=== PATIENT | female | born 1960 | race Caucasian/White ===

== ENCOUNTER 2023-06-21 01:13 | Inpatient (IN) | payer OTHER, SELFPAY ==
[2023-06-20 19:02] VITALS: BP 126/95
--- NOTE | 2023-06-20 19:36 | ED.GENMED ---
History of Present Illness
<MEHDI Fernandez - Last Filed: 06/22/23 23:26>
General
Chief Complaint: Swelling
Source: patient
Exam Limitations: none
Time Seen by Provider: 06/20/23 19:21
Nursing documentation reviewed up to this point in time: agreed with
Travel History
Have you had any contact with someone who has COVID-19?: No
Do you have any symptoms of coronavirus? Fever > 100 degrees, chills, cough, shortness of breath, sore throat, loss of taste or smell, muscle aches, or headache?: No
History of Present Illness
History of Present Illness:
63-year-old female currently being treated for multiple myeloma presents to the ER for evaluation of left lower leg swelling. She has noticed her left lower leg to be swollen for the past 3 days. She also reports she has been mildly short winded.
She denies any recent fevers. She does report she recently was treated for sinus infection at her primary care office and is on antibiotics. She was seen by , her grapple yarder operator today for asthma who did recommend she get a Doppler of left
lower extremity.
She is treated at [facility] by DR Rasheed.
Past History
<MEHDI Fernandez - Last Filed: 06/22/23 23:26>
Past History
ED Past Medical History: Cancer, GERD and HTN
ED Past Surgical History: Appendectomy
Social History
Tobacco: Non-smoker
Alcohol: None
Drug: None
Personal:
Living: with family
Review of Systems
<MEHDI Fernandez - Last Filed: 06/22/23 23:26>
Review of Systems
Allergies reviewed?: Yes
All Other Systems: ROS reviewed and negative except as documented in HPI and ROS
Constitutional: Reports no symptoms; Denies fever, fatigue or chills
EENT: Reports no symptoms
Respiratory: Reports trouble breathing
Cardiac: Reports no symptoms
ABD/GI: Reports no symptoms
Musculoskeletal: Reports other (lle swelling /discomfort )
Skin: Reports no symptoms
Neurological: Reports no symptoms
Psychiatric: Reports no symptoms
Phy Exam
<MEHDI Fernandez - Last Filed: 06/22/23 23:26>
General Physical Exam
General Presentation: no apparent distress
General age: appears stated age
General Skin: warm and dry
Musculoskeletal Exam
Musculoskeletal Exam: other (Left lower extremity strong pulses patient has obvious swelling to left lower leg, ankle mildly tender to palpation of posterior lower calf full ROM no erythema )
Skin Exam
Skin Exam: normal color and warm/dry
Psychiatric Exam
Psychiatric Exam: normal mood/affect
Scores
<MEHDI Fernandez - Last Filed: 06/22/23 23:26>
Heart Failure Risk
Heart Failure Risk Score: Not Applicable
Course
<MEHDI Fernandez - Last Filed: 06/22/23 23:26>
Orders/Labs/Results
Orders:
Orders
06/20/23 08:30
NT-proBNP Urgent
PTT Urgent
Comment: Obtain baseline before beginning heparin infusion if not already collected
Troponin I Urgent
06/20/23 19:33
IV Insert/Care/Rem.- Treatment PRN
06/20/23 19:49
Venous Doppler Lwr Ext Bilat [US Periph Venous LOWER Ext Nolan] Urgent
Comment:
Reason For Exam: left leg swelling/sob hx of multiple myeloma
06/20/23 19:53
Complete Blood Count/With Diff Urgent
Comprehensive Metabolic Panel Urgent
Direct Bilirubin Urgent
06/20/23 21:18
0.9% Sodium Chloride 500 ml [Nss] 500 ml IV BOLUS
06/20/23 21:50
CT Chest Pe Study Urgent
Comment:
Reason For Exam: sob
06/20/23 23:40
Heparin 6,000 units IV NOW STA
06/20/23 23:41
EKG- Treatment ONCE
Nursing to Place Non Medication Order As Directed
Physician Order: PTT 6 hours after initial start of Heparin infusion
Above order entered?: Yes
06/20/23 23:45
Heparin 02847 Units/250 ml 25,000 units in 250 ml IV PER PROTOCOL
Weight to be used for heparin protocol in kilograms (kg):: 74.389
Protocol:: DVT/PE
PTT Goal Range to be used:: PTT 73 to 111 seconds
Order type:: Initial
INITIAL Infusion Dose (UNITS/KG/hr) & then follow protocol:: 18 units/kg/hr
Infusion Dose in UNITS/hr & then follow protocol (UNITS/hr):: 1,300
INFUSION RATE in mL/hr & then follow protocol (mL/hr):: 13
For DVT/PE algorithm, re-bolus for low PTT?: Yes
PTT less than or equal to 64 seconds:: Re-bolus 80 units/kg (max 10,000units). Increase by 300 units/hr
(+ 3mL/hr)
PTT 64.1 to 72.9 seconds:: Re-bolus 40 units/kg (max 5,000 units). Increase by 200 units/hr
(+ 2mL/hr)
PTT 73 to 111 seconds:: Target Range. No change in rate.
PTT 111.1 to 130.9 seconds:: Decrease rate by 200 units/hr (- 2 mL/hr)
PTT 131 to 199.9 seconds:: HOLD for 1 hr. Then decrease by 200 units/hr (- 2mL/hr)
PTT greater than or equal to 200 seconds:: HOLD for 2 hrs & Notify Provider. Then decrease by 300 units/hr
(- 3mL/hr)
Lab follow-up:: Each change, PTT q6h until 2 consecutive are therapeutic. Then
PTT daily.
06/20/23 23:48
Heparin 6,000 units IV PRN PRN
06/20/23 23:49
Heparin 3,000 units IV PRN PRN
06/20/23 23:50
Add On- LAB Routine
Tests Added?: direct bilirubin
06/21/23 00:13
Amoxicillin 875 mg/Clav 125 mg [Augmentin 875 mg/125 mg] 1 tablet PO NOW STA
Montelukast Sodium [Singulair] 10 mg PO NOW STA
Pantoprazole [Protonix] 40 mg PO NOW STA
06/21/23 00:15
Admit/Transfer Patient As Directed
Co-Sign Provider:
Level of Care: Inpatient admission
Assign to:: IMU- Intermediate Care
Physician / Group: Karoline Bermudez
Diagnosis: saddle PE and RV strain
Reason for Hospitalization: saddle PE and RV strain
Expected length of stay greater than two midnights?: Yes
ELOS- Estimated Length of Stay in days: 3
I certify the patient meets the requirements for IP care: Yes
06/21/23 00:18
Code Status As Directed
Resuscitation Status: Full Code
06/21/23 00:20
0.9% Sodium Chloride 500 ml [Nss] 500 ml IV BOLUS
06/21/23 00:30
acyclovir 400 mg PO BID
06/21/23 02:10
Acetaminophen [Tylenol] 1,000 mg PO Q6HPRN PRN
Lactated Ringers [Lr] 1,000 ml IV 100 mls/hr
Oxycodone/Acetaminophen [Percocet 5/325] 1 tablet PO Q4HPRN PRN
06/21/23 02:10
Consult Notification Routine
Specialty to Notify: Hematology
Date consulting provider notified: 06/21/23
Time consulting provider notified: 07:07
Notified:: Provider
Consult Pulmonary [PULMONARY CONSULT] Routine
Consulting Provider: Zeus Grande
Was physician already notified: Yes
HEMATOLOGY CONSULT Routine
Consulting Provider: Erica Bobo
Was physician already notified: No
Reason for consult: hx multiple myeloma now with PE/DVT; due for radiation tomorrow L-spine
Heparin Protocol- PTT Orders As Directed
PTT per Heparin protocol: -Obtain CBC and baseline PTT - if not already collected.
-Obtain PTT 6 hours from start of infusion. Then, every 6 hours until 2 consecutive
PTT's are therapeutic. Then, PTT Daily.
-With each rate change, obtain PTT every 6 hours until 2 consecutive PTT's are
therapeutic. Then, PTT Daily.
Activity As Directed
Activity Level: Bedrest
Notify MD As Directed
Notify physician if: PTT is greater than or equal to 200.
Precautions As Directed
Type of Precautions: Neutropenic
Vital Signs As Directed
Frequency: Per unit guidelines
06/21/23 06:00
Echo 2D MMode Color/Doppler IN AM
Reason for Study: PE with RV strain
NPO
Allow oral meds: Yes
Allow clear liquids: No
06/21/23 06:13
Basic Metabolic Panel IN AM
Magnesium IN AM
06/21/23 08:00
Loratadine [Claritin] 10 mg PO DAILY
Pantoprazole [Protonix] 40 mg PO BID
06/21/23 09:00
Amoxicillin 875 mg/Clav 125 mg [Augmentin 875 mg/125 mg] 1 tablet PO Q12
Famotidine [Pepcid] 40 mg PO DAILY
06/21/23 22:00
Montelukast Sodium [Singulair] 10 mg PO HS
06/23/23 06:00
Complete Blood Count/No Diff DAILY
Comment: notify provider: Platelet count < 130,000 or decrease by 50% from baseline
06/24/23 06:00
Complete Blood Count/No Diff DAILY
Comment: notify provider: Platelet count < 130,000 or decrease by 50% from baseline
06/25/23 06:00
Complete Blood Count/No Diff DAILY
Comment: notify provider: Platelet count < 130,000 or decrease by 50% from baseline
06/26/23 06:00
Complete Blood Count/No Diff DAILY
Comment: notify provider: Platelet count < 130,000 or decrease by 50% from baseline
06/27/23 06:00
Complete Blood Count/No Diff DAILY
Comment: notify provider: Platelet count < 130,000 or decrease by 50% from baseline
06/28/23 06:00
Complete Blood Count/No Diff DAILY
Comment: notify provider: Platelet count < 130,000 or decrease by 50% from baseline
06/29/23 06:00
Complete Blood Count/No Diff DAILY
Comment: notify provider: Platelet count < 130,000 or decrease by 50% from baseline
06/30/23 06:00
Complete Blood Count/No Diff DAILY
Comment: notify provider: Platelet count < 130,000 or decrease by 50% from baseline
Abnormal Lab Results
06/20/23
19:53
WBC 1.4 L* 10^3/uL
(4.8-10.8)
RBC 3.69 L 10^6/uL
(4.20-5.40)
Hgb 11.1 L g/dL
(12.0-16.0)
Hct 32.3 L %
(37.0-47.0)
Absolute Neuts (auto) 0.3 L* 10^3/uL
(1.4-6.5)
Absolute Lymphs (auto) 0.6 L 10^3/uL
(1.2-3.4)
Immature Gran % 1.5 H %
(0-0.5)
Neutrophils % 19.9 L %
(42.2-75.2)
Monocytes % 32.6 H %
(1.7-9.3)
Sodium 132 L mmol/L
(135-145)
Glucose 105 H mg/dl
(70-99)
Total Bilirubin 1.6 H mg/dl
(0.2-1.3)
ALT 53 H U/L
(0-35)
Total Protein 6.2 L g/dl
(6.3-8.2)
06/20/23 19:53
06/20/23 19:53
Vital Signs
Initial and Last Documented VS:
Initial Vital Signs
Temp Pulse Resp BP Pulse Ox
98.4 F 92 18 126/95 98
06/20/23 19:02 06/20/23 19:02 06/20/23 19:02 06/20/23 19:02 06/20/23 19:02
Last Documented Vital Signs
Temp Pulse Resp BP Pulse Ox
98.2 F 93 26 113/76 98
06/22/23 19:35 06/22/23 21:00 06/22/23 21:00 06/22/23 21:00 06/22/23 21:00
Controls Engineer consulted with Physician
Controls Engineer consulted with physician?: Yes
Name of Physician Consulted: richard
<Chin Stone MD - Last Filed: 06/21/23 01:10>
Orders/Labs/Results
Orders:
Orders
06/20/23 08:30
NT-proBNP Urgent
PTT Urgent
Comment: Obtain baseline before beginning heparin infusion if not already collected
Troponin I Urgent
06/20/23 19:33
IV Insert/Care/Rem.- Treatment PRN
06/20/23 19:49
Venous Doppler Lwr Ext Bilat [US Periph Venous LOWER Ext Nolan] Urgent
Comment:
Reason For Exam: left leg swelling/sob hx of multiple myeloma
06/20/23 19:53
Complete Blood Count/With Diff Urgent
Comprehensive Metabolic Panel Urgent
Direct Bilirubin Urgent
06/20/23 21:18
0.9% Sodium Chloride 500 ml [Nss] 500 ml IV BOLUS
06/20/23 21:50
CT Chest Pe Study Urgent
Comment:
Reason For Exam: sob
06/20/23 23:40
Heparin 6,000 units IV NOW STA
06/20/23 23:41
EKG- Treatment ONCE
Nursing to Place Non Medication Order As Directed
Physician Order: PTT 6 hours after initial start of Heparin infusion
Above order entered?: Yes
06/20/23 23:45
Heparin 74556 Units/250 ml 25,000 units in 250 ml IV PER PROTOCOL
Weight to be used for heparin protocol in kilograms (kg):: 74.389
Protocol:: DVT/PE
PTT Goal Range to be used:: PTT 73 to 111 seconds
Order type:: Initial
INITIAL Infusion Dose (UNITS/KG/hr) & then follow protocol:: 18 units/kg/hr
Infusion Dose in UNITS/hr & then follow protocol (UNITS/hr):: 1,300
INFUSION RATE in mL/hr & then follow protocol (mL/hr):: 13
For DVT/PE algorithm, re-bolus for low PTT?: Yes
PTT less than or equal to 64 seconds:: Re-bolus 80 units/kg (max 10,000units). Increase by 300 units/hr
(+ 3mL/hr)
PTT 64.1 to 72.9 seconds:: Re-bolus 40 units/kg (max 5,000 units). Increase by 200 units/hr
(+ 2mL/hr)
PTT 73 to 111 seconds:: Target Range. No change in rate.
PTT 111.1 to 130.9 seconds:: Decrease rate by 200 units/hr (- 2 mL/hr)
PTT 131 to 199.9 seconds:: HOLD for 1 hr. Then decrease by 200 units/hr (- 2mL/hr)
PTT greater than or equal to 200 seconds:: HOLD for 2 hrs & Notify Provider. Then decrease by 300 units/hr
(- 3mL/hr)
Lab follow-up:: Each change, PTT q6h until 2 consecutive are therapeutic. Then
PTT daily.
06/20/23 23:48
Heparin 6,000 units IV PRN PRN
06/20/23 23:49
Heparin 3,000 units IV PRN PRN
06/20/23 23:50
Add On- LAB Routine
Tests Added?: direct bilirubin
06/21/23 00:13
Amoxicillin 875 mg/Clav 125 mg [Augmentin 875 mg/125 mg] 1 tablet PO NOW STA
Montelukast Sodium [Singulair] 10 mg PO NOW STA
Pantoprazole [Protonix] 40 mg PO NOW STA
06/21/23 00:15
Admit/Transfer Patient As Directed
Co-Sign Provider:
Level of Care: Inpatient admission
Assign to:: IMU- Intermediate Care
Physician / Group: Karoline Bermudez
Diagnosis: saddle PE and RV strain
Reason for Hospitalization: saddle PE and RV strain
Expected length of stay greater than two midnights?: Yes
ELOS- Estimated Length of Stay in days: 3
I certify the patient meets the requirements for IP care: Yes
06/21/23 00:18
Code Status As Directed
Resuscitation Status: Full Code
06/21/23 00:20
0.9% Sodium Chloride 500 ml [Nss] 500 ml IV BOLUS
06/21/23 00:30
acyclovir 400 mg PO BID
06/21/23 02:10
Acetaminophen [Tylenol] 1,000 mg PO Q6HPRN PRN
Lactated Ringers [Lr] 1,000 ml IV 100 mls/hr
Oxycodone/Acetaminophen [Percocet 5/325] 1 tablet PO Q4HPRN PRN
06/21/23 02:10
Consult Notification Routine
Specialty to Notify: Hematology
Date consulting provider notified: 06/21/23
Time consulting provider notified: 07:07
Notified:: Provider
Consult Pulmonary [PULMONARY CONSULT] Routine
Consulting Provider: Zeus Grande
Was physician already notified: Yes
HEMATOLOGY CONSULT Routine
Consulting Provider: Erica Bobo
Was physician already notified: No
Reason for consult: hx multiple myeloma now with PE/DVT; due for radiation tomorrow L-spine
Heparin Protocol- PTT Orders As Directed
PTT per Heparin protocol: -Obtain CBC and baseline PTT - if not already collected.
-Obtain PTT 6 hours from start of infusion. Then, every 6 hours until 2 consecutive
PTT's are therapeutic. Then, PTT Daily.
-With each rate change, obtain PTT every 6 hours until 2 consecutive PTT's are
therapeutic. Then, PTT Daily.
Activity As Directed
Activity Level: Bedrest
Notify MD As Directed
Notify physician if: PTT is greater than or equal to 200.
Precautions As Directed
Type of Precautions: Neutropenic
Vital Signs As Directed
Frequency: Per unit guidelines
06/21/23 06:00
Echo 2D MMode Color/Doppler IN AM
Reason for Study: PE with RV strain
NPO
Allow oral meds: Yes
Allow clear liquids: No
06/21/23 06:13
Basic Metabolic Panel IN AM
Magnesium IN AM
06/21/23 08:00
Loratadine [Claritin] 10 mg PO DAILY
Pantoprazole [Protonix] 40 mg PO BID
06/21/23 09:00
Amoxicillin 875 mg/Clav 125 mg [Augmentin 875 mg/125 mg] 1 tablet PO Q12
Famotidine [Pepcid] 40 mg PO DAILY
06/21/23 22:00
Montelukast Sodium [Singulair] 10 mg PO HS
06/23/23 06:00
Complete Blood Count/No Diff DAILY
Comment: notify provider: Platelet count < 130,000 or decrease by 50% from baseline
06/24/23 06:00
Complete Blood Count/No Diff DAILY
Comment: notify provider: Platelet count < 130,000 or decrease by 50% from baseline
06/25/23 06:00
Complete Blood Count/No Diff DAILY
Comment: notify provider: Platelet count < 130,000 or decrease by 50% from baseline
06/26/23 06:00
Complete Blood Count/No Diff DAILY
Comment: notify provider: Platelet count < 130,000 or decrease by 50% from baseline
06/27/23 06:00
Complete Blood Count/No Diff DAILY
Comment: notify provider: Platelet count < 130,000 or decrease by 50% from baseline
06/28/23 06:00
Complete Blood Count/No Diff DAILY
Comment: notify provider: Platelet count < 130,000 or decrease by 50% from baseline
06/29/23 06:00
Complete Blood Count/No Diff DAILY
Comment: notify provider: Platelet count < 130,000 or decrease by 50% from baseline
06/30/23 06:00
Complete Blood Count/No Diff DAILY
Comment: notify provider: Platelet count < 130,000 or decrease by 50% from baseline
Abnormal Lab Results
06/20/23
19:53
WBC 1.4 L* 10^3/uL
(4.8-10.8)
RBC 3.69 L 10^6/uL
(4.20-5.40)
Hgb 11.1 L g/dL
(12.0-16.0)
Hct 32.3 L %
(37.0-47.0)
Absolute Neuts (auto) 0.3 L* 10^3/uL
(1.4-6.5)
Absolute Lymphs (auto) 0.6 L 10^3/uL
(1.2-3.4)
Immature Gran % 1.5 H %
(0-0.5)
Neutrophils % 19.9 L %
(42.2-75.2)
Monocytes % 32.6 H %
(1.7-9.3)
Sodium 132 L mmol/L
(135-145)
Glucose 105 H mg/dl
(70-99)
Total Bilirubin 1.6 H mg/dl
(0.2-1.3)
ALT 53 H U/L
(0-35)
Total Protein 6.2 L g/dl
(6.3-8.2)
06/20/23 19:53
06/20/23 19:53
Vital Signs
Initial and Last Documented VS:
Initial Vital Signs
Temp Pulse Resp BP Pulse Ox
98.4 F 92 18 126/95 98
06/20/23 19:02 06/20/23 19:02 06/20/23 19:02 06/20/23 19:02 06/20/23 19:02
Last Documented Vital Signs
Temp Pulse Resp BP Pulse Ox
98.2 F 93 26 113/76 98
06/22/23 19:35 06/22/23 21:00 06/22/23 21:00 06/22/23 21:00 06/22/23 21:00
<MEHDI Fernandez - Last Filed: 06/22/23 23:26>
MDM/Problems Addressed
Differential Diagnosis Includes:
not limited to: DVT, PE
MDM/Problems Addressed:
Patient is a 63-year-old female with multiple myeloma who presents with left lower extremity swelling. Patient has had swelling for the past several days. She also admits to feeling short winded which is also new over the past several days. She
arrives awake alert. She is nontachycardic nontachypneic nonhypoxic. On exam she does have obvious swelling to left lower extremity. Due to high risk of multiple myeloma being treated with chemo bilateral ultrasounds were performed. Radiology
verbally called stating that patient does have extensive DVT in her left popliteal and calf veins. Patient's renal function is normal with a BUN of 13 and a creatinine of 0.8. She does however have a low white count of 1.4 with absolute
neutrophils of 0.3. With concerns of patient being short of breath with known DVT and high risk cancer patient PE is of concern. Patient voiced concerns about receiving IV contrast and reports she was told not to receive contrast due to her cancer.
Case d/c w/ Dr Stone who spoke with patient's hematology oncologist . Patient is safe for IV contrast, she has normal kidney function. Plan is for patient to have CT PE. care of pt transferred to Dr Stone.
<MEHDI Fernandez - Last Filed: 06/22/23 23:26>
*Radiology
Radiology exam reviewed: radiology read reviewed
*Pulse Oximetry
Patient hypoxic: no
<Chin Stone MD - Last Filed: 06/21/23 01:10>
*Pulse Oximetry
Patient hypoxic: no
*EKG
Interpreted by ED Provider?: Yes
Interpretation: normal
Comparison EKG: no changes
Heart Rate: 77
Rate: normal
Rhythm: sinus
[place]: normal axis
Interval: normal interval
QRS Pattern: normal QRS
Ischemia: no ischemia
*Caponizer Interpretation
Rate: normal
Interpretation: normal
Heart Rate: 80
Rhythm: sinus
*Critical Care Note
Total Time (30-74mins, 75-104mins- exclusive of procedures): 35
ED Attending Note
<MEHDI Fernandez - Last Filed: 06/22/23 23:26>
-
Portions of this chart may have been created with voice recognition software.� Occasional wrong word or��sound alike� substitutions may have occurred due to the inherent limitations of voice recognition software.
<Chin Stone MD - Last Filed: 06/21/23 01:10>
ED Attending Note
I performed the substantive portion of visit, reviewed & personally made and approve the management plan that is documented in note by myself or NIMO.: Yes
I performed a history and physical exam of patient and discussed management with resident, I reviewed resident's note and agree with documented findings and plan of care.: Yes
ED Attending Note:
Currently being treated for multiple myeloma. Complaining of left leg swelling. Also notes some slight increase shortness of breath last 2 to 3 days. This is minimal in nature. No fever no cough no other complaints. On exam patient is nontoxic
in no distress. Portable chest wall. Lungs clear and equal. Heart regular rate and rhythm. Perfusing well. Good pulse ox. Mild swelling in the left lower leg with minimal increased warmth. Good distal pulses and color.
Extensive DVT left popliteal and calf. Evaluation for pulmonary emboli after discussion with both patient's oncologist and reviewed with our nephrology I will feel CT with IV contrast is fine. Some fluids prior to the study.
Thanks CT scan shows saddle emboli with RV strain. However patient is clinically very stable. Will start IV heparin. PERT alert called after discussing with hospitalist in case there are deterioration in symptoms or issues
Discharge Plan
Departure
Patient Disposition: Admit
Date of Disposition: 06/20/23
Time of Disposition: 23:56
Presentation/result/management discussed w/ accepting MD/DO: Interventional radiology/
Discharge Problem:
Pulmonary emboli/saddle, DVT left leg, Multiple myeloma, Neutropenia
Interventions
Interventions:
*Risk Screen - Suicide Last Done: 06/21/23 02:22
*General Assessment Last Done: 06/20/23 19:02
*Neglect/Abuse Screening Last Done: 06/20/23 19:02
ED- Fall Risk Assessment Last Done: 06/20/23 21:39
*ED COVID-19 Vaccine History Last Done: 06/21/23 02:22
*Nursing Disposition Last Done: 06/21/23 02:23
ED- Cardiac Assessment Last Done: 06/20/23 21:15
ED- Pulmonary Assessment Last Done: 06/20/23 21:15
ED-Skin Assessment Last Done: 06/20/23 21:15
Discharge Date and Time
Discharge Date/Time: 06/21/23 02:23
[2023-06-20 19:54] VITALS: BP 122/77
[2023-06-20 20:07] LABS: % Basophils 1.5 % (0-2); % Immature Granulocytes 1.5 % (0-0.5); % Lymphocytes 41.5 % (20.5-51.1); % Monocytes 32.6 % (1.7-9.3); % Neutrophils 19.9 % (42.2-75.2); Absolute Lymphocytes 0.6 10^3/uL (1.2-3.4); Absolute Monocytes 0.4 10^3/uL (0.1-0.6); Hematocrit 32.3 % (37.0-47.0); Hemoglobin 11.1 g/dL (12.0-16.0); Mean Corp Hgb Conc. 34.4 g/dL (33.0-37.0); Mean Corpuscular Hgb 30.1 pg (27.0-31.0); Mean Corpuscular Volume 87.5 fL (81.0-99.0); Mean Platelet Volume 9.2 fL (7.4-10.4); Nucleated Red Blood Cells % 0 %; Platelet Count 157 10^3/uL (130-400); Red Blood Cell Count 3.69 10^6/uL (4.20-5.40); Red Cell Dist. Width 14.4 % (11.5-14.5)
[2023-06-20 20:21] LABS: ALT (SGPT) 53 U/L (0-35); AST (SGOT) 20 U/L (14-36); Albumin 3.6 g/dl (3.5-5.0); Alkaline Phosphatase 117 U/L (38-126); Blood Urea Nitrogen 13 mg/dl (7-17); Calcium 8.7 mg/dl (8.4-10.2); Carbon Dioxide 27 mmol/L (22-30); Chloride 101 mmol/L (98-107); Glucose 105 mg/dl (70-99); Potassium 3.9 mmol/L (3.5-5.1); Sodium 132 mmol/L (135-145); Total Bilirubin 1.6 mg/dl (0.2-1.3); Total Protein 6.2 g/dl (6.3-8.2); eGFR > 60.00
[2023-06-20 20:37] LABS: Absolute Neutrophils 0.3 10^3/uL (1.4-6.5)
[2023-06-20 20:38] LABS: White Blood Cell Count 1.4 10^3/uL (4.8-10.8)
[2023-06-20 21:12] VITALS: BP 132/82
[2023-06-20] MEDS: NSS 500 IV (21:42)
[2023-06-20 22:00] VITALS: BP 119/69
[2023-06-20 23:00] VITALS: BP 106/68
--- NOTE | 2023-06-20 23:47 | HPS.HSE ---
Addendum entered and electronically signed by Karoline Bermudez MD 06/21/23 00:45:
Pancytopenia
Neutropenia
-afebrile
-2/2 chemo; MM
-neutropenic precautions
Addendum entered and electronically signed by Karoline Bermudez MD 06/21/23 00:34:
patient was on aspirin for prophylaxis - will stop when starting heparin
Original Note:
Family Physician
-
Family Physician: Raymond Peng
Chief Complaint
-
left leg swelling
History of Present Illness
Ms. Tena Mar is a 63 yo woman with hx multiple myeloma (treated at [facility] by Dr. Rasheed), asthma who presents to the ER with LLE swelling and shortness of breath.
She states swelling left leg started a few days ago, initially thought it was tendonitis then spread to calf. + increasingly warm and tender. She feels winded with exertion, more so than normal. At rest denies shortness of breath.
No fevers/chills. No chest pain. No nausea/vomiting/diarrhea. No abdominal pain.
She follows at [facility] for treatment of myeloma. She just completed 21 days of Pomalidomide and is now on her off week. She was due for her weekly Daratumumab tomorrow.
Medical History
Past Medical History
Past Medical History: Reports Other (multiple myeloma, asthma)
Past Surgical History: Reports Appendectomy
Social History
Tobacco: Non-smoker
Alcohol: None
Family History
Family History: Not pertinent
Allergies / Home Medications
Allergies reflects when Allergies were last updated in [employer].
Home Medications with original date entered in [employer]
Allergy/Medication List:
Allergies
Allergy/AdvReac Type Severity Reaction Status Date / Time
No Known Allergies Allergy Verified 05/24/23 10:50
Home Medications
aspirin 81 mg tablet,delayed release 81 mg PO DAILY 05/09/17
fluticasone propionate 50 mcg/actuation nasal spray,suspension 1 spray intranasal DAILY ##1 05/11/17
daratumumab 20 mg/mL intravenous solution (Darzalex) 0 mg IV FR 05/24/23
dexamethasone 4 mg tablet 4 mg PO . DIRECTED 05/24/23
famotidine 40 mg tablet 40 mg PO DAILY 05/24/23
losartan 100 mg tablet 100 mg PO HS 05/24/23
montelukast 10 mg tablet 10 mg PO HS 05/24/23
pantoprazole 40 mg tablet,delayed release 40 mg PO BID 05/24/23
acetaminophen 500 mg tablet 1,000 mg PO FR 06/20/23
acetaminophen 500 mg tablet 1,000 mg PO Q6H PRN mild pain/fever 06/20/23
acyclovir 400 mg tablet 400 mg PO BID 06/20/23
diphenhydramine HCl 50 mg capsule 50 mg PO FR 06/20/23
ibuprofen 200 mg tablet 400 mg PO Q6H PRN mild pain 06/20/23
loratadine 10 mg tablet (Claritin) 10 mg PO DAILY 06/20/23
oxycodone-acetaminophen 5 mg-325 mg tablet 1 tab PO Q4H PRN moderate pain 06/20/23
phenylephrine HCl 0.5 % nasal spray 1 spray intranasal HS 06/20/23
pomalidomide 4 mg capsule (Pomalyst) 4 mg PO . DIRECTED 06/20/23
Review of Systems
-
History Source: Patient
A 12 point ROS was completed and negative except as noted: Yes
Physical Exam
Vital Signs
Vital Signs
Temp Pulse Resp BP Pulse Ox
98.4 F 71 17 119/69 100
06/20/23 19:02 06/20/23 22:00 06/20/23 22:00 06/20/23 22:00 06/20/23 22:00
Physical Exam
General: No Apparent Distress
HEENT: PERRLA
Respiratory: Clear; No Wheezes
Cardiac: S1/S2 and Regular Rhythm
GI: Soft and Non Tender
Musculoskeletal: Other (LLE with warmth and swelling)
Skin: Warm and Dry; No Rash
Neuro: AO x 3
Psych: Calm
Laboratory Results
-
06/20/23 19:53
06/20/23 19:53
Laboratory Results
Total Bilirubin 1.6 mg/dl (0.2-1.3) H 06/20/23 19:53
AST 20 U/L (14-36) 06/20/23 19:53
ALT 53 U/L (0-35) H 06/20/23 19:53
Alkaline Phosphatase 117 U/L (38-126) 06/20/23 19:53
Data Reviewed
-
Diagnostic Radiology: Report Reviewed by me
Lab Data: Labs Reviewed by me
Impression/Plan
-
Ms. Tena Mar is a 63 yo woman with hx multiple myeloma (treated at [facility] by Dr. Rasheed), asthma who presents to the ER with LLE swelling and shortness of breath.
Triage VS: T 98.4, P 92, RR 18, BP 126/95, SpO2 98%
LABS: WBC 1.4, Hg 11.1, PLT 157; ANC 300, Na 132, K+ 3.9, BUN 13, Cr 0.8, glucose 105, T. Bili 1.6, AST 20, ALT 53
LLE US
IMPRESSION:� No evidence of deep venous thrombosis of the right lower extremity.
Extensive deep venous thrombosis of the left popliteal and calf veins, as detailed above.
CTA CHEST - saddle PE with increased RV to LV ratio with right heart strain
MAR: IV heparin gtt
Saddle Pulmonary Embolism with Right Heart Strain
LLE DVT
-admit to IMU
-patient is hemodynamically stable and without need for oxygen; breathing comfortably
-heparin gtt starting now
-PERT alert called; formal consult tomorrow AM
-TTE
-keep NPO until pulm eval in case catheter directed thrombolysis recommended
Hx Multiple Myeloma
-follows at [facility] Dr. Rasheed - updated by Dr. Stone on PE
-on Daratumumab (next dose would be due tomorrow)
-hold Pomadlidomide given PE (can increase risk) - patient will follow up with Dr. Rasheed at discharge
-she is due for radiation tomorrow on spine; sees Dr. Del Rio here; will place formal consult
Asthma
-[employer] montelukast
Essential Hypertension
-hold [employer] losartan for now
Sinus infection
-patient with sinus pain/drainage x 3 weeks; PCP prescribed Augmentin earlier today, patient has not yet picked it up
-will start Augmentin here
GERD
-[employer] pepcid, protonix
DVT PPx heparin gtt
FULL CODE
[2023-06-21] VITALS (22 sets, daily range): BP systolic 73–137; BP diastolic 56–91
[2023-06-21 00:21] LABS: APTT 27.4 Sec (23.4-35.0)
[2023-06-21 00:23] LABS: Direct Bilirubin 0.4 mg/dl (0.0-0.4)
[2023-06-21] MEDS: HEPARIN 6000 UNITS IV (00:27)
[2023-06-21] MEDS: HEPARIN 25000 UNITS/250 ML IV (00:28)
[2023-06-21] MEDS: AUGMENTIN 875 MG/125 MG 1 TABLET PO ×3 (00:37→20:50)
[2023-06-21] MEDS: PROTONIX 40 MG PO ×2 (00:38→18:31)
[2023-06-21] MEDS: SINGULAIR 10 MG PO ×2 (00:38→21:59)
[2023-06-21 00:39] LABS: NT-proBNP 69.3 pg/ml; Troponin I < 0.012 ng/ml
[2023-06-21] MEDS: LR 1000 IV ×3 (02:57→20:51)
--- NOTE | 2023-06-21 03:31 | PTCARENOTE ---
Rec'd pt from ED RN with heparin gtt intact through L AC IV @ 13ml/hr. Pt AAOx3, stand/pivot from stretcher to bed. Pt very pleasant, calm, but curious about care. NSR, VSS, assessment as documented. Pt discussed ca hx with this RN, black markings
are visible on pt abdomen which she states are to bayron her radiation sites. When asked if there is anything the pt would like included in care, pt states 'I just hope they can contact my doctors at [facility] and let them know what is going on.' Education
and support provided. Pt educated to remain bedrest until further notice to reduce risk. Call preciado placed within reach.
[2023-06-21 06:41] LABS: APTT 192.7 Sec (23.4-35.0)
[2023-06-21 07:36] LABS: Blood Urea Nitrogen 11 mg/dl (7-17); Calcium 8.7 mg/dl (8.4-10.2); Carbon Dioxide 23 mmol/L (22-30); Chloride 107 mmol/L (98-107); Glucose 96 mg/dl (70-99); Magnesium 2.2 mg/dl (1.6-2.3); Potassium 3.8 mmol/L (3.5-5.1); Sodium 135 mmol/L (135-145); eGFR > 60.00
--- NOTE | 2023-06-21 08:16 | CON.ONC ---
Addendum entered and electronically signed by Raine Morelos MD 06/21/23 16:04:
Attempted to see patient, but she'd just left for IR thrombectomy.
History and chart reviewed, noted for multiple myeloma, recently (05/22/23) initiated treatment with darzalex, pomalyst and ASA 81mg, under the care of Dr. Del Rio.
She noted calf swelling 4-5 days ago, with progression of dyspnea. Sought ER evaluation and was found to have DVT and PE.
She has a h/o UE clot in the past, treated with Eliquis.
Suspect VTE provoked by pomalyst, despite ASA ppx.
Await thrombectomy per IR. I suspect she'll be on heparin drip following the procedure
Eventual transition to DOAC, to be continued indefinitely, or as long as she remains on pomalyst
Discussed plan with
Will follow along
Original Note:
Impression
Impression
IgG Kaplan multiple Myeloma (dx 2014) (currently on Pomalidomide, Daratumumab)
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
Diffuse lytic bone lesions
Hypogammaglobulinemia
Pancytopenia
Neutropenia
Shortness of breath
Acute PE w/ right heart strain
LLE DVT
Obesity
Plan
Plan
06/21 WBC 1.4, ANC 300
Neutropenic precautions
Monitor for fevers
CBC w/ diff daily
Currently off week of Pomalidomide
Outpatient schedule: Pomalidomide 4mg daily x21 days, 7 days off, repeat
Continue prophylactic Acyclovir
Continue heparin gtt
Baseline d-dimer
06/12/23 IgG 1520
Patient receives IVIG as needed for IgG level <600
Recommend transition to Eliquis upon discharge: 10mg BID x7 days followed by 5mg BID
Darzalex has been rescheduled to coincide with patient's office follow up.
This is scheduled with Dr. Del Rio on 06/28 @ 0915 in [place].
Patient History
History of Present Illness
Tena Mar is a 63 year old female who presented to the ER last evening, 06/20, for evaluation of LLE swelling and shortness of breath x3 days. US revealed extensive deep venous thrombosis of LLE. CT showing PE extending into each pulmonary trunk with
evidence of mild right heart strain. She reports history of LUE DVT in which she took Eliquis in the past. She has been admitted to IMU for further treatment. She denies acute chest pain. She denies recent travel or sick contacts.
She has history of multiple myeloma treated by Dr. Rasheed at [facility] and Dr. Del Rio at [facility]. She just completed 21 day cycle of Pomalidomide yesterday and is currently on her off week. She is due for weekly Daratumumab, today, 06/21, at
[facility]. She was last evaluated in the office 06/09/23. She was scheduled to begin radiation 06/12-06/25 for sacral plasmacytoma. She resumed Darzalex 05/22/23. She had noted fatigue, mild constipation, and back pain relieved by Advil. She has required
intermittent IVIG for recurrent upper respiratory infections. Last received IVIG 03/22/23. Last IgG level on 06/12/23 was 1520. She had been managed on daily Aspirin.
Past-Medical/Surgical History
IgG Kaplan multiple Myeloma (2014)
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
Diffuse lytic bone lesions
Hypogammaglobulinemia
Recurrent URIs/sinusitis/bronchitis
Asthma
GERD
Hypertension
Appendectomy
Degenerative arthritis
Constipation
Hypercholesterolemia
ETOH 2-3 drinks/week
Possible Gilbert's syndrome
Thyroid cyst
Neuropathic pain
Patient Medication
Medication Instructions Recorded Confirmed Last Taken Type
aspirin 81 mg tablet,delayed 81 mg PO DAILY 05/09/17 06/20/23 06/20/23 History
release
fluticasone propionate 50 1 spray intranasal DAILY ##1 05/11/17 06/20/23 06/20/23 Rx
mcg/actuation nasal
spray,suspension
daratumumab 20 mg/mL intravenous 0 mg IV FR 05/24/23 06/20/23 06/14/23 History
solution (Darzalex)
dexamethasone 4 mg tablet 4 mg PO . DIRECTED 05/24/23 06/20/23 06/16/23 History
famotidine 40 mg tablet 40 mg PO DAILY 05/24/23 06/20/23 06/20/23 History
losartan 100 mg tablet 100 mg PO HS 05/24/23 06/20/23 06/19/23 History
montelukast 10 mg tablet 10 mg PO HS 05/24/23 06/20/23 06/19/23 History
pantoprazole 40 mg tablet,delayed 40 mg PO BID 05/24/23 06/20/23 06/20/23 History
release
acetaminophen 500 mg tablet 1,000 mg PO FR 06/20/23 06/20/23 06/14/23 History
acetaminophen 500 mg tablet 1,000 mg PO Q6H PRN mild pain/fever 06/20/23 06/20/23 Unknown History
acyclovir 400 mg tablet 400 mg PO BID 06/20/23 06/20/23 06/20/23 History
diphenhydramine HCl 50 mg capsule 50 mg PO FR 06/20/23 06/20/23 06/14/23 History
ibuprofen 200 mg tablet 400 mg PO Q6H PRN mild pain 06/20/23 06/20/23 06/20/23 09:00 History
loratadine 10 mg tablet (Claritin) 10 mg PO DAILY 06/20/23 06/20/23 06/20/23 History
oxycodone-acetaminophen 5 mg-325 1 tab PO Q4H PRN moderate pain 06/20/23 06/20/23 06/19/23 History
mg tablet
phenylephrine HCl 0.5 % nasal spray 1 spray intranasal HS 06/20/23 06/20/23 06/19/23 History
pomalidomide 4 mg capsule 4 mg PO . DIRECTED 06/20/23 06/20/23 06/20/23 History
(Pomalyst)
Active Medications
Generic Name Dose Route Start Last Admin
Trade Name Freq PRN Reason Stop Dose Admin
Acetaminophen 1,000 mg 06/21/23 02:10
Acetaminophen 500 Mg Tablet PO 07/19/23 02:09
Q6HPRN PRN
mild pain/fever
Amoxicillin/Clavulanate Potassium 1 tablet 06/21/23 08:00
Amoxicillin (875 Mg)/Clavulanate (125 Mg) Tablet PO
Q12 DMITRI
Famotidine 40 mg 06/21/23 08:00
Famotidine 40 Mg Tablet PO 07/19/23 07:59
DAILY DMITRI
Heparin Sodium 6,000 units 06/20/23 23:48
Heparin 80 Units/Kg Iv Rebolus IV 07/18/23 23:47
PRN PRN
PTT < OR = 64 seconds
Heparin Sodium 3,000 units 06/20/23 23:49
Heparin 40 Units/Kg Iv Rebolus IV 07/18/23 23:48
PRN PRN
PTT = 64.1 to 72.9 seconds
Heparin Sodium 25,000 units in 250 mls @ 0 mls/hr 06/20/23 23:45 06/21/23 00:28
Heparin 87778 Units/250 Ml IV 250 mls
PER PROTOCOL DMITRI Administration
Protocol
Per Protocol
Lactated Ringer's 1,000 mls @ 100 mls/hr 06/21/23 02:10 06/21/23 02:57
Lr IV 1,000 mls
.Q10H DMITRI Administration
Loratadine 10 mg 02/16/24 08:00
Loratadine 10 Mg Tablet PO 07/19/23 07:59
DAILY DMITRI
Montelukast Sodium 10 mg 06/21/23 22:00
Montelukast Sodium 10 Mg Tablet PO 07/19/23 21:59
HS DMITRI
Non-Formulary Medication 400 mg 06/21/23 00:30 06/21/23 02:57
Acyclovir PO 07/19/23 00:29 Not Given
BID DMITRI
Oxycodone/Acetaminophen 1 tablet 06/21/23 02:10
Oxycodone 5 Mg/Apap 325 Mg (Percocet) PO 07/05/23 02:09
Q4HPRN PRN
moderate pain
Pantoprazole Sodium 40 mg 06/21/23 08:00
Pantoprazole 40 Mg Delayed Release Tablet PO 07/19/23 07:59
BID DMITRI
Review of Systems
-
History Source: Patient, Coordinated Provider and Records
Constitutional: Reports Fatigue
EENT: Reports No Symptoms
Respiratory: Reports No Symptoms
Cardiac: Reports No Symptoms
GI: Reports No Symptoms
Breast: Reports N/A
: Reports No Symptoms
Musculoskeletal: Reports Edema
Skin: Reports No Symptoms
Neuro: Reports No Symptoms
Endocrine: Reports No Symptoms
Hematologic/Lymphatic: Reports No Symptoms
Allergy / Immunology: Reports No Symptoms
Psych: Reports No Symptoms
Physical Exam
-
Patient is resting in bed. IV team at bedside accessing port. Patient states LLE pain has improved since initiation of heparin gtt.
General: Well Developed, Well Nourished, Comfortable and Conversant; Negative Pain, Fever or Chills
HEENT: Negative Jaundice
Cardiology: S1 and S2
Pulmonary: Clear and Other (room air)
GI: Soft and Normal Bowel Sounds
Musculoskeletal: Edema, Right Lower Extrem (+1), Edema, Left Lower Extrem (+2, pitting) and No Atrophy
Extremities: Pulses Present
Neurology: Non Focal
Skin: Warm, Dry and Other (mild pallor)
Psych: Calm
Labs
Lab Results
WBC 1.4 10^3/uL (4.8-10.8) L* 06/20/23:53
RBC 3.69 10^6/uL (4.20-5.40) L 06/20/23:53
Hgb 11.1 g/dL (12.0-16.0) L 06/20/23:53
Hct 32.3 % (37.0-47.0) L 06/20/23:
MCV 87.5 fL (81.0-99.0) 06/20/23:53
MCH 30.1 pg (27.0-31.0) 06/20/23:
MCHC 34.4 g/dL (33.0-37.0) 06/20/23:53
RDW 14.4 % (11.5-14.5) 06/20/23:53
Plt Count 157 10^3/uL (130-400) 06/20/23:53
MPV 9.2 fL (7.4-10.4) 06/20/23:53
Abs Immat Gran (auto) 0.0 10^3/uL (0-0.05) 06/20/23:
Absolute Neuts (auto) 0.3 10^3/uL (1.4-6.5) L* 06/20/23:53
Absolute Lymphs (auto) 0.6 10^3/uL (1.2-3.4) L 06/20/23:53
Absolute Monos (auto) 0.4 10^3/uL (0.1-0.6) 06/20/23:53
Absolute Eos (auto) 0.0 10^3/uL (0-0.7) 06/20/23:53
Absolute Basos (auto) 0.0 10^3/uL (0-0.2) 06/20/23 19:53
Immature Gran % 1.5 % (0-0.5) H 06/20/23 19:53
Neutrophils % 19.9 % (42.2-75.2) L 06/20/23 19:53
Lymphocytes % 41.5 % (20.5-51.1) 06/20/23 19:53
Monocytes % 32.6 % (1.7-9.3) H 06/20/23 19:53
Eosinophils % 3.0 % (0-6) 06/20/23 19:53
Basophils % 1.5 % (0-2) 06/20/23 19:53
Creatinine 0.8 mg/dL (0.6-1.0) 06/21/23 06:13
06/11/23 Skeletal survey: Redemonstrated multiple lytic lesions throughout spine without definite new lesions. Redemonstrated mass centered in the right sacral mojgan better demonstrated on MRI spine.
06/20/23 PV US: Right lower extremity: There is no evidence of deep venous thrombosis. Normal flow is demonstrated in the posterior tibial, popliteal, superficial femoral and common femoral veins. These vessels are normally compressible and
demonstrate normal flow augmentation with compression.
Left lower extremity: There is no thrombus seen in the left common femoral or femoral veins. Occlusive thrombus is seen in the left popliteal vein, left peroneal vein trunk and left posterior tibial vein.
06/20/23: Chest CT:1. Positive for pulmonary embolism. Subtle embolus extends into each main pulmonary trunk, and the segmental pulmonary arteries as detailed above.Right ventricle to left ventricle ratio measures 1.3, suggestive of mild right heart
strain. Moderate hiatal hernia.1 cm right thyroid nodule. Consider dedicated thyroid ultrasound for further characterization.
Vital Signs
Vital Signs
Temp Pulse Resp BP Pulse Ox
98.2 F 68 17 103/69 97
06/21/23 07:54 06/21/23 06:00 06/21/23 06:00 06/21/23 06:00 06/21/23 06:00
06/12/23 myeloma panel:
MARLENA: One distinct and one faint IgG - Kaplan monoclonal proteins detected
Free kappa light chains: 13.4
Free lambda light chains 3.7
Albumin SPEP 3.5
B2M 2.94, free K/L ratio 3.62
IgA 30, IgG 1520, IgM 18
Creat 0.92
--- NOTE | 2023-06-21 09:10 | CON.PUL ---
Consultation
Consultation Request
Date/Time Consultation Requested: 06/21/23
Date/Time Consultation Performed: 06/21/23
Performing Provider: Giancarlo
Reason for Consultation: PE
Medical History
-
History of Present Illness:
Patient is a 63 year old woman with history of multiple myeloma (followed at [facility] by Dr. Rasheed), asthma who presents to the ER with LLE swelling and shortness of breath. States swelling started a few days ago, with reported increasing warmth and
tenderness, worsening ZAMBRANO.� CTA on arrival showing large saddle PE with mild RHS.
She notes that she has never had PE specifically before but had an episode of LUE superficial thrombophlebitis from IVs, was placed on Eliquis by her hematology team.
She follows at [facility] for treatment of myeloma.� She just completed 21 days of Pomalidomide and is now on her off week.� She was due for her weekly Daratumumab tomorrow.� �
She has a R sided PORT.
Past Medical History
Past Medical History: Other (see list below)
Social History
Tobacco: Non-smoker
Alcohol: None
Drug: None
Family History
Family History: Reviewed & Not Pertinent
Allergies / Home Medications
Allergies
Allergy/AdvReac Type Severity Reaction Status Date / Time
No Known Allergies Allergy Verified 05/24/23 10:50
Home Medications
Medication Instructions Recorded Confirmed Last Taken Type
aspirin 81 mg tablet,delayed 81 mg PO DAILY 05/09/17 06/20/23 06/20/23 History
release
fluticasone propionate 50 1 spray intranasal DAILY ##1 05/11/17 06/20/23 06/20/23 Rx
mcg/actuation nasal
spray,suspension
daratumumab 20 mg/mL intravenous 0 mg IV FR 05/24/23 06/20/23 06/14/23 History
solution (Darzalex)
dexamethasone 4 mg tablet 4 mg PO . DIRECTED 05/24/23 06/20/23 06/16/23 History
famotidine 40 mg tablet 40 mg PO DAILY 05/24/23 06/20/23 06/20/23 History
losartan 100 mg tablet 100 mg PO HS 05/24/23 06/20/23 06/19/23 History
montelukast 10 mg tablet 10 mg PO HS 05/24/23 06/20/23 06/19/23 History
pantoprazole 40 mg tablet,delayed 40 mg PO BID 05/24/23 06/20/23 06/20/23 History
release
acetaminophen 500 mg tablet 1,000 mg PO FR 06/20/23 06/20/23 06/14/23 History
acetaminophen 500 mg tablet 1,000 mg PO Q6H PRN mild pain/fever 06/20/23 06/20/23 Unknown History
acyclovir 400 mg tablet 400 mg PO BID 06/20/23 06/20/23 06/20/23 History
diphenhydramine HCl 50 mg capsule 50 mg PO FR 06/20/23 06/20/23 06/14/23 History
ibuprofen 200 mg tablet 400 mg PO Q6H PRN mild pain 06/20/23 06/20/23 06/20/23 09:00 History
loratadine 10 mg tablet (Claritin) 10 mg PO DAILY 06/20/23 06/20/23 06/20/23 History
oxycodone-acetaminophen 5 mg-325 1 tab PO Q4H PRN moderate pain 06/20/23 06/20/23 06/19/23 History
mg tablet
phenylephrine HCl 0.5 % nasal spray 1 spray intranasal HS 06/20/23 06/20/23 06/19/23 History
pomalidomide 4 mg capsule 4 mg PO . DIRECTED 06/20/23 06/20/23 06/20/23 History
(Pomalyst)
Review of Systems
-
History Source: Patient
All other systems: Negative unless noted
Vitals / Labs / Diagnostic Testing
Vital Signs
Temp Pulse Resp BP Pulse Ox
98.2 F 68 17 103/69 97
06/21/23 07:54 06/21/23 06:00 06/21/23 06:00 06/21/23 06:00 06/21/23 06:00
Lab Data
06/20/23 19:53
06/21/23 06:13
Laboratory Results
06/20/23 06/21/23
08:30 06:13
APTT 27.4 192.7 H*
Diagnostic Testing:
Physical Exam
-
HEENT: Normocephalic, Anicteric and Moist Mucous Membranes
Cardiovascular: S1/S2, Regular Rhythm, Peripheral Edema, Calf Tenderness and Other (PORT placed)
Respiratory: Clear and Non-Labored Respirations
GI: Soft, Non Distended and Non Tender
Neurology: Awake, Alert, Oriented and No Motor Deficits
Skin: Warm, Dry and Good Color
General: Comfortable and Other (NAD)
Assessment
-
Patient is a 63 year old woman with history of multiple myeloma (followed at [facility] by Dr. Rasheed), asthma who presents to the ER with LLE swelling and shortness of breath. States swelling started a few days ago, with reported increasing warmth and
tenderness, worsening ZAMBRANO.� CTA on arrival showing large saddle PE with mild RHS. We are consulted for eval 06/21/23.
Acute PE/saddle embolus
Mild RHS
ZAMBRANO
LLE DVT
Leukopenia, 1.4
Anemia, Hb 11
Conditions present [employer]
Multiple myeloma s/p chemo and autologous BMT� �
s/p PORT, managed at [facility], Dr Rasheed
Completed 21 days of Pomalidomide/on weekly Daratumumab
She has a R sided PORT
Asthma, cough variant
Follows with Dr Almaraz
FeNO neg, normal PFT 2016, maintained on Flovent
LUE superficial thrombophlebitis from IVs, t/w Eliquis
Allergic rhinitis
HTN
GERD
HLD
TMJ� �
Herniated disc� �
Overweight, BMI 28
Osteopenia� �
Acute pancreatitis
Shingles� - 2018
Squamous cell skin cancer� �
Thyroid cyst� �
Plasmacytoma
Appendectomy� �
LPS cholecystectomy� �
Hysteroscopy D + C� �
Arthroscopy, multiple (bilateral knee)�
Plan
No oxygen was needed on admission, currently saturating 96% on RA
Prior history of lung disease is noted including cough variant asthma, maintained on daily ICS/outpatient records reviewed
Follows with Dr Almaraz
Normal PFTs in past
Acute saddle PE noted on CT-reviewed
Discussed options with tPA vs suction thrombectomy, patient agreeable to intervention, does not want tPA
IR consult for eval, agreeable to trial of suction attempt
Started on IV heparin
She has been on Eliquis in past, likely will need lifelong OAC
But can defer to outpatient heme for decision
No prior ECHO noted in past
New study obtained, ECHO results pending
Trop neg
MM history, maintained on Chemo as outpatient
Follows at [facility]
Will need outpatient pulmonary evaluation in our office for PFTs and 6MWT
Reviewed with patient
Risk factors assessed for underlying sleep disordered breathing also noted, recommend outpatient PSG/sleep evaluation
+snoring
We will follow
Diagnostic Data
CXR 07/21/21- IMPRESSION: 1. � No radiographic evidence for airspace or interstitial disease in the lungs. 2. � Normal heart size without evidence for acute pulmonary edema. 3. � Right IJ chemotherapy Mediport in place.
CT CHEST 06/20/23- IMPRESSION:
1. Positive for pulmonary embolism. Subtle embolus extends into each main pulmonary trunk, embolization extends into the right lower lobe, right upper lobe, and left upper lobe pulmonary arteries. Right ventricle to left ventricle ratio measures 13.
No contrast reflux into the IVC.
2. Right ventricle to left ventricle ratio measures 1.3, suggestive of mild right heart strain.
3. Moderate hiatal hernia.
4. 1 cm right thyroid nodule. Consider dedicated thyroid ultrasound for further characterization.
Duplex 06/20/23- IMPRESSION:� No evidence of deep venous thrombosis of the right lower extremity.
Extensive deep venous thrombosis of the left popliteal and calf veins.
PFT 10/18/16: FEV1 2.85L 106%, FVC 3.46L 101%, ratio 82. TLC 5.84L 118%, DLCO 63%
[2023-06-21] MEDS: PEPCID 40 MG PO (09:33)
[2023-06-21] MEDS: CLARITIN 10 MG PO (09:33)
[2023-06-21] MEDS: ZOVIRAX 400 MG PO ×2 (09:34→20:50)
[2023-06-21 10:04] LABS: INR 1.18; PT 14.9 Sec (11.4-14.6)
[2023-06-21 10:06] LABS: D-Dimer 1.04 ug/mlFEU (0.00-0.50)
[2023-06-21 10:08] LABS: Troponin I < 0.012 ng/ml
--- NOTE | 2023-06-21 10:26 | PTCARENOTE ---
Patient AAOx3. C/o slight ZAMBRANO and LLE swelling/pain at times. Heparin gtt restarted per protocol. VSS. NSR. 95% on RA. Patient making needs known. Continuing to closely monitor patient.
--- NOTE | 2023-06-21 12:04 | W.PN.HOSP.TC ---
Today's Communication/Plan
-
IRAD for suction embolectomy
cont heparin gtt for now
NPO till procedure
monitor in IMU
ECHO pending
Assessment / Plan
Assessment / Plan
Saddle Pulmonary Embolism with Right Heart Strain
LLE DVT
-patient is hemodynamically stable and without need for oxygen; breathing comfortably
-heparin gtt now with eventual transition to NOAC.
-PERT alert called
-TTE
-Plan for suction embolectomy per IRAD today.
-Monitor for any sudden drop in blood pressure or severe increase in heart rate. May require transfer to ICU with concern for obstructive shock
-trop negative.
-pulm on board
Hx Multiple Myeloma
Neutropenia and anemia secondary to chemotherapy
-follows at [facility] Dr. Rasheed - updated by Dr. Stone on PE
-on Daratumumab (next dose would be due tomorrow)
-hold Pomadlidomide given PE (can increase risk) - patient will follow up with Dr. Rasheed at discharge
-Cont prophylactic medication with acyclovir
-onc c/s
Asthma
-MANUFACTURING DESIGN ENGINEER montelukast
Essential Hypertension
-hold MANUFACTURING DESIGN ENGINEER losartan for now
Sinus infection
-patient with sinus pain/drainage x 3 weeks; PCP prescribed Augmentin earlier today, patient has not yet picked it up
-will start Augmentin here
GERD
-MANUFACTURING DESIGN ENGINEER pepcid, protonix
DVT PPx heparin gtt
FULL CODE
Discussed with pulmonary and IRAD and RN
Anticipated Discharge: > 48 hours
Subjective/Interval History
-
Date of Service: June 21, 2023
Resting in bed
no chest pain or shortness of breath
Not on oxygen
Objective Data
-
Labs:
Laboratory Results
02/15/24 02/16/24 02/16/24
08:30 06:13 09:34
PT 14.9 H
INR 1.18
APTT 27.4 192.7 H*
Sodium 135
Potassium 3.8
Chloride 107
Carbon Dioxide 23
BUN 11
Creatinine 0.8
Glucose 96
Calcium 8.7
06/21/23
13:45
PT
INR
APTT Pending
Sodium
Potassium
Chloride
Carbon Dioxide
BUN
Creatinine
Glucose
Calcium
Vital Signs:
Vital Signs
Temp Pulse Resp BP Pulse Ox
99.1 F 65 20 95/70 96
06/21/23 11:54 06/21/23 10:00 06/21/23 10:00 06/21/23 10:00 06/21/23 10:00
I&O
06/20/23 06/21/23 06/22/23
06:59 06:59 06:59
Intake Total 0 / 0
Balance 0 / 0
Physical Exam
-
General: Well Developed and No Apparent Distress
HEENT: Normocephalic, Atraumatic and Moist Mucous Membranes
Respiratory: Clear to Auscultation
Cardiac: Regular Rhythm and S1/S2; Negative Murmur, Rub or Gallop
GI: Soft, Nontender, Nondistended and Normal Bowel Sounds; Negative Organomegaly
Rectal: Deferred by Provider
Musculoskeletal: No Clubbing, No Cyanosis and Edema, Left Lower Extrem
Skin: Negative Rash
Neuro: Awake, AO x 3, No Motor Deficits and Nonfocal/Grossly Intact
Psych: Calm
Data Reviewed
-
Total Time Spent with Patient (in minutes): 55
--- NOTE | 2023-06-21 16:44 | W.PN.UPDATE ---
Update Note
Progress Note Update
Pulmonary arteriogram confirmed large saddle embolus. Suction embolectomy performed, yielding large amount of embolus. Followup arteriogram much improved on each side.
Bedrest for 2 hours. Please hold heparin until 7 pm, then OK to resume.
--- NOTE | 2023-06-21 17:15 | PTCARENOTE ---
Received patient back from IR. VSS. Right groin dressing CDI. Pulses intact. To lay flat until 1829. Per MD, to restart heparin 2 hours after sheath removal (1621) so will plan for 1821. Patient with no complaints. Updated on plan.
--- NOTE | 2023-06-21 17:52 | CM ---
met with patient and her at bedside/.patient lives with spouse in house with 2 steps to enter,her bed and bath is on the second level.she is totally I at home.her pcp is dr logan hahn and she uses [facility] in [place].patient is adm
with saddle pe and is on a heparin gtt.
plan is for patient to dc home with no needs.
[2023-06-21 19:06] LABS: Hematocrit 28.8 % (37.0-47.0); Hemoglobin 10.2 g/dL (12.0-16.0); Mean Corp Hgb Conc. 35.4 g/dL (33.0-37.0); Mean Corpuscular Hgb 30.4 pg (27.0-31.0); Mean Platelet Volume 9.1 fL (7.4-10.4); Nucleated Red Blood Cells % 0 %; Platelet Count 173 10^3/uL (130-400); Red Blood Cell Count 3.35 10^6/uL (4.20-5.40); Red Cell Dist. Width 14.6 % (11.5-14.5)
--- NOTE | 2023-06-21 19:07 | W.PN.UPDATE ---
Addendum entered and electronically signed by MEHDI Hankins 06/21/23 20:33:
Add to above note, Dr. Guzman hospitalist was also updated.
Original Note:
Update Note
Progress Note Update
Responded to urgent staff request, patient profusely bleeding from right groin site s/p Pulmonary arteriogram of large saddle embolus, suction embolectomy performed, yielding large amount of embolus by IR. Pressure immediately placed at right groin
site, held for 10 minutes, site checked no further bleeding noted. 1L LR given patient slightly hypotensive during event SBP 80/60s and pale, not diaphoretic. Dr. Lynch, interventional radiologist updated, orders received: resume heparin gtt 2
hours after bleeding at groin site has resolved, bedrest for 2 hours after heparin gtt has been initiated. Patient had to void urine and bowel, assisted log rolled to bedpan, no further bleeding at groin site. Updated RN at bedside of new orders
and recommendations.
[2023-06-21 19:18] LABS: APTT 25.6 Sec (23.4-35.0)
[2023-06-21 19:19] LABS: Blood Urea Nitrogen 13 mg/dl (7-17); Calcium 8.8 mg/dl (8.4-10.2); Carbon Dioxide 22 mmol/L (22-30); Chloride 102 mmol/L (98-107); Estimated Creatinine Clearance 82 ml/min; Glucose 110 mg/dl (70-99); Potassium 3.9 mmol/L (3.5-5.1); Sodium 134 mmol/L (135-145); eGFR > 60.00
[2023-06-21 19:36] LABS: Band Neutrophils 0 % (0-3); Lymphocytes 64 % (20-51); Monocytes 16 % (2-9); Segmented Neutrophils 14 % (42-75)
[2023-06-21 19:37] LABS: Anisocytosis 1+; Atypical Lymphocytes 4 %; Metamyelocytes 2 % (-); Normal RBC Morphology No; Ovalocytes Occasional; Platelets Checked Yes; Total Cells Counted 100
[2023-06-21 19:38] LABS: Absolute Neutrophils -Man Diff 0.1 10^3/uL (1.4-6.5); Troponin I 0.901 ng/ml
[2023-06-21 19:39] LABS: White Blood Cell Count 1.3 10^3/uL (4.8-10.8)
--- NOTE | 2023-06-21 19:54 | PTCARENOTE ---
At 1830 when post procedure bedrest ended, right groin dressing was CDI, pulses intact, upon sitting up patient began to bleed from right groin site. [employer] called. Pressure held at site for 20 minutes. See [employer] form for interventions. Heparin never
restarted per MD Lynch's orders, new orders placed for holding heparin and bedrest to resume. See orders. Patient currently having urge to have BMs, has had 2, with some blood streaks noted. Patient states has had hemorrhoids in the past.
Currently VSS. Patient NSR on monitor. Patient with no complaints. Currently flat. Right groin dressing CDI, pulses intact. Bolus infusing. Continuing to monitor patient. Report handed off to shift supervisor melting.
[2023-06-21] MEDS: LR IV (20:16)
--- NOTE | 2023-06-21 22:30 | PTCARENOTE ---
Assume care from AM RN. AAOX3, anxious and tremors. NSR to ST in the monitor. Trace on the Rt and +1 edema on the Lt . Neurovascular assessment done. Rt going site minimal bleeding noted in the dressing. Heparin gtt restarted at 2130 at 11 ml/hr.
Weak pulses B/L legs. Lung sounds are diminished at the bases SaO2 95% RA. Round obese abd. Pt been having multiple small BM. Pt was unable to urinate and was bladder scanned. Pt had 738 ml. Pt was straight cath for 900 ml. Pt remains in bedrest and
Rt limb restrictions from moving. Will cont with tx plan.
[2023-06-22] VITALS (23 sets, daily range): BP systolic 94–121; BP diastolic 59–77; BMI 28.4
[2023-06-22 04:25] LABS: Hematocrit 26.6 % (37.0-47.0); Hemoglobin 9.2 g/dL (12.0-16.0); Mean Corp Hgb Conc. 34.6 g/dL (33.0-37.0); Mean Corpuscular Hgb 29.6 pg (27.0-31.0); Mean Corpuscular Volume 85.5 fL (81.0-99.0); Mean Platelet Volume 9.3 fL (7.4-10.4); Platelet Count 158 10^3/uL (130-400); Red Blood Cell Count 3.11 10^6/uL (4.20-5.40); Red Cell Dist. Width 14.6 % (11.5-14.5)
[2023-06-22 04:35] LABS: White Blood Cell Count 1.1 10^3/uL (4.8-10.8)
[2023-06-22 04:41] LABS: APTT 77.5 Sec (23.4-35.0)
[2023-06-22 04:51] LABS: Blood Urea Nitrogen 12 mg/dl (7-17); Carbon Dioxide 26 mmol/L (22-30); Chloride 105 mmol/L (98-107); Estimated Creatinine Clearance 83 ml/min; Glucose 95 mg/dl (70-99); Potassium 3.6 mmol/L (3.5-5.1); Sodium 133 mmol/L (135-145); eGFR > 60.00
[2023-06-22 05:06] LABS: Troponin I 0.696 ng/ml
[2023-06-22] MEDS: HEPARIN 25000 UNITS/250 ML IV (05:16)
[2023-06-22] MEDS: LR 1000 IV (07:17)
[2023-06-22] MEDS: PROTONIX 40 MG PO ×2 (08:00→17:05)
[2023-06-22] MEDS: CLARITIN 10 MG PO (08:00)
[2023-06-22] MEDS: AUGMENTIN 875 MG/125 MG 1 TABLET PO ×2 (08:00→19:43)
[2023-06-22] MEDS: PEPCID 40 MG PO (08:00)
[2023-06-22] MEDS: ZOVIRAX 400 MG PO ×2 (08:00→19:44)
[2023-06-22 09:05] LABS: Absolute Neutrophils -Man Diff 0.2 10^3/uL (1.4-6.5); Band Neutrophils 0 % (0-3); Lymphocytes 51 % (20-51); Monocytes 25 % (2-9); Segmented Neutrophils 24 % (42-75)
[2023-06-22 09:06] LABS: Platelets Checked YES
[2023-06-22 09:07] LABS: Anisocytosis Slight; Macrocytosis FEW; Normal RBC Morphology No; Ovalocytes FEW
[2023-06-22 09:08] LABS: Total Cells Counted 100
--- NOTE | 2023-06-22 09:10 | W.PN.UPDATE ---
Update Note
Progress Note Update
Patient feels well, denies shortness of breath or chest pain. Sitting up in bed eating breakfast.
Episode of bleeding yesterday evening from the right groin, was stopped with manual pressure. Groin is soft this morning, mild ecchymosis.
Hemoglobin went from 11.2 to 9.2, likely a combination of blood loss from suction thrombectomy and bleeding from right common femoral vein. Hemoglobin should remain relatively stable now that bleeding has been controlled.
Continue therapeutic anticoagulation. OK to get OOB/ambulate.
--- NOTE | 2023-06-22 09:36 | W.PN.ONC2 ---
Today's Communication / Plan
-
Continue anticoagulation.
Impression
Impression
Acute PE w/ right heart strain
LLE DVT
IgG [place] multiple Myeloma (2014) (currently on Pomalidomide, Daratumumab)
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
Diffuse lytic bone lesions
Hypogammaglobulinemia
Pancytopenia
Neutropenia
Obesity
Plan
Plan
IV Heparin >> transition to Eliquis upon discharge: 10mg BID x7 days followed by 5mg BID
Currently off week of Pomalidomide
Outpatient schedule: Pomalidomide 4mg daily x21 days, 7 days off
Continue prophylactic Acyclovir
Darzalex has been rescheduled to coincide with patient's office follow up.
This is scheduled with Dr. Del Rio on 06/28 @ 0915 in [place].
Subjective/Objective
Chief Complaint
ACS Heme Onc
Subjective
Feeling well. No c/o. On Heparin qtt.
Vital Signs:
Vital Signs
Temp Pulse Resp BP Pulse Ox
99.2 F 96 21 110/68 96
06/22/23 07:35 06/22/23 08:00 06/22/23 08:00 06/22/23 08:00 06/22/23 08:30
Lab Results:
Laboratory Data
WBC 1.1 10^3/uL (4.8-10.8) L* 06/22/23 03:59
Hgb 9.2 g/dL (12.0-16.0) L 06/22/23 03:59
Plt Count 158 10^3/uL (130-400) 06/22/23 03:59
PT 14.0 Sec (11.4-14.6) 06/21/23 18:53
INR 1.10 06/21/23 18:53
APTT 77.5 Sec (23.4-35.0) H 06/22/23 03:59
eGFR > 60.00 06/22/23 03:59
Physical Exam
Cardiology: Normal Sinus Rhythm, S1 and S2
Pulmonary: Clear
GI: Soft
Extremities: Edema (1+ LLE)
--- NOTE | 2023-06-22 10:36 | W.PN.HOSP.TC ---
Today's Communication/Plan
-
Continue heparin
Trend CBC
Monitor blood pressure
Assessment / Plan
Assessment / Plan
Saddle Pulmonary Embolism with Right Heart Strain
LLE DVT
-patient remains hemodynamically stable and without need for oxygen; breathing comfortably
-heparin gtt now with eventual transition to NOAC.
-PERT alert called
-TTE pending
-Status post successful suction embolectomy by [facility] on 06/21. Per IRAD, Majority of the central clot was removed.
-pulm on board
Acute blood loss anemia likely secondary to arteriogram and blood loss from right groin region
-Monitor hemoglobin for now. No acute need for transfusion. Transfuse for hemoglobin less than 7.
Elevated troponin likely secondary to saddle pulmonary embolism and episode of hypotension
-Echocardiogram pending. On heparin drip.
-No chest pain.
Hx Multiple Myeloma
Neutropenia and anemia secondary to chemotherapy
-follows at [facility] Dr. Rasheed - updated by Dr. Stone on PE
-on Daratumumab (next dose would be due tomorrow)
-hold Pomadlidomide given PE (can increase risk) - patient will follow up with Dr. Rasheed at discharge
-Cont prophylactic medication with acyclovir
-onc c/s
Asthma
-TOPOGRAPHICAL ENGINEER montelukast
Essential Hypertension
-hold TOPOGRAPHICAL ENGINEER losartan for now. Avoid hypotension. Blood pressure controlled.
Sinus infection
-patient with sinus pain/drainage x 3 weeks; PCP prescribed Augmentin earlier today, patient has not yet picked it up
-will start Augmentin here
GERD
-TOPOGRAPHICAL ENGINEER pepcid, protonix
DVT PPx heparin gtt
FULL CODE
Anticipated Discharge: > 48 hours
Subjective/Interval History
-
Date of Service: June 22, 2023
Events noted from yesterday
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
Right groin bleeding stopped with manual pressure.
No further bleeding since then
Denies any chest pain or shortness of breath
Stable on on room air
Objective Data
-
Labs:
Laboratory Results
06/22/23 06/22/23
03:59 10:12
WBC 1.1 L*
Hgb 9.2 L
Hct 26.6 L
Plt Count 158
APTT 77.5 H Pending
Sodium 133 L
Potassium 3.6
Chloride 105
Carbon Dioxide 26
BUN 12
Creatinine 0.7
Glucose 95
Calcium 8.0 L
Vital Signs:
Vital Signs
Temp Pulse Resp BP Pulse Ox
99.2 F 96 21 110/68 96
06/22/23 07:35 06/22/23 08:00 06/22/23 08:00 06/22/23 08:00 06/22/23 08:30
I&O
06/21/23 06/22/23 06/23/23
06:59 06:59 06:59
Intake Total 1672 / 1672
Output Total 1150 / 1150
Balance 522 / 522
Physical Exam
-
General: Well Developed and No Apparent Distress
HEENT: Normocephalic, Atraumatic and Moist Mucous Membranes
Respiratory: Clear to Auscultation
Cardiac: Regular Rhythm and S1/S2; Negative Murmur, Rub or Gallop
GI: Soft, Nontender, Nondistended and Normal Bowel Sounds; Negative Organomegaly
Rectal: Deferred by Provider
Musculoskeletal: No Clubbing, No Cyanosis and Edema, Left Lower Extrem
Skin: Negative Rash
Neuro: Awake, AO x 3, No Motor Deficits and Nonfocal/Grossly Intact
Psych: Calm
[2023-06-22 11:09] LABS: APTT 102.7 Sec (23.4-35.0)
--- NOTE | 2023-06-22 11:49 | PTCARENOTE ---
Assumed care of patient this morning. She is aaox3 but very anxious. Patient asked RN to check groin site with every change of position. Site is clean, dry and intact. No bleeding noted. Pt getting up to the BSC this morning and states she feels
weak and needs 'to eat' and has not eaten for a few days. With exertion to the BSC, pt's HR is tachy to the 120s. Otherwise vital signs are stable. Assessment and care as documented.
[2023-06-22] MEDS: TYLENOL 1000 MG PO (15:26)
[2023-06-22] MEDS: NEO-SYNEPHRINE 0.5% NASAL SPRAY 1 SPRAY NASAL (15:28)
--- NOTE | 2023-06-22 16:09 | W.PN.PUL3 ---
Today's Communication / Plan
-
Systemic anticoagulation
Hypercoagulable workup as per hematology
Follow-up echo
Maintain SpO2 >90-94%
Assessment
-
Patient is a 63 year old woman with history of multiple myeloma (followed at [facility] by Dr. Rasheed), asthma who presents to the ER with LLE swelling and shortness of breath. States swelling started a few days ago, with reported increasing warmth and
tenderness, worsening ZAMBRANO.� CTA on arrival showing large saddle PE with mild RHS. We are consulted for eval 06/21/23.
Acute PE/saddle embolus
Mild RHS
ZAMBRANO
LLE DVT
Leukopenia, 1.4
Anemia, Hb 11
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
Multiple myeloma s/p chemo and autologous BMT� �
s/p PORT, managed at [place], Dr Rasheed
Completed 21 days of Pomalidomide/on weekly Daratumumab
She has a R sided PORT
Asthma, cough variant
Follows with Dr Almaraz
FeNO neg, normal PFT 2016, maintained on Flovent
LUE superficial thrombophlebitis from IVs, t/w Eliquis
Allergic rhinitis
HTN
GERD
HLD
TMJ� �
Herniated disc� �
Overweight, BMI 28
Osteopenia� �
Acute pancreatitis
Shingles� - 2018
Squamous cell skin cancer� �
Thyroid cyst� �
Plasmacytoma
Appendectomy� �
LPS cholecystectomy� �
Hysteroscopy D + C� �
Arthroscopy, multiple (bilateral knee)�
Plan
No oxygen was needed on admission, currently saturating 96% on RA
Prior history of lung disease is noted including cough variant asthma, maintained on daily ICS/outpatient records reviewed
Follows with Dr Almaraz
Normal PFTs in past
Acute saddle PE noted on CT- personally reviewed
Discussed options with tPA vs suction thrombectomy, patient agreeable to intervention, does not want tPA
IR performed suction embolectomy on 06/21 with improvement in central embolus burden; patient tolerated procedure well
Continue IV heparin
She has been on Eliquis in past, likely will need lifelong OAC
But can defer to outpatient heme for decision
No prior ECHO noted in past
Obtain echo - pending
Trop neg
MM history, maintained on Chemo as outpatient
Follows at [place]
Will need outpatient pulmonary evaluation in our office for PFTs and 6MWT
Reviewed with patient
Risk factors assessed for underlying sleep disordered breathing also noted, recommend outpatient PSG/sleep evaluation
+snoring
We will follow
Diagnostic Data
CXR 07/21/21- IMPRESSION: 1. � No radiographic evidence for airspace or interstitial disease in the lungs. 2. � Normal heart size without evidence for acute pulmonary edema. 3. � Right IJ chemotherapy Mediport in place.
CT CHEST 06/20/23- IMPRESSION:
1. Positive for pulmonary embolism. Subtle embolus extends into each main pulmonary trunk, embolization extends into the right lower lobe, right upper lobe, and left upper lobe pulmonary arteries. Right ventricle to left ventricle ratio measures 13.
No contrast reflux into the IVC.
2. Right ventricle to left ventricle ratio measures 1.3, suggestive of mild right heart strain.
3. Moderate hiatal hernia.
4. 1 cm right thyroid nodule. Consider dedicated thyroid ultrasound for further characterization.
Duplex 06/20/23- IMPRESSION:� No evidence of deep venous thrombosis of the right lower extremity.
Extensive deep venous thrombosis of the left popliteal and calf veins.
PFT 10/18/16: FEV1 2.85L 106%, FVC 3.46L 101%, ratio 82. TLC 5.84L 118%, DLCO 63%
Subjective Data
-
Date of Service:
Date of Service: June 22, 2023
Chief Complaint: Pulmonary Follow Up
Subjective:
Pt seen this afternoon. at bedside. Currently on room air, saturating 96%. BP 101/59. On heparin drip. No evidence of bleeding.
Review of Systems
General: Other (12 point ROS performed and is negative unless mentioned above.)
Objective Data
Data Reviewed
Vital Signs / I&O / Oxygen:
Vital Signs
Temp Pulse Resp BP Pulse Ox
99.2 F 78 21 95/59 96
06/22/23 11:35 06/22/23 14:00 06/22/23 14:00 06/22/23 14:00 06/22/23 08:30
Intake and Output
06/21/23 06/22/23 06/23/23
06:59 06:59 06:59
Intake Total 1672 / 1672
Output Total 1150 / 1150
Balance 522 / 522
SaO2 96
Physical Exam
General: Comfortable
HEENT: Normocephalic and Anicteric
Cardiovascular: S1-S2 and Peripheral Edema (+1 left LE edema)
Respiratory: Clear, Wheeze (n), Crackles (n) and Rhonchi (n)
GI: Soft, Non Distended and Non Tender
Neurology: Awake and Alert
Skin: Warm and Dry
Labs/Micro/Reports
Lab Data
06/22/23 03:59
06/22/23 03:59
Laboratory Results
06/21/23 06/21/23 06/22/23
18:53 18:53 03:59
PT 14.0
INR 1.10
APTT Cancelled 25.6 77.5 H
06/22/23
10:12
PT
INR
APTT 102.7 H
[2023-06-22] MEDS: SINGULAIR 10 MG PO (22:13)
[2023-06-23] VITALS (26 sets, daily range): BP systolic 71–134; BP diastolic 28–84
[2023-06-23] MEDS: TYLENOL 1000 MG PO ×4 (03:33→23:32)
[2023-06-23] MEDS: HEPARIN 25000 UNITS/250 ML IV (03:44)
[2023-06-23 03:54] LABS: Hematocrit 23.1 % (37.0-47.0); Mean Corp Hgb Conc. 34.6 g/dL (33.0-37.0); Mean Corpuscular Hgb 29.5 pg (27.0-31.0); Mean Corpuscular Volume 85.2 fL (81.0-99.0); Mean Platelet Volume 9.2 fL (7.4-10.4); Platelet Count 162 10^3/uL (130-400); Red Blood Cell Count 2.71 10^6/uL (4.20-5.40); Red Cell Dist. Width 14.6 % (11.5-14.5)
[2023-06-23 03:57] LABS: White Blood Cell Count 1.2 10^3/uL (4.8-10.8)
[2023-06-23 04:07] LABS: APTT 116.3 Sec (23.4-35.0)
[2023-06-23 04:22] LABS: Blood Urea Nitrogen 13 mg/dl (7-17); Calcium 8.1 mg/dl (8.4-10.2); Carbon Dioxide 26 mmol/L (22-30); Chloride 103 mmol/L (98-107); Estimated Creatinine Clearance 72 ml/min; Glucose 101 mg/dl (70-99); Potassium 3.1 mmol/L (3.5-5.1); Sodium 135 mmol/L (135-145); eGFR > 60.00
[2023-06-23] MEDS: AUGMENTIN 875 MG/125 MG 1 TABLET PO ×2 (08:35→21:17)
[2023-06-23] MEDS: CLARITIN 10 MG PO (08:35)
[2023-06-23] MEDS: PEPCID 40 MG PO (08:35)
[2023-06-23] MEDS: ZOVIRAX 400 MG PO ×2 (08:36→21:17)
[2023-06-23] MEDS: PROTONIX 40 MG PO ×2 (08:36→16:47)
[2023-06-23] MEDS: KCL 40 MEQ PO (08:37)
--- NOTE | 2023-06-23 10:32 | W.PN.HOSP.TC ---
Today's Communication/Plan
-
TTE in am
cont hep gtt
trend hgb
Assessment / Plan
Assessment / Plan
Saddle Pulmonary Embolism with Right Heart Strain
LLE DVT
-patient remains hemodynamically stable and without need for oxygen; breathing comfortably
-heparin gtt now with eventual transition to NOAC.
-PERT alert called
-TTE pending
-Status post successful suction embolectomy by [facility] on 06/21. Per IRAD, Majority of the central clot was removed.
-pulm on board
Acute blood loss anemia likely secondary to arteriogram and blood loss from right groin region
-Monitor hemoglobin for now. No acute need for transfusion. Transfuse for hemoglobin less than 7.
Elevated troponin likely secondary to saddle pulmonary embolism and episode of hypotension
-Echocardiogram pending. On heparin drip.
-No chest pain. Trop downtrended.
Hx Multiple Myeloma
Neutropenia and anemia secondary to chemotherapy
-follows at [facility] Dr. Rasheed - updated by Dr. Stone on PE
-on Daratumumab (next dose would be due tomorrow)
-hold Pomadlidomide given PE (can increase risk) - patient will follow up with Dr. Rasheed at discharge
-Cont prophylactic medication with acyclovir
-onc c/s
Asthma
-FIRE BOSS montelukast
Essential Hypertension
-hold FIRE BOSS losartan for now. Avoid hypotension. Blood pressure controlled.
Sinus infection
-patient with sinus pain/drainage x 3 weeks; PCP prescribed Augmentin earlier today, patient has not yet picked it up
-will start Augmentin here
Hypokalemia
-replete
GERD
-FIRE BOSS pepcid, protonix
DVT PPx heparin gtt
FULL CODE
Anticipated Discharge: 24 - 48 hours
Subjective/Interval History
-
Date of Service: June 23, 2023
tolerating diet
denies R groin pain
denies cp or sob.
Objective Data
-
Labs:
Laboratory Results
06/23/23 06/23/23
03:38 13:10
WBC 1.2 L*
Hgb 8.0 L
Hct 23.1 L
Plt Count 162
APTT 116.3 H Pending
Sodium 135
Potassium 3.1 L
Chloride 103
Carbon Dioxide 26
BUN 13
Creatinine 0.8
Glucose 101 H
Calcium 8.1 L
Vital Signs:
Vital Signs
Temp Pulse Resp BP Pulse Ox
100.0 F 93 26 113/76 98
06/23/23 10:26 06/22/23 21:00 06/22/23 21:00 06/22/23 21:00 06/22/23 21:00
I&O
06/22/23 06/23/23 06/24/23
06:59 06:59 06:59
Intake Total 1672 / 1672 1392 / 1392
Output Total 1150 / 1150
Balance 522 / 522 1392 / 1392
Physical Exam
-
General: Well Developed and No Apparent Distress
HEENT: Normocephalic, Atraumatic and Moist Mucous Membranes
Respiratory: Clear to Auscultation
Cardiac: Regular Rhythm and S1/S2; Negative Murmur, Rub or Gallop
GI: Soft, Nontender, Nondistended and Normal Bowel Sounds; Negative Organomegaly
Rectal: Deferred by Provider
Musculoskeletal: No Clubbing, No Cyanosis and Edema, Left Lower Extrem
Skin: Negative Rash
Neuro: Awake, AO x 3, No Motor Deficits and Nonfocal/Grossly Intact
Psych: Calm
[2023-06-23] MEDS: KCL 20 MEQ PO (12:14)
[2023-06-23] MEDS: IMODIUM 2 MG PO (12:28)
[2023-06-23 14:03] LABS: APTT 117.6 Sec (23.4-35.0)
--- NOTE | 2023-06-23 15:02 | PTCARENOTE ---
Addendum entered by Patt Machado RN 06/23/23 17:41:
Patient has had low grade fever today 100. Dr. Shaun Woodall notified, tylenol administered.
Original Note:
Patient out of bed to commode multiple times today, having multiple loose stools brown in color. Immodium administered. Heparin drip continues, PTT not therapeuic, protocol followed for tiitration. Right groin with hematoma s/p embolectomy. Dressing
intact. Patient on room air,96%. Eating majority of meals. In good spirits with at bedside.
--- NOTE | 2023-06-23 15:38 | W.PN.PUL3 ---
Addendum entered and electronically signed by Zeus Grande MD 06/23/23 16:19:
Check walking pulse ox prior to discharge
Original Note:
Today's Communication / Plan
-
Systemic anticoagulation
Hypercoagulable workup as per hematology
Follow-up echo (pending for tomorrow)
Maintain SpO2 >90-94%
Assessment
-
Patient is a 63 year old woman with history of multiple myeloma (followed at [facility] by Dr. Rasheed), asthma who presents to the ER with LLE swelling and shortness of breath. States swelling started a few days ago, with reported increasing warmth and
tenderness, worsening ZAMBRANO.� CTA on arrival showing large saddle PE with mild RHS. We are consulted for eval 06/21/23.
Acute PE/saddle embolus
Mild RHS with elevated troponin (peaked at 0.901)
ZAMBRANO
LLE DVT
Leukopenia, 1.4
Anemia, Hb 11
Acute bacterial rhinosinusitis
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
Multiple myeloma s/p chemo and autologous BMT� �
s/p PORT, managed at [facility], Dr Rasheed
Completed 21 days of Pomalidomide/on weekly Daratumumab
She has a R sided PORT
Asthma, cough variant
Follows with Dr Almaraz
FeNO neg, normal PFT 2016, maintained on Flovent
LUE superficial thrombophlebitis from IVs, t/w Eliquis
Allergic rhinitis
HTN
GERD
HLD
TMJ� �
Herniated disc� �
Overweight, BMI 28
Osteopenia� �
Acute pancreatitis
Shingles� - 2018
Squamous cell skin cancer� �
Thyroid cyst� �
Plasmacytoma
Appendectomy� �
LPS cholecystectomy� �
Hysteroscopy D + C� �
Arthroscopy, multiple (bilateral knee)�
Plan
No oxygen was needed on admission, currently saturating 96% on RA
Prior history of lung disease is noted including cough variant asthma, maintained on daily ICS/outpatient records reviewed
Follows with Dr Almaraz
Normal PFTs in past
Continue augmentin x 5-7 days
Acute saddle PE noted on CT- personally reviewed
Discussed options with tPA vs suction thrombectomy, patient agreeable to intervention, does not want tPA
IR performed suction embolectomy on 06/21 with improvement in central embolus burden; patient tolerated procedure well
Continue IV heparin
She has been on Eliquis in past, likely will need lifelong OAC
But can defer to outpatient heme for decision
No prior ECHO noted in past
Obtain echo - pending for tomorrow
Trop peaked at 0.901 on 06/21/2023
MM history, maintained on Chemo as outpatient
Follows at [facility]
Will need outpatient pulmonary evaluation in our office for PFTs and 6MWT
Reviewed with patient
Risk factors assessed for underlying sleep disordered breathing also noted, recommend outpatient PSG/sleep evaluation
+snoring
We will follow
Diagnostic Data
CXR 07/21/21- IMPRESSION: 1. � No radiographic evidence for airspace or interstitial disease in the lungs. 2. � Normal heart size without evidence for acute pulmonary edema. 3. � Right IJ chemotherapy Mediport in place.
CT CHEST 06/20/23- IMPRESSION:
1. Positive for pulmonary embolism. Subtle embolus extends into each main pulmonary trunk, embolization extends into the right lower lobe, right upper lobe, and left upper lobe pulmonary arteries. Right ventricle to left ventricle ratio measures 13.
No contrast reflux into the IVC.
2. Right ventricle to left ventricle ratio measures 1.3, suggestive of mild right heart strain.
3. Moderate hiatal hernia.
4. 1 cm right thyroid nodule. Consider dedicated thyroid ultrasound for further characterization.
Duplex 06/20/23- IMPRESSION:� No evidence of deep venous thrombosis of the right lower extremity.
Extensive deep venous thrombosis of the left popliteal and calf veins.
PFT 10/18/16: FEV1 2.85L 106%, FVC 3.46L 101%, ratio 82. TLC 5.84L 118%, DLCO 63%
Subjective Data
-
Date of Service:
Date of Service: June 23, 2023
Chief Complaint: Pulmonary Follow Up
Subjective:
Patient seen this afternoon. Remains on heparin drip. Says she feels short of breath with activity. Has some sinus discharge/congestion, not worse than yesterday. Denies chest pain, headache, fevers or chills.
Review of Systems
General: Other (12 point ROS performed and is negative unless mentioned above.)
Objective Data
Data Reviewed
Vital Signs / I&O / Oxygen:
Vital Signs
Temp Pulse Resp BP Pulse Ox
100.0 F 89 19 107/71 96
06/23/23 15:39 06/23/23 15:00 06/23/23 15:00 06/23/23 15:00 06/23/23 15:00
Intake and Output
06/22/23 06/23/23 06/24/23
06:59 06:59 06:59
Intake Total 1672 / 1672 1392 / 1392 240 / 240
Output Total 1150 / 1150
Balance 522 / 522 1392 / 1392 240 / 240
SaO2 96
Physical Exam
General: Comfortable
HEENT: Normocephalic and Anicteric
Cardiovascular: S1-S2 and Peripheral Edema (+1 left LE edema)
Respiratory: Clear, Wheeze (n), Crackles (n) and Rhonchi (n)
GI: Soft, Non Distended and Non Tender
Neurology: Awake and Alert
Skin: Warm and Dry
Labs/Micro/Reports
Lab Data
06/23/23 03:38
06/23/23 03:38
Laboratory Results
06/23/23 06/23/23
03:38 13:17
APTT 116.3 H 117.6 H
[2023-06-23] MEDS: SINGULAIR 10 MG PO (21:17)
[2023-06-23] MEDS: NEO-SYNEPHRINE 0.5% NASAL SPRAY 1 SPRAY NASAL (21:18)
[2023-06-23 22:02] LABS: APTT 76.4 Sec (23.4-35.0)
--- NOTE | 2023-06-23 23:40 | PTCARENOTE ---
Pt with occasional nonproductive cough. nsr on monitor. pox 98%on RA. denies sob. Pt states 'I feel like I have the shakes, I have a slight temp.' Temp 100.1 orally. Medicated with prn tylenol. Reached out to Stacy HARDING, advised to check
accucheck,no additional orders at this time. Pt aware. accucheck 96.
[2023-06-23 23:56] LABS: Glucose - Point of Care 96 mg/dl (70-99)
[2023-06-24] VITALS (31 sets, daily range): BP systolic 93–126; BP diastolic 51–86
[2023-06-24 05:18] LABS: Hematocrit 23.2 % (37.0-47.0); Mean Corp Hgb Conc. 34.5 g/dL (33.0-37.0); Mean Corpuscular Volume 86.9 fL (81.0-99.0); Mean Platelet Volume 8.8 fL (7.4-10.4); Platelet Count 190 10^3/uL (130-400); Red Blood Cell Count 2.67 10^6/uL (4.20-5.40); Red Cell Dist. Width 14.7 % (11.5-14.5)
[2023-06-24] MEDS: ATIVAN 0.5 MG PO ×4 (05:22→23:09)
--- NOTE | 2023-06-24 05:32 | PTCARENOTE ---
Pt tremulous, states 'I feel very shaky, I try to calm myself down and it works for a few minutes and they come back. I had something similar when my kids were younger but I didn't take anything for it.' Spoke with Stacy HARDING, maikol po ordered
and lactic ordered to be drawn now. Pt updated and agreeable.
[2023-06-24 05:46] LABS: Blood Urea Nitrogen 12 mg/dl (7-17); Calcium 8.4 mg/dl (8.4-10.2); Carbon Dioxide 23 mmol/L (22-30); Chloride 106 mmol/L (98-107); Estimated Creatinine Clearance 83 ml/min; Glucose 95 mg/dl (70-99); Potassium 3.5 mmol/L (3.5-5.1); Sodium 136 mmol/L (135-145); eGFR > 60.00
[2023-06-24 06:01] LABS: White Blood Cell Count 1.6 10^3/uL (4.8-10.8)
[2023-06-24] MEDS: HEPARIN 6000 UNITS IV (06:18)
[2023-06-24 07:41] LABS: Lactic Acid 0.8 mmol/L (0.7-2.0)
--- NOTE | 2023-06-24 08:04 | W.PN.HOSP.TC ---
Today's Communication/Plan
-
Transfuse
CT scan
Lorazepam as needed
Monitor hemoglobin
Assessment / Plan
Assessment / Plan
Gen-AAOx3, NAD
HEENT-NC, AT, anicteric, clear oral mm
Neck-supple
CV-reg, no M, +S1/S2
Lungs-clear B/L
Abd-soft, NT, ND
Ext-no edema
Musculoskeletal-no cyanosis, clubbing
Skin-warm and dry
Neuro-grossly non-focal
Psych-calm, cooperative
Acute saddle Pulmonary Embolism with Right Heart Strain
Acute LLE DVT - Status post successful suction embolectomy by [facility] on 06/21. Per [facility], Majority of the central clot was removed.
Not requiring oxygen.
Very tachycardic this morning and I suspect related to acute drop in hemoglobin, anxiety, etc.
Acute blood loss anemia - likely secondary to arteriogram and blood loss from right groin region. Rule out retroperitoneal bleed. Check CT scan now. If large retroperitoneal hematoma may have to stop IV heparin. Consider IVC filter. Hemoglobin
8.0 again today but given the rapid drop in hemoglobin as well as tachycardia and symptoms I will transfuse her 1 unit of blood now, leukoreduced.
Elevated troponin - likely secondary to saddle pulmonary embolism and episode of hypotension
-Echocardiogram pending. On heparin drip.
-No chest pain. Trop downtrended.
Hx Multiple Myeloma
Neutropenia and anemia secondary to chemotherapy
-follows at [facility] Dr. Rasheed - updated by Dr. Stone on PE
-on Daratumumab (next dose would be due tomorrow)
-hold Pomadlidomide given PE (can increase risk) - patient will follow up with Dr. Rasheed at discharge
-Cont prophylactic medication with acyclovir
-onc c/s
Asthma, cough variant
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
Essential Hypertension
-hold HANDKERCHIEF PRESSER losartan for now. Avoid hypotension. Blood pressure controlled.
Acute sinusitis -continue Augmentin.
-patient with sinus pain/drainage x 3 weeks; PCP prescribed Augmentin earlier today, patient has not yet picked it up
Hypokalemia -improving.
Severe anxiety -related to acute illness, hospitalization. She denies history of anxiety. She is requesting as needed lorazepam.
GERD
-HANDKERCHIEF PRESSER pepcid, protonix
DVT PPx heparin gtt
FULL CODE
Anticipated Discharge: 24 - 48 hours
Subjective/Interval History
-
Date of Service: June 24, 2023
Patient seen and examined. Complaining of anxiety, tremors. Also complaining of tachycardia.
Objective Data
-
Labs:
Laboratory Results
06/23/23 06/24/23 06/24/23
21:08 04:59 12:20
WBC 1.6 L*
Hgb 8.0 L
Hct 23.2 L
Plt Count 190
APTT 76.4 H 63.0 H Pending
Sodium 136
Potassium 3.5
Chloride 106
Carbon Dioxide 23
BUN 12
Creatinine 0.7
Glucose 95
Calcium 8.4
Vital Signs:
Vital Signs
Temp Pulse Resp BP Pulse Ox
98.2 F 64 17 107/65 95
06/24/23 03:21 06/24/23 03:00 06/24/23 03:00 06/24/23 03:00 06/24/23 03:00
I&O
06/23/23 06/24/23 06/25/23
06:59 06:59 06:59
Intake Total 1392 / 1392 240 / 240
Balance 1392 / 1392 240 / 240
Review of Systems
-
History Source: Patient
All other systems: Reviewed and negative
--- NOTE | 2023-06-24 08:07 | W.PN.PUL3 ---
Today's Communication / Plan
-
AC
Assessment
-
Patient is a 63 year old woman with history of multiple myeloma (followed at [facility] by Dr. Rasheed), asthma who presents to the ER with LLE swelling and shortness of breath. States swelling started a few days ago, with reported increasing warmth and
tenderness, worsening ZAMBRANO.� CTA on arrival showing large saddle PE with mild RHS. We are consulted for eval 06/21/23.
Acute PE/saddle embolus
Mild RHS with elevated troponin (peaked at 0.901)
LLE DVT
Leukopenia, 1.4
Anemia, Hb 11
Acute bacterial rhinosinusitis
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
Multiple myeloma s/p chemo and autologous BMT� �
s/p R chest PORT, managed at [place], Dr Rasheed
Completed 21 days of Pomalidomide/on weekly Daratumumab
Asthma, cough variant
Follows with Dr Almaraz
FeNO neg, normal PFT 2016, maintained on Flovent
LUE superficial thrombophlebitis from IVs, t/w Eliquis
Allergic rhinitis
HTN
GERD
HLD
TMJ� �
Herniated disc� �
Overweight, BMI 28
Osteopenia� �
Acute pancreatitis
Shingles� - 2018
Squamous cell skin cancer� �
Thyroid cyst� �
Plasmacytoma
Appendectomy� �
LPS cholecystectomy� �
Hysteroscopy D + C� �
Arthroscopy, multiple (bilateral knee)�
Plan
No oxygen was needed on admission, currently saturating 99% on RA at rest
Prior history of lung disease is noted including cough variant asthma, maintained on daily ICS/outpatient records reviewed
Follows with Dr Almaraz
Normal PFTs in past
Continue augmentin x 5-7 days
Acute saddle PE noted on CT
Discussed options with tPA vs suction thrombectomy, patient agreeable to intervention, did not want tPA
IR performed suction embolectomy on 06/21 with improvement in central embolus burden; patient tolerated procedure well
On IV heparin
She has been on Eliquis in past, likely will need lifelong OAC
As rec by Onc, can transition to apixaban prior to d/c
CT abd/p 06-24 showed no evidence of retroperitoneal hematomy
No prior ECHO noted in past
TTE pending
Trop peaked at 0.901 on 06/21/2023
MM history, maintained on Chemo as outpatient
Follows at [place]
Will need outpatient pulmonary evaluation in our office for PFTs and 6MWT
Reviewed with patient
Risk factors assessed for underlying sleep disordered breathing also noted, recommend outpatient PSG/sleep evaluation
+snoring
D/w Mrs Mar
Diagnostic Data
CXR 07/21/21- IMPRESSION: 1. � No radiographic evidence for airspace or interstitial disease in the lungs. 2. � Normal heart size without evidence for acute pulmonary edema. 3. � Right IJ chemotherapy Mediport in place.
CT CHEST 06/20/23- IMPRESSION:
1. Positive for pulmonary embolism. Subtle embolus extends into each main pulmonary trunk, embolization extends into the right lower lobe, right upper lobe, and left upper lobe pulmonary arteries. Right ventricle to left ventricle ratio measures 13.
No contrast reflux into the IVC.
2. Right ventricle to left ventricle ratio measures 1.3, suggestive of mild right heart strain.
3. Moderate hiatal hernia.
4. 1 cm right thyroid nodule. Consider dedicated thyroid ultrasound for further characterization.
Duplex 06/20/23- IMPRESSION:� No evidence of deep venous thrombosis of the right lower extremity.
Extensive deep venous thrombosis of the left popliteal and calf veins.
PFT 10/18/16: FEV1 2.85L 106%, FVC 3.46L 101%, ratio 82. TLC 5.84L 118%, DLCO 63%
Subjective Data
-
Date of Service:
Date of Service: June 24, 2023
Chief Complaint: Pulmonary Follow Up
Subjective:
No major events reported overnight
Continues on IV heparin
Currently on room air with saturation 99%
Review of Systems
General: Fever (n), Sweats (n), Chills and Satisfactory Appetite
HEENT: Epistaxis (n) and Dysphagia (n)
Cardiopulmonary: Dyspnea, Cough (n), Chest Pain and Hemoptysis
GI: Abdominal Pain, Nausea (n) and Vomiting
Neuro: Weakness
Objective Data
Data Reviewed
Vital Signs / I&O / Oxygen:
Vital Signs
Temp Pulse Resp BP Pulse Ox
98.2 F 64 17 107/65 95
06/24/23 03:21 06/24/23 03:00 06/24/23 03:00 06/24/23 03:00 06/24/23 03:00
Intake and Output
06/23/23 06/24/23 06/25/23
06:59 06:59 06:59
Intake Total 1392 / 1392 240 / 240
Balance 1392 / 1392 240 / 240
SaO2 95
Physical Exam
General: Comfortable
HEENT: Normocephalic and Anicteric
Cardiovascular: S1-S2, Regular Rhythm, Peripheral Edema (+1 left LE edema) and Other (R chest port-A-cath)
Respiratory: Clear, Wheeze (n), Crackles (n), Rhonchi (n), Non-Labored Respirations and Stridor
GI: Soft, Non Distended and Non Tender
Neurology: Awake, AO x 3 and No Motor Deficits
Skin: Warm and Dry
Labs/Micro/Reports
Lab Data
06/24/23 04:59
06/24/23 04:59
Laboratory Results
06/23/23 06/23/23 06/24/23
13:17 21:08 04:59
APTT 117.6 H 76.4 H 63.0 H
[2023-06-24] MEDS: HEPARIN 25000 UNITS/250 ML IV ×2 (08:22→14:02)
[2023-06-24 08:47] LABS: Band Neutrophils 2 % (0-3); Lymphocytes 51 % (20-51); Monocytes 24 % (2-9); Nucleated Red Blood Cells % 0 %; Segmented Neutrophils 21 % (42-75)
[2023-06-24 08:48] LABS: Normal RBC Morphology No; Platelets Checked Yes
[2023-06-24 08:49] LABS: Absolute Neutrophils -Man Diff 0.3 10^3/uL (1.4-6.5); Anisocytosis 1+
[2023-06-24 08:50] LABS: Macrocytosis Slight; Ovalocytes 1+; Polychromasia Slight
[2023-06-24 08:51] LABS: Total Cells Counted 100
[2023-06-24] MEDS: AUGMENTIN 875 MG/125 MG 1 TABLET PO ×2 (09:28→20:54)
[2023-06-24] MEDS: PEPCID 40 MG PO (09:29)
[2023-06-24] MEDS: ZOVIRAX 400 MG PO ×2 (09:29→20:54)
[2023-06-24] MEDS: PROTONIX 40 MG PO ×2 (09:29→17:07)
[2023-06-24] MEDS: CLARITIN 10 MG PO (09:29)
[2023-06-24] MEDS: PERCOCET 5/325 1 TABLET PO ×2 (12:11→20:56)
[2023-06-24 12:58] LABS: APTT 169.9 Sec (23.4-35.0)
--- NOTE | 2023-06-24 15:27 | PTCARENOTE ---
Patient with shaking this morning, had low grade temperature yesterday. Hematoma on right groin shown to Dr. Camargo, ct scan completed. Hgb 8 today for transfusion once paperwork competed by MD. Patient complaining of back pain, relieved with
Percocet. Anxiety treated with PO Ativan .5mg. Patient calm at comfortable at this time with at bedside. Heparin continues per protocol.
--- NOTE | 2023-06-24 16:52 | W.PN.ONC2 ---
Today's Communication / Plan
-
- 1 unit pRBC ordered for drop in hgb s/p bleed post thrombectomy. Bekah interaction noted and reviewed with blood bank.
- continue heparin gtt for now with close CBC monitoring. transition to DOAC once no concerns for ongoing bleed.
Impression
Impression
Acute PE w/ right heart strain
LLE DVT
IgG [place] multiple Myeloma (2014) (currently on Pomalidomide, Daratumumab)
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
Diffuse lytic bone lesions
Hypogammaglobulinemia
Pancytopenia
Neutropenia
Obesity
Plan
Plan
s/p thrombectomy.
pt developed bleed at vascular access site in right groin, only small hematoma on CT scan. heparin gtt resumed. pRBCs ordered due to drop in hgb to 8.0 g/dl. Due to daratumumab T+S testing interference noted, sample sent to [facility] for DTT testing
and no trule allo or auto antibodies present. Plan to transfuse khushi negative products per protocol. Discussed with blood bank.
Monitor CBC closely to ensure hgb stable/improving and no ongoing bleeding concerns.
IV Heparin >> transition to Eliquis upon discharge: 10mg BID x7 days followed by 5mg BID
Currently off week of Pomalidomide
Outpatient schedule: Pomalidomide 4mg daily x21 days, 7 days off
Continue prophylactic Acyclovir
This is scheduled with Dr. Del Rio on 06/28 @ [id number] in [place].
Subjective/Objective
Chief Complaint
VTE c/b bleeding, hematoma. Multiple myeloma
Subjective
pt developed bleeding at right groin access site s/p thrombectomy with drop in hgb to 8.0 g/dl. heparin gtt was temporarily held. CT showed a small hematoma at site. It again noted sacral plasmacytoma which was present on outside MRI in May and
Skeletal survey 06/08/23. LLE pain and swelling improved per pt.
Vital Signs:
Vital Signs
Temp Pulse Resp BP Pulse Ox
100.5 F H 93 23 118/61 91
06/24/23 16:37 06/24/23 16:37 06/24/23 16:37 06/24/23 16:37 06/24/23 13:00
Lab Results:
Laboratory Data
WBC 1.6 10^3/uL (4.8-10.8) L* 06/24/23 04:59
Hgb 8.0 g/dL (12.0-16.0) L 06/24/23 04:59
Plt Count 190 10^3/uL (130-400) 06/24/23 04:59
PT 14.0 Sec (11.4-14.6) 06/21/23 18:53
INR 1.10 06/21/23 18:53
APTT 169.9 Sec (23.4-35.0) H* 06/24/23 12:27
eGFR > 60.00 06/24/23 04:59
Physical Exam
Cardiology: Normal Sinus Rhythm
Pulmonary: Clear
GI: Soft
Extremities: Edema (LLE edema extending to thigh with increased warmth, no erythema ) and Other (ecchymosis involing right groin, lower abdomen)
Neuro: Non Focal
Review of Systems
Review of Systems
Constitutional: Denies Fever
Respiratory: Reports Dyspnea
Cardiovascular: Denies Chest Pain
Neurological: Denies Headache
Hem/Lymphatic: Denies Easy Bruising
[2023-06-24] MEDS: TYLENOL 1000 MG PO (17:07)
--- NOTE | 2023-06-24 17:40 | PTCARENOTE ---
Addendum entered by Patt Machado RN 06/24/23 17:58:
Dr. Camargo notified of temperature 100.5.
Original Note:
Patient had temperature 100.5 prior to blood transfusion. Tylenol administered and blood culture, covid test completed. Patient is tolerating blood transfusion without reaction at this time.
[2023-06-24 17:59] LABS: COVID-19 Antigen Negative (Negative)
--- NOTE | 2023-06-24 20:30 | PTCARENOTE ---
Received pt at change of shift. Dressing on right groin intact. No signs of active bleeding. bruising extends from right lateral hip over pelvis to left groin. No tenderness on palpation. Pt c/o back pain. Administered PRN pain medication (see
JUL). Heparin gtt rebolused and increased per protocol.
[2023-06-24 20:37] LABS: APTT 64.5 Sec (23.4-35.0)
[2023-06-24] MEDS: SINGULAIR 10 MG PO (20:54)
[2023-06-24] MEDS: NEO-SYNEPHRINE 0.5% NASAL SPRAY 1 SPRAY NASAL (20:55)
[2023-06-24] MEDS: HEPARIN 3000 UNITS IV (21:01)
[2023-06-25] VITALS (37 sets, daily range): BP systolic 77–134; BP diastolic 45–81; PULSE 85; O2SAT 98
[2023-06-25] MEDS: NSS 500 IV (01:30)
[2023-06-25 03:04] LABS: APTT 122.6 Sec (23.4-35.0)
[2023-06-25 03:14] LABS: Hematocrit 24.3 % (37.0-47.0); Hemoglobin 8.5 g/dL (12.0-16.0); Mean Corpuscular Hgb 29.3 pg (27.0-31.0); Mean Corpuscular Volume 83.8 fL (81.0-99.0); Mean Platelet Volume 8.8 fL (7.4-10.4); Platelet Count 211 10^3/uL (130-400)
[2023-06-25] MEDS: TYLENOL 1000 MG PO ×2 (03:15→22:55)
[2023-06-25 03:16] LABS: White Blood Cell Count 1.8 10^3/uL (4.8-10.8)
[2023-06-25 03:18] LABS: ALT (SGPT) 33 U/L (0-35); AST (SGOT) 22 U/L (14-36); Albumin 2.6 g/dl (3.5-5.0); Alkaline Phosphatase 115 U/L (38-126); Blood Urea Nitrogen 10 mg/dl (7-17); Calcium 7.8 mg/dl (8.4-10.2); Carbon Dioxide 22 mmol/L (22-30); Chloride 106 mmol/L (98-107); Estimated Creatinine Clearance 83 ml/min; Glucose 91 mg/dl (70-99); Potassium 3.2 mmol/L (3.5-5.1); Sodium 133 mmol/L (135-145); Total Bilirubin 1.2 mg/dl (0.2-1.3); eGFR > 60.00
--- NOTE | 2023-06-25 04:24 | PTCARENOTE ---
Pt BP starting to drop into the 80s/50s. Notified GENERAL INTERNIST AND PHYSICIAN LEADER. 500ml nss bolus ordered and then GENERAL INTERNIST AND PHYSICIAN LEADER ordered NSS 150 ml/hr. Monitoring BP. If BP remains low with the increased fluids GENERAL INTERNIST AND PHYSICIAN LEADER has ordered levophed for SBP >90. Resting comfortably in bed
with call preciado in reach.
[2023-06-25 04:26] LABS: Magnesium 1.7 mg/dl (1.6-2.3)
[2023-06-25] MEDS: LEVOPHED 250 IV (04:37)
[2023-06-25] MEDS: KCL 40 MEQ PO (04:37)
[2023-06-25] MEDS: NSS 1000 IV ×3 (04:37→19:30)
[2023-06-25 04:47] LABS: Normal RBC Morphology No; Ovalocytes 1+; Platelets Checked Yes; Total Cells Counted 100
[2023-06-25 04:49] LABS: Band Neutrophils 2 % (0-3); Lymphocytes 46 % (20-51); Monocytes 28 % (2-9); Segmented Neutrophils 24 % (42-75)
[2023-06-25 04:50] LABS: Absolute Neutrophils -Man Diff 0.4 10^3/uL (1.4-6.5)
[2023-06-25 04:51] LABS: Anisocytosis 1+; Hypochromasia OCC; Tear Drop Red Blood Cells Occasional
--- NOTE | 2023-06-25 04:55 | PTCARENOTE ---
Levophed started at 2 mcg/min. Monitoring pt BP closely. Pt resting comfortably in bed offering no complaints.
--- NOTE | 2023-06-25 05:14 | W.PN.UPDATE ---
Update Note
Progress Note Update
Patient noted with persistent sbp <100. NS IVF bolus given. Second NS IVF at 150 started as well as low dose levophed.
--- NOTE | 2023-06-25 07:49 | W.PN.HOSP.TC ---
Today's Communication/Plan
-
Wean down Levophed
Continue antibiotics
Await cultures
PT
Assessment / Plan
Assessment / Plan
Gen-AAOx3, NAD
HEENT-NC, AT, anicteric, clear oral mm
Neck-supple
CV-reg, no M, +S1/S2
Lungs-clear B/L
Abd-soft, NT, ND
Ext-no edema
Musculoskeletal-no cyanosis, clubbing
Skin-warm and dry
Neuro-grossly non-focal
Psych-calm, cooperative
Shock -differential diagnosis includes bilateral pulm emboli versus septic versus other. On very low-dose Levophed 1 mcg currently. Wean to off. Blood pressure improved. Received IV fluid bolus. Not tachycardic.
Neutropenic fever -blood cultures pending. Empiric cefepime and vancomycin started. Fever could also be due to pulmonary embolism. Does not look toxic. Absolute neutrophil count 400.
Acute saddle Pulmonary Embolism with Right Heart Strain
Acute LLE DVT - Status post successful suction embolectomy by [facility] on 06/21. Per [facility], Majority of the central clot was removed.
Not requiring oxygen.
Echocardiogram shows a 55 to 60%, no significant valvular disease.
Acute blood loss anemia - likely secondary to arteriogram and blood loss from right groin region. CT done, no evidence of retroperitoneal bleed. Hemoglobin improved to 8.5 today after 1 unit of transfusion on 06/24.
Non-CO troponin elevation- likely secondary to saddle pulmonary embolism and episode of hypotension
Hx Multiple Myeloma
Neutropenia and anemia secondary to chemotherapy
-follows at [facility] Dr. Rasheed - updated by Dr. Stone on PE
-on Daratumumab (next dose would be due tomorrow)
-hold Pomadlidomide given PE (can increase risk) - patient will follow up with Dr. Rasheed at discharge
-Cont prophylactic medication with acyclovir
-Oncology following.
Asthma, cough variant
-SENIOR BUSINESS ANALYST montelukast
Essential Hypertension
-hold SENIOR BUSINESS ANALYST losartan for now. Avoid hypotension. Blood pressure controlled.
Acute sinusitis -has been on Augmentin up until now, discontinued due to initiation of cefepime and vancomycin.
-patient with sinus pain/drainage x 3 weeks; PCP prescribed Augmentin earlier today, patient has not yet picked it up
Hypokalemia -replete orally. Magnesium normal.
Severe anxiety -related to acute illness, hospitalization. She denies history of anxiety. She is requesting as needed lorazepam.
GERD
-SENIOR BUSINESS ANALYST pepcid, protonix
DVT PPx heparin gtt
FULL CODE
PT
Anticipated Discharge: 24 - 48 hours
Subjective/Interval History
-
Date of Service: June 25, 2023
Patient seen and examined. Overall feeling better, mild dyspnea on exertion.
Objective Data
-
Labs:
Laboratory Results
06/24/23 06/25/23 06/25/23
20:16 02:33 09:15
WBC 1.8 L*
Hgb 8.5 L
Hct 24.3 L
Plt Count 211
APTT 64.5 H 122.6 H Pending
Sodium 133 L
Potassium 3.2 L
Chloride 106
Carbon Dioxide 22
BUN 10
Creatinine 0.7
Glucose 91
Calcium 7.8 L
Total Bilirubin 1.2
AST 22
ALT 33
Alkaline Phosphatase 115
Vital Signs:
Vital Signs
Temp Pulse Resp BP Pulse Ox
98.3 F 72 17 108/67 93
06/25/23 07:44 06/25/23 05:00 06/25/23 05:00 06/25/23 05:00 06/25/23 05:00
I&O
06/24/23 06/25/23 06/26/23
06:59 06:59 06:59
Intake Total 240 / 240 2395 / 2395
Output Total 760 / 760
Balance 240 / 240 1635 / 1635
Review of Systems
-
History Source: Patient
All other systems: Reviewed and negative
--- NOTE | 2023-06-25 07:55 | PHA.VAN.IN ---
Assessment
- Assessment
Renal Function: Appears similar to baseline
Concomitant Antimicrobials: cefepime
AUC Dosing Plan
- Dosing Variables
Dosing Weight (kg): 75
Dosing CrCl (ml/min): 83
Vd coefficient (L/kg): 0.7
- Empiric Dosing
Initial / Loading Dose: 1500mg - administration pending
Maintenance Regimen: Vanc 1000mg Q12H starting at 1800
Estimated AUC (mcg*h/mL): 539
Estimated Peak (mcg*h/mL): 32.6
Estimated Trough (mcg/ml): 14.5
Estimated Half Life (H): 9.5
- Monitoring
No levels ordered at this time: consider levels in next few days
MRSA Screen: Ordered per protocol
Pharmacokinetics Vancomycin I
- -
Patient Age: 63
Patient Sex: Female
Vancomycin Day #: 1
Indication: Neutropenic Fever
Requesting Provider: Dr. Camargo
Pertinent Antimicrobial Allergies:
NKDA
Height / Weight:
Height 5 ft 4 in
Actual Weight 74.9 kg
Pertinent Past Medical History: Multiple Myeloma
- Vital Signs / Lab Results
Temp Pulse Resp BP Pulse Ox
98.3 F 72 17 108/67 93
06/25/23 07:44 06/25/23 05:00 06/25/23 05:00 06/25/23 05:00 06/25/23 05:00
Lab Results - Hematology
06/22/23 06/23/23 06/24/23
03:59 03:38 04:59
WBC 1.2 L* 1.6 L*
Band Neutrophils 0 2
06/25/23
02:33
WBC 1.8 L*
Band Neutrophils 2
Lab Results - Chemistry
06/23/23 06/24/23 06/25/23
03:38 04:59 02:33
BUN 13 12 10
Creatinine 0.8 0.7 0.7
Estimated Creat Clear 72 83 83
Albumin 2.6 L
06/24/23
05:18
Lactic Acid 0.8
[2023-06-25] MEDS: PROTONIX 40 MG PO ×2 (08:30→17:21)
[2023-06-25] MEDS: PEPCID 40 MG PO (08:31)
[2023-06-25] MEDS: CLARITIN 10 MG PO (08:31)
[2023-06-25] MEDS: ZOVIRAX 400 MG PO ×2 (08:31→19:30)
[2023-06-25] MEDS: MAXIPIME 2000 MG IV ×2 (08:32→17:24)
[2023-06-25] MEDS: STERILE WATER FOR INJECTION 10 ML IV ×2 (08:33→17:24)
[2023-06-25] MEDS: IMODIUM 2 MG PO ×2 (08:48→12:49)
[2023-06-25] MEDS: VANCOCIN 300 MG IV (08:48)
[2023-06-25] MEDS: VANCOCIN 300 ML IV (08:48)
--- NOTE | 2023-06-25 09:57 | CHAP ---
Fr. London Marshall of [facility] in [place] blessed Tena Camacho at her request. Time uncertain.
--- NOTE | 2023-06-25 10:08 | W.PN.ONC ---
Addendum entered and electronically signed by Raine Morelos MD 06/25/23 16:13:
agree w/ A&P as below
mgmt of neutropenic fever w/ abx, cultures pending
pomalyst on hold
heparin; transition to DOAC when able
outpatient f/u with Dr. Del Rio
Original Note:
Today's Communication / Plan
-
Neutropenic precautions: ANC 400
Empiric antibiotics, cultures in progress
04/24 Hgb 8.5 s/p 1unit pRBCs
Transfuse as needed to maintain Hgb >7
Monitor groin access site
CBC w/ diff daily
Due to Daratumumab T+S testing interference noted, sample sent to [facility] for DTT testing and no trule allo or auto antibodies present. Plan to transfuse khushi negative products per protocol. Dr Luna discussed with blood bank yesterday, 06/24
Monitor diarrhea with recent antibiotic use (Augmentin)
Continue to hold Pomalidamide
Continue Heparin gtt with transition to Eliquis 10mg BID x7 days followed by 5mg BID
Follow up with Dr. Del Rio will be adjusted accordingly based on discharge from hospital. Office has been updated.
Follow up with Dr. Rasheed at [place] as scheduled.
Impression
Impression
Acute PE w/ right heart strain s/p thrombectomy
LLE DVT
IgG [place] multiple Myeloma (dx 2014) (currently on Pomalidomide, Daratumumab)
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
Diffuse lytic bone lesions
Hypogammaglobulinemia
Neutropenia
Fever
Right groin hematoma at vascular access site
Acute diarrhea
Subjective/Objective
Subjective/Objective
Patient OOB to the chair. She states she is doing better this morning. Denies acute pain. She notes diarrhea overnight relieved by Imodium. denies fever/chills.
Vital Signs:
Vital Signs
Temp Pulse Resp BP Pulse Ox
98.3 F 72 17 108/67 93
06/25/23 07:44 06/25/23 05:00 06/25/23 05:00 06/25/23 05:00 06/25/23 05:00
physical exam
aaox3, HRR, lungs clear/dim
+bowel sounds
right groin dressing CDI
ecchymosis to groin and suprapubic area
Lab Results:
Laboratory Data
WBC 1.8 10^3/uL (4.8-10.8) L* 06/25/23 02:33
Hgb 8.5 g/dL (12.0-16.0) L 06/25/23 02:33
Plt Count 211 10^3/uL (130-400) 06/25/23 02:33
PT 14.0 Sec (11.4-14.6) 06/21/23 18:53
INR 1.10 06/21/23 18:53
APTT 122.6 Sec (23.4-35.0) H 06/25/23 02:33
eGFR > 60.00 06/25/23 02:33
06/20 PV US: No evidence of deep venous thrombosis of the right lower extremity.Extensive deep venous thrombosis of the left popliteal and calf veins, as detailed above.
06/[address]: Positive for pulmonary embolism. Subtle embolus extends into each main pulmonary trunk, and the segmental pulmonary arteries as detailed above. Right ventricle to left ventricle ratio measures 1.3, suggestive of mild right heart
strain. Moderate hiatal hernia.1 cm right thyroid nodule. Consider dedicated thyroid ultrasound for further characterization.
06/21 Vascular US: Successful suction embolectomy of both main pulmonary arteries, with significant improvement in central embolus burden.
06/24 CT Abd/pelvis: Small amount of stranding and small hematoma seen within the RIGHT groin related to recent catheterization. No evidence for retroperitoneal hemorrhage or any areas of active bleeding.5.0 x 4.1 x 5.6 cm soft tissue
mass/plasmacytoma within the RIGHT sacrum with likely involvement of the right S1 neural foramen.Moderate amount of fluid seen within the colon suspicious for possible enteritis or acute diarrheal illness.Nonspecific 5 mm low-attenuation focus
within the body of the pancreas, too small to characterize.Hepatic steatosis.
--- NOTE | 2023-06-25 11:04 | W.PN.PUL3 ---
Today's Communication / Plan
-
AC
NE off
Assessment
-
Patient is a 63 year old woman with history of multiple myeloma (followed at [facility] by Dr. Rasheed), asthma who presents to the ER with LLE swelling and shortness of breath. States swelling started a few days ago, with reported increasing warmth and
tenderness, worsening ZAMBRANO.� CTA on arrival showing large saddle PE with mild RHS. We are consulted for eval 06/21/23.
Acute PE/saddle embolus
Mild RHS with elevated troponin (peaked at 0.901)
LLE DVT
Leukopenia, 1.4
Anemia, Hb 11
Acute bacterial rhinosinusitis
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
Multiple myeloma s/p chemo and autologous BMT� �
s/p R chest PORT, managed at [place], Dr Rasheed
Completed 21 days of Pomalidomide/on weekly Daratumumab
Asthma, cough variant
Follows with Dr Almaraz
FeNO neg, normal PFT 2016, maintained on Flovent
LUE superficial thrombophlebitis from IVs, t/w Eliquis
Allergic rhinitis
HTN
GERD
HLD
TMJ� �
Herniated disc� �
Overweight, BMI 28
Osteopenia� �
Acute pancreatitis
Shingles� - 2018
Squamous cell skin cancer� �
Thyroid cyst� �
Plasmacytoma
Appendectomy� �
LPS cholecystectomy� �
Hysteroscopy D + C� �
Arthroscopy, multiple (bilateral knee)�
Plan
No oxygen was needed on admission, remains on RA
Prior history of lung disease is noted including cough variant asthma, maintained on daily ICS/outpatient records reviewed
Follows with Dr Almaraz
Normal PFTs in past
Continue augmentin x 5-7 days: rhinosinusitis
Suspected side effect of diarrhea
Acute saddle PE noted on CT
Discussed options with tPA vs suction thrombectomy, patient agreeable to intervention, did not want tPA
IR performed suction embolectomy on 06/21 with improvement in central embolus burden; patient tolerated procedure well
On IV heparin
She has been on Eliquis in past, likely will need lifelong OAC
As rec by Onc, can transition to apixaban prior to d/c
CT abd/p 06-24 showed no evidence of retroperitoneal hematoma
Low dose NE weaned down to off this AM 06-25
No prior ECHO noted in past
TTE with normal biventricular function
Trop peaked at 0.901 on 06/21/2023
MM history, maintained on Chemo as outpatient
Follows at [place]
Will need outpatient pulmonary evaluation in our office for PFTs and 6MWT
Reviewed with patient
Risk factors assessed for underlying sleep disordered breathing also noted, recommend outpatient PSG/sleep evaluation
+snoring
D/w Mrs aMr and IMU RN
Diagnostic Data
CXR 07/21/21- IMPRESSION: 1. � No radiographic evidence for airspace or interstitial disease in the lungs. 2. � Normal heart size without evidence for acute pulmonary edema. 3. � Right IJ chemotherapy Mediport in place.
CT CHEST 06/20/23- IMPRESSION:
1. Positive for pulmonary embolism. Subtle embolus extends into each main pulmonary trunk, embolization extends into the right lower lobe, right upper lobe, and left upper lobe pulmonary arteries. Right ventricle to left ventricle ratio measures 13.
No contrast reflux into the IVC.
2. Right ventricle to left ventricle ratio measures 1.3, suggestive of mild right heart strain.
3. Moderate hiatal hernia.
4. 1 cm right thyroid nodule. Consider dedicated thyroid ultrasound for further characterization.
Duplex 06/20/23- IMPRESSION:� No evidence of deep venous thrombosis of the right lower extremity.
Extensive deep venous thrombosis of the left popliteal and calf veins.
PFT 10/18/16: FEV1 2.85L 106%, FVC 3.46L 101%, ratio 82. TLC 5.84L 118%, DLCO 63%
Subjective Data
-
Date of Service:
Date of Service: June 25, 2023
Chief Complaint: Pulmonary Follow Up
Subjective:
Low dose NE decreasing dose, can d/c now as d/w patient and RN
Diarrhea with no evidence of bleeding, no hematuria
Review of Systems
General: Fever (n), Sweats (n), Chills and Satisfactory Appetite
HEENT: Epistaxis (n) and Dysphagia (n)
Cardiopulmonary: Dyspnea, Cough (n) and Chest Pain (n)
GI: Abdominal Pain (n), Nausea (n), Vomiting and Diarrhea
Neuro: Weakness
Genitourinary: Hematuria (n)
Objective Data
Data Reviewed
Vital Signs / I&O / Oxygen:
Vital Signs
Temp Pulse Resp BP Pulse Ox
98.3 F 72 17 108/67 93
06/25/23 07:44 06/25/23 05:00 06/25/23 05:00 06/25/23 05:00 06/25/23 05:00
Intake and Output
06/24/23 06/25/23 06/26/23
06:59 06:59 06:59
Intake Total 240 / 240 2395 / 2395
Output Total 760 / 760
Balance 240 / 240 1635 / 1635
SaO2 93
Physical Exam
General: Comfortable
HEENT: Normocephalic, Anicteric and Moist Mucous Membranes
Cardiovascular: S1-S2, Regular Rhythm, Murmur (n), Peripheral Edema (+1 left LE edema) and Other (R chest port-A-cath)
Respiratory: Clear, Wheeze (n), Crackles (n), Rhonchi (n), Non-Labored Respirations and Stridor
GI: Soft, Non Distended and Non Tender
Neurology: Awake, AO x 3 and No Motor Deficits
Skin: Warm and Dry
Labs/Micro/Reports
Lab Data
06/25/23 02:33
06/25/23 02:33
Laboratory Results
06/24/23 06/24/23 06/25/23
12:27 20:16 02:33
APTT 169.9 H* 64.5 H 122.6 H
06/25/23 06/25/23
09:55 10:27
APTT Cancelled Cancelled
Microbiology
06/25/23 08:38 Nose Nasal Screen MRSA (PCR) - Final
MRSA not detected - performed by PCR methodology.
[2023-06-25 11:29] LABS: APTT 69.9 Sec (23.4-35.0)
[2023-06-25] MEDS: HEPARIN 3000 UNITS IV (12:35)
[2023-06-25] MEDS: HEPARIN 25000 UNITS/250 ML IV (12:49)
--- NOTE | 2023-06-25 16:25 | CM ---
CM reviewed chart
ADC 1-2 days
VN vs no needs recommended by therapy
Pt remains in neutropenic precautions
CM will continue to follow for dc planning
Discharge Disposition- home, follow for needs
[2023-06-25] MEDS: VANCOCIN 200 IV (17:21)
--- NOTE | 2023-06-25 19:00 | PTCARENOTE ---
Rec'd pt this AM. Able to wean levo. remains on hep gtt. anxious. on RA. education provided on medications throughout shift.
[2023-06-25] MEDS: KCL 20 MEQ PO (19:38)
[2023-06-25 21:04] LABS: APTT 172.6 Sec (23.4-35.0)
[2023-06-25] MEDS: SINGULAIR 10 MG PO (21:08)
[2023-06-25] MEDS: NEO-SYNEPHRINE 0.5% NASAL SPRAY 1 SPRAY NASAL (21:08)
[2023-06-26] VITALS (11 sets, daily range): BP systolic 105–130; BP diastolic 66–78; BMI 28.2
[2023-06-26] MEDS: MAXIPIME 2000 MG IV ×3 (00:24→16:59)
[2023-06-26] MEDS: STERILE WATER FOR INJECTION 10 ML IV ×3 (00:24→16:59)
[2023-06-26] MEDS: NSS IV ×2 (00:52→07:39)
--- NOTE | 2023-06-26 00:55 | PTCARENOTE ---
Pt AAOx3, VSS. Heparin gtt in place, titrated per protocol. Pt able to ambulate to and from bathroom with assistx1. Pt demonstrates generalized weakness, but otherwise denies symptoms. Pt has strong, non-productive, occasional cough. Assessment as
documented. Pt had fever at 23:00 VS check, PRN tylenol given. Call preciado placed within reach
[2023-06-26 04:29] LABS: Hematocrit 21.4 % (37.0-47.0); Hemoglobin 7.3 g/dL (12.0-16.0); Mean Corp Hgb Conc. 34.1 g/dL (33.0-37.0); Mean Corpuscular Hgb 29.2 pg (27.0-31.0); Mean Corpuscular Volume 85.6 fL (81.0-99.0); Platelet Count 188 10^3/uL (130-400); Red Cell Dist. Width 15.4 % (11.5-14.5)
[2023-06-26 04:31] LABS: White Blood Cell Count 1.1 10^3/uL (4.8-10.8)
--- NOTE | 2023-06-26 04:49 | DOWNTIME ---
There was a [employer] Export Logistics Manager Downtime on 06/26/2023 from 0111 to 06/26/2023 at 0405. Downtime documentation of patient's care, including medication administrations, has been reconciled in the electronic record per guidelines. Refer to the
patient's paper chart under the miscellaneous tab to see printed paper medication records and downtime forms.
[2023-06-26 05:12] LABS: Blood Urea Nitrogen 6 mg/dl (7-17); Calcium 7.3 mg/dl (8.4-10.2); Carbon Dioxide 23 mmol/L (22-30); Chloride 113 mmol/L (98-107); Estimated Creatinine Clearance 82 ml/min; Glucose 87 mg/dl (70-99); Potassium 3.1 mmol/L (3.5-5.1); Sodium 137 mmol/L (135-145); eGFR > 60.00
[2023-06-26 05:16] LABS: APTT > 200 Sec (23.4-35.0)
[2023-06-26] MEDS: TYLENOL 1000 MG PO (05:35)
[2023-06-26] MEDS: VANCOCIN 200 IV (05:35)
--- NOTE | 2023-06-26 07:31 | W.PN.HOSP.TC ---
Today's Communication/Plan
-
Transfuse
Increase KCl dose
Labs in the morning
Assessment / Plan
Assessment / Plan
Gen-AAOx3, NAD
HEENT-NC, AT, anicteric, clear oral mm
Neck-supple
CV-reg, no M, +S1/S2
Lungs-clear B/L
Abd-soft, NT, ND
Ext-no edema
Musculoskeletal-no cyanosis, clubbing
Skin-warm and dry
Neuro-grossly non-focal
Psych-calm, cooperative
Shock -differential diagnosis includes bilateral pulm emboli versus septic versus other. Shock resolved. Off vasopressors.
Neutropenic fever -blood cultures negative so far. Continue cefepime, stop vancomycin. MRSA screen negative. Fever could also be due to pulmonary embolism. Does not look toxic. Absolute neutrophil count 400 yesterday, pending for today.
Acute saddle Pulmonary Embolism with Right Heart Strain
Acute LLE DVT - Status post successful suction embolectomy by [facility] on 06/21. Per [facility], Majority of the central clot was removed.
Not requiring oxygen.
Echocardiogram shows a 55 to 60%, no significant valvular disease.
Acute blood loss anemia - likely secondary to arteriogram and blood loss from right groin region. CT done, no evidence of retroperitoneal bleed. Hemoglobin improved to 8.5 today after 1 unit of transfusion on 06/24. Hemoglobin down to 7.3 today.
Doubt active bleeding. Will give 1 more unit of blood leukoreduced today.
Non-AL troponin elevation- likely secondary to saddle pulmonary embolism and episode of hypotension
Hx Multiple Myeloma
Neutropenia and anemia secondary to chemotherapy
-follows at [facility] Dr. Rasheed - updated by Dr. Stone on PE
-on Daratumumab (next dose would be due tomorrow)
-hold Pomadlidomide given PE (can increase risk) - patient will follow up with Dr. Rasheed at discharge
-Cont prophylactic medication with acyclovir
-Oncology following.
Asthma, cough variant
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
Essential Hypertension -losartan on hold for relative hypotension.
Acute sinusitis -has been on Augmentin up until now, discontinued due to initiation of cefepime and vancomycin.
Hypokalemia -replete orally. Magnesium normal. Increase KCl dose to 40 mill colons twice daily.
Hyponatremia -resolved.
Severe anxiety -related to acute illness, hospitalization. She denies history of anxiety. She is requesting as needed lorazepam.
GERD
-CLINICAL TRIAL DATA MANAGER pepcid, protonix
DVT PPx heparin gtt
FULL CODE
PT
Anticipated Discharge: > 48 hours
Subjective/Interval History
-
Date of Service: June 26, 2023
Patient seen and examined. No complaints.
Objective Data
-
Labs:
Laboratory Results
06/25/23 06/26/23 06/26/23
18:37 04:04 13:00
WBC 1.1 L*
Hgb 7.3 L
Hct 21.4 L
Plt Count 188
APTT 172.6 H* > 200 H* Pending
Sodium 137
Potassium 3.1 L
Chloride 113 H
Carbon Dioxide 23
BUN 6 L
Creatinine 0.7
Glucose 87
Calcium 7.3 L
Vital Signs:
Vital Signs
Temp Pulse Resp BP Pulse Ox
98.8 F 71 21 124/70 100
06/26/23 03:00 06/26/23 06:00 06/26/23 06:00 06/26/23 06:00 06/26/23 06:00
I&O
06/25/23 06/26/23 06/27/23
06:59 06:59 06:59
Intake Total 2395 / 2395 2156 / 2156
Output Total 760 / 760
Balance 1635 / 1635 2156 / 2156
Review of Systems
-
History Source: Patient
All other systems: Reviewed and negative
[2023-06-26 07:51] LABS: Anisocytosis 1+; Band Neutrophils 1 % (0-3); Eosinophils 1 % (0-6); Lymphocytes 31 % (20-51); Microcytosis 2+; Monocytes 23 % (2-9); Normal RBC Morphology No; Nucleated Red Blood Cells 1 (-); Platelets Checked Yes; Segmented Neutrophils 43 % (42-75)
[2023-06-26 07:52] LABS: Ovalocytes 1+; Poikilocytosis Occasional; Polychromasia Occasional; Tear Drop Red Blood Cells Occasional; Total Cells Counted 100
[2023-06-26 07:54] LABS: Absolute Neutrophils -Man Diff 0.4 10^3/uL (1.4-6.5)
[2023-06-26] MEDS: KCL 40 MEQ PO ×2 (09:10→20:01)
[2023-06-26] MEDS: PEPCID 40 MG PO (09:10)
[2023-06-26] MEDS: ZOVIRAX 400 MG PO ×2 (09:10→20:02)
[2023-06-26] MEDS: CLARITIN 10 MG PO (09:10)
[2023-06-26] MEDS: PROTONIX 40 MG PO ×2 (09:10→16:59)
--- NOTE | 2023-06-26 09:27 | W.PN.PUL3 ---
Today's Communication / Plan
-
Atbs
AC
PRBC
Assessment
-
Patient is a 63 year old woman with history of multiple myeloma (followed at [facility] by Dr. Rasheed), asthma who presents to the ER with LLE swelling and shortness of breath. States swelling started a few days ago, with reported increasing warmth and
tenderness, worsening ZAMBRANO.� CTA on arrival showing large saddle PE with mild RHS. We are consulted for eval 06/21/23.
Acute PE/saddle embolus
Mild RHS with elevated troponin (peaked at 0.901)
LLE DVT
Leukopenia, 1.4
Anemia, Hb 11
Acute bacterial rhinosinusitis
Low grade temp in neutropenic patient
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
Multiple myeloma s/p chemo and autologous BMT� �
s/p R chest PORT, managed at [place], Dr Rasheed
Completed 21 days of Pomalidomide/on weekly Daratumumab
Asthma, cough variant
Follows with Dr Almaraz
FeNO neg, normal PFT 2016, maintained on Flovent
LUE superficial thrombophlebitis from IVs, t/w Eliquis
Allergic rhinitis
HTN
GERD
HLD
TMJ� �
Herniated disc� �
Overweight, BMI 28
Osteopenia� �
Acute pancreatitis
Shingles� - 2018
Squamous cell skin cancer� �
Thyroid cyst� �
Plasmacytoma
Appendectomy� �
LPS cholecystectomy� �
Hysteroscopy D + C� �
Arthroscopy, multiple (bilateral knee)�
Plan
No oxygen was needed on admission, remains on RA
Prior history of lung disease is noted including cough variant asthma, maintained on daily ICS/outpatient records reviewed
Follows with Dr Almaraz
Normal PFTs in past
Continue augmentin x 5-7 days: rhinosinusitis
Suspected side effect of diarrhea
Low grade temp in neutropenic patient, started cefepime/vanco 06-25
Acute saddle PE noted on CT
Discussed options with tPA vs suction thrombectomy, patient agreeable to intervention, did not want tPA
IR performed suction embolectomy on 06/21 with improvement in central embolus burden; patient tolerated procedure well
On IV heparin
She has been on Eliquis in past, likely will need lifelong OAC
As rec by Onc, can transition to apixaban prior to d/c
CT abd/p 06-24 showed no evidence of retroperitoneal hematoma
Low dose NE weaned down to off AM 06-25
No prior ECHO noted in past
TTE with normal biventricular function
Trop peaked at 0.901 on 06/21/2023
MM history, maintained on Chemo as outpatient
Follows at [place]
Neutropenia, anemia
Transfuse for Hgb <7, to transfuse khushi -ve products as d/w blood bank
Risk factors assessed for underlying sleep disordered breathing also noted, recommend outpatient PSG/sleep evaluation
D/w Zaid on a daily basis
Diagnostic Data
CXR 07/21/21- IMPRESSION: 1. � No radiographic evidence for airspace or interstitial disease in the lungs. 2. � Normal heart size without evidence for acute pulmonary edema. 3. � Right IJ chemotherapy Mediport in place.
CT CHEST 06/20/23- IMPRESSION:
1. Positive for pulmonary embolism. Subtle embolus extends into each main pulmonary trunk, embolization extends into the right lower lobe, right upper lobe, and left upper lobe pulmonary arteries. Right ventricle to left ventricle ratio measures 13.
No contrast reflux into the IVC.
2. Right ventricle to left ventricle ratio measures 1.3, suggestive of mild right heart strain.
3. Moderate hiatal hernia.
4. 1 cm right thyroid nodule. Consider dedicated thyroid ultrasound for further characterization.
Duplex 06/20/23- IMPRESSION:� No evidence of deep venous thrombosis of the right lower extremity.
Extensive deep venous thrombosis of the left popliteal and calf veins.
PFT 10/18/16: FEV1 2.85L 106%, FVC 3.46L 101%, ratio 82. TLC 5.84L 118%, DLCO 63%
Subjective Data
-
Date of Service:
Date of Service: June 26, 2023
Chief Complaint: Pulmonary Follow Up
Subjective:
No major events reported
Remains on RA
Sitting in chair, comfortable
Review of Systems
General: Fever (n), Sweats (n), Chills (n) and Satisfactory Appetite
HEENT: Epistaxis (n) and Dysphagia (n)
Cardiopulmonary: Dyspnea (n at rest on RA), Cough (n), Sputum Production (n), Chest Pain (n) and Hemoptysis (n)
GI: Abdominal Pain (n), Nausea (n) and Vomiting (n)
Neuro: Weakness
Objective Data
Data Reviewed
Vital Signs / I&O / Oxygen:
Vital Signs
Temp Pulse Resp BP Pulse Ox
98 F 71 21 124/70 100
06/26/23 07:17 06/26/23 06:00 06/26/23 06:00 06/26/23 06:00 06/26/23 06:00
Intake and Output
06/25/23 06/26/23 06/27/23
06:59 06:59 06:59
Intake Total 2395 / 2395 2156 / 2156
Output Total 760 / 760
Balance 1635 / 1635 2156 / 2156
SaO2 100
Physical Exam
General: Comfortable
HEENT: Normocephalic, Anicteric and Moist Mucous Membranes
Cardiovascular: S1-S2, Regular Rhythm, Murmur (n), Peripheral Edema (+1 left LE edema) and Other (R chest port-A-cath)
Respiratory: Clear, Wheeze (n), Crackles (n), Rhonchi (n), Non-Labored Respirations and Stridor
GI: Soft, Non Distended and Non Tender
Neurology: Awake, AO x 3 and No Motor Deficits
Skin: Warm and Dry
Labs/Micro/Reports
Lab Data
06/26/23 04:04
06/26/23 04:04
Laboratory Results
06/25/23 06/25/23 06/25/23
09:55 10:27 11:01
APTT Cancelled Cancelled 69.9 H
06/25/23 06/26/23
18:37 04:04
APTT 172.6 H* > 200 H*
Microbiology
06/24/23 20:16 Blood/Venous Blood Culture - Preliminary
No Growth in 24 hours- Final report to follow
06/24/23 17:34 Blood/Venous Blood Culture - Preliminary
No Growth in 24 hours- Final report to follow
06/25/23 08:38 Nose Nasal Screen MRSA (PCR) - Final
MRSA not detected - performed by PCR methodology.
[2023-06-26] MEDS: HEPARIN 6000 UNITS IV (14:42)
[2023-06-26] MEDS: HEPARIN 25000 UNITS/250 ML IV (17:04)
--- NOTE | 2023-06-26 17:04 | CM ---
Patient with Hx Multiple myeloma s/p chemo with Dx Acute saddle Pulmonary Embolism with Right Heart Strain, Acute LLE DVT. Room air. Receiving Heparin gtt, IV cefepime. Plan transfusion today. PT recommends home PT v no needs.
Spoke with patient and offered VN for PT - patient declined saying she will probably not need it by time of d/c. She is hoping she can get a Copay card if she is started on Eliquis.
CM continuing to follow for d/c needs.
Plan home.
[2023-06-26] MEDS: OCEAN, SALINE MIST 2 SPRAYS NASAL ×2 (17:46→20:17)
[2023-06-26] MEDS: NEO-SYNEPHRINE 0.5% NASAL SPRAY 1 SPRAY NASAL (21:02)
[2023-06-26] MEDS: SINGULAIR 10 MG PO (21:02)
[2023-06-26] MEDS: IMODIUM 2 MG PO (21:37)
[2023-06-26 22:02] LABS: APTT > 200 Sec (23.4-35.0)
--- NOTE | 2023-06-26 23:01 | PTCARENOTE ---
PTT drawn at 0 and resulted >200 at 2205. 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 Will restart in 2 hrs decreased by 300Units /hr per protocol. Pt has some diarrhea and requested Imodium and given. She ambulates well to the bathroom with
assistance. Maintained on Neutropenic precautuons. Awaiting blood from the [facility].
[2023-06-27] VITALS (16 sets, daily range): BP systolic 106–141; BP diastolic 40–85
[2023-06-27] MEDS: MAXIPIME 2000 MG IV ×4 (01:00→23:25)
[2023-06-27] MEDS: STERILE WATER FOR INJECTION 10 ML IV ×4 (01:01→23:26)
[2023-06-27] MEDS: TYLENOL 1000 MG PO (01:34)
[2023-06-27] MEDS: IMODIUM 2 MG PO ×3 (01:35→20:40)
[2023-06-27 06:14] LABS: Hematocrit 21.7 % (37.0-47.0); Hemoglobin 7.4 g/dL (12.0-16.0); Mean Corp Hgb Conc. 34.1 g/dL (33.0-37.0); Mean Corpuscular Hgb 29.1 pg (27.0-31.0); Mean Corpuscular Volume 85.4 fL (81.0-99.0); Mean Platelet Volume 9.1 fL (7.4-10.4); Platelet Count 217 10^3/uL (130-400); Red Blood Cell Count 2.54 10^6/uL (4.20-5.40); Red Cell Dist. Width 15.2 % (11.5-14.5)
[2023-06-27 06:26] LABS: APTT 48.3 Sec (23.4-35.0)
[2023-06-27 06:28] LABS: White Blood Cell Count 1.4 10^3/uL (4.8-10.8)
[2023-06-27 06:45] LABS: Blood Urea Nitrogen 4 mg/dl (7-17); Calcium 7.9 mg/dl (8.4-10.2); Carbon Dioxide 24 mmol/L (22-30); Chloride 110 mmol/L (98-107); Estimated Creatinine Clearance 82 ml/min; Glucose 93 mg/dl (70-99); Potassium 3.2 mmol/L (3.5-5.1); Sodium 138 mmol/L (135-145); eGFR > 60.00
[2023-06-27] MEDS: HEPARIN 6000 UNITS IV (07:15)
[2023-06-27 07:43] LABS: Band Neutrophils 1 % (0-3); Segmented Neutrophils 23 % (42-75)
[2023-06-27 07:44] LABS: Atypical Lymphocytes 1 %; Eosinophils 2 % (0-6); Lymphocytes 58 % (20-51); Monocytes 13 % (2-9)
[2023-06-27 07:45] LABS: Platelets Checked Yes
[2023-06-27 07:46] LABS: Anisocytosis 1+; Hypochromasia 1+; Normal RBC Morphology No; Ovalocytes 1+; Polychromasia 1+
[2023-06-27 07:47] LABS: Total Cells Counted 100
[2023-06-27 07:48] LABS: Absolute Neutrophils -Man Diff 0.3 10^3/uL (1.4-6.5)
--- NOTE | 2023-06-27 07:50 | W.PN.HOSP.TC ---
Today's Communication/Plan
-
Transfuse
Monitor hemoglobin
Stop heparin
Lovenox
Assessment / Plan
Assessment / Plan
Gen-AAOx3, NAD
HEENT-NC, AT, anicteric, clear oral mm
Neck-supple
CV-reg, no M, +S1/S2
Lungs-clear B/L
Abd-soft, NT, ND
Ext-no edema
Musculoskeletal-no cyanosis, clubbing
Skin-warm and dry
Neuro-grossly non-focal
Psych-calm, cooperative
Shock -differential diagnosis includes bilateral pulm emboli versus septic versus other. Shock resolved. Off vasopressors.
Neutropenic fever -blood cultures negative so far. Continue cefepime. MRSA screen negative. Fever could also be due to pulmonary embolism. Does not look toxic. ANC 300 today.
Acute saddle Pulmonary Embolism with Right Heart Strain -will convert to Lovenox. Discontinue heparin. Anticipate discharge on Eliquis.
Acute LLE DVT - Status post successful suction embolectomy by [facility] on 06/21. Per [facility], Majority of the central clot was removed.
Not requiring oxygen.
Echocardiogram shows a 55 to 60%, no significant valvular disease.
Acute blood loss anemia - likely secondary to arteriogram and blood loss from right groin region. CT done, no evidence of retroperitoneal bleed. Transfused 1 unit of blood so far. Hemoglobin 7.3 yesterday, 7.4 today. Awaiting second unit to be
transfused. It was ordered yesterday.
Non-DE troponin elevation- likely secondary to saddle pulmonary embolism and episode of hypotension
Hx Multiple Myeloma
Neutropenia and anemia secondary to chemotherapy
-follows at [facility] Dr. Rasheed - updated by Dr. Stone on PE
-on Daratumumab (next dose would be due tomorrow)
-hold Pomadlidomide given PE (can increase risk) - patient will follow up with Dr. Rasheed at discharge
-Cont prophylactic medication with acyclovir
-Oncology following.
Asthma, cough variant
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
Essential Hypertension -losartan on hold for relative hypotension.
Acute sinusitis -has been on Augmentin up until now, discontinued due to initiation of cefepime and vancomycin.
Hypokalemia -replete orally. Suspect hypokalemia due to loose stools. Magnesium normal. Increase KCl dose to 40meq 3 times daily.
Hyponatremia -resolved.
Severe anxiety -related to acute illness, hospitalization. She denies history of anxiety. She is requesting as needed lorazepam.
GERD
-INVESTIGATIVE RESEARCH SPECIALIST pepcid, protonix
FULL CODE
PT
Anticipated Discharge: 24 - 48 hours
Subjective/Interval History
-
Date of Service: June 27, 2023
Patient seen and examined. She feels frustrated at being in the hospital for so long. No complaints otherwise.
Objective Data
-
Labs:
Laboratory Results
06/26/23 06/27/23 06/27/23
21:00 06:01 13:30
WBC 1.4 L*
Hgb 7.4 L
Hct 21.7 L
Plt Count 217
APTT > 200 H* 48.3 H Cancelled
Sodium 138
Potassium 3.2 L
Chloride 110 H
Carbon Dioxide 24
BUN 4 L
Creatinine 0.7
Glucose 93
Calcium 7.9 L
Vital Signs:
Vital Signs
Temp Pulse Resp BP Pulse Ox
98.1 F 75 14 112/73 97
06/27/23 07:11 06/27/23 06:00 06/27/23 06:00 06/27/23 06:00 06/27/23 06:00
I&O
06/26/23 06/27/23 06/28/23
06:59 06:59 06:59
Intake Total 2156 / 2156 282 / 282
Balance 2156 / 2156 282 / 282
Review of Systems
-
History Source: Patient
All other systems: Reviewed and negative
[2023-06-27] MEDS: LOVENOX 80 MG SC ×2 (08:16→20:26)
[2023-06-27] MEDS: CLARITIN 10 MG PO (08:16)
[2023-06-27] MEDS: KCL 40 MEQ PO ×3 (08:16→21:21)
[2023-06-27] MEDS: PEPCID 40 MG PO (08:18)
[2023-06-27] MEDS: PROTONIX 40 MG PO ×2 (08:19→16:47)
[2023-06-27] MEDS: ZOVIRAX 400 MG PO ×2 (08:19→20:26)
--- NOTE | 2023-06-27 08:58 | W.PN.PUL3 ---
Today's Communication / Plan
-
AC
Atb
PRBC
Reconsult prn
Assessment
-
Patient is a 63 year old woman with history of multiple myeloma (followed at [facility] by Dr. Rasheed), asthma who presents to the ER with LLE swelling and shortness of breath. States swelling started a few days ago, with reported increasing warmth and
tenderness, worsening ZAMBRANO.� CTA on arrival showing large saddle PE with mild RHS. We are consulted for eval 06/21/23.
Acute PE/saddle embolus
Mild RHS with elevated troponin (peaked at 0.901)
LLE DVT
Leukopenia, 1.4
Anemia, Hb 11
Acute bacterial rhinosinusitis
Low grade temp in neutropenic patient
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
Multiple myeloma s/p chemo and autologous BMT� �
s/p R chest PORT, managed at [facility], Dr Rasheed
Completed 21 days of Pomalidomide/on weekly Daratumumab
Asthma, cough variant
Follows with Dr Almaraz
FeNO neg, normal PFT 2016, maintained on Flovent
LUE superficial thrombophlebitis from IVs, t/w Eliquis
Allergic rhinitis
HTN
GERD
HLD
TMJ� �
Herniated disc� �
Overweight, BMI 28
Osteopenia� �
Acute pancreatitis
Shingles� - 2018
Squamous cell skin cancer� �
Thyroid cyst� �
Plasmacytoma
Appendectomy� �
LPS cholecystectomy� �
Hysteroscopy D + C� �
Arthroscopy, multiple (bilateral knee)�
Plan
No oxygen was needed on admission, remains on RA, POx 97%
Prior history of lung disease is noted including cough variant asthma, maintained on daily ICS/outpatient records reviewed
Follows with Dr Almaraz
Normal PFTs in past
Was on augmentin x 5-7 days: rhinosinusitis
Suspected side effect of diarrhea, augmentin d/c
Low grade temp in neutropenic patient on 06-24 and , started cefepime/vanco 06-25
Blood cxs 06-24 so far negative
MRSA screening negative, off vanco
Acute saddle PE noted on CT
Discussed options with tPA vs suction thrombectomy, patient agreeable to intervention, did not want tPA
IR performed suction embolectomy on 06/21 with improvement in central embolus burden; patient tolerated procedure well
IV heparin transitioned to enoxaparin
She has been on Eliquis in past, likely will need lifelong OAC
As rec by Onc, will transition to apixaban prior to d/c
CT abd/p 06-24 showed no evidence of retroperitoneal hematoma post thrombectomy
Low dose NE weaned down to off AM 06-25
No prior ECHO noted in past
TTE with normal biventricular function
Trop peaked at 0.901 on 06/21/2023
MM history, maintained on Chemo as outpatient
Follows at [facility]
Neutropenia, anemia
s/p 1U PRBCs 06-24
Transfuse for Hgb <7, to transfuse khushi -ve products as d/w blood bank, pending 2nd unit
Risk factors assessed for underlying sleep disordered breathing also noted, recommend outpatient PSG/sleep evaluation
D/w Mrs Mar on a daily basis
Disposition efforts
Reconsult prn, follow with Dr Almaraz in 2-3 wks p d/c
Diagnostic Data
CXR 07/21/21- IMPRESSION: 1. � No radiographic evidence for airspace or interstitial disease in the lungs. 2. � Normal heart size without evidence for acute pulmonary edema. 3. � Right IJ chemotherapy Mediport in place.
CT CHEST 06/20/23- IMPRESSION:
1. Positive for pulmonary embolism. Subtle embolus extends into each main pulmonary trunk, embolization extends into the right lower lobe, right upper lobe, and left upper lobe pulmonary arteries. Right ventricle to left ventricle ratio measures 13.
No contrast reflux into the IVC.
2. Right ventricle to left ventricle ratio measures 1.3, suggestive of mild right heart strain.
3. Moderate hiatal hernia.
4. 1 cm right thyroid nodule. Consider dedicated thyroid ultrasound for further characterization.
Duplex 06/20/23- IMPRESSION:� No evidence of deep venous thrombosis of the right lower extremity.
Extensive deep venous thrombosis of the left popliteal and calf veins.
PFT 10/18/16: FEV1 2.85L 106%, FVC 3.46L 101%, ratio 82. TLC 5.84L 118%, DLCO 63%
Subjective Data
-
Date of Service:
Date of Service: June 27, 2023
Chief Complaint: Pulmonary Follow Up
Subjective:
No major events reported
Awaiting PRBCs
Changed IV hep to enox
Trace cough from PND improving
Review of Systems
General: Fever (n), Sweats (n), Chills and Satisfactory Appetite
HEENT: Epistaxis (n) and Dysphagia (n)
Cardiopulmonary: Dyspnea, Cough (trace), Sputum Production (n), Wheezing (n), Chest Pain and Hemoptysis
GI: Abdominal Pain (n), Nausea (n) and Vomiting
Neuro: Weakness
Objective Data
Data Reviewed
Vital Signs / I&O / Oxygen:
Vital Signs
Temp Pulse Resp BP Pulse Ox
98.1 F 75 14 112/73 97
06/27/23 07:11 06/27/23 06:00 06/27/23 06:00 06/27/23 06:00 06/27/23 06:00
Intake and Output
06/26/23 06/27/23 06/28/23
06:59 06:59 06:59
Intake Total 2155 282 / 282
Balance 2155 282 / 282
SaO2 97
Physical Exam
General: Comfortable
HEENT: Normocephalic, Anicteric and Moist Mucous Membranes
Cardiovascular: S1-S2, Regular Rhythm, Murmur (n), Peripheral Edema (+1 left LE edema) and Other (R chest port-A-cath)
Respiratory: Clear, Wheeze (n), Crackles (n), Rhonchi (n), Non-Labored Respirations and Stridor
GI: Soft, Non Distended and Non Tender
Neurology: Awake, AO x 3 and No Motor Deficits
Skin: Warm and Dry
Labs/Micro/Reports
Lab Data
06/27/23 06:01
06/27/23 06:01
Laboratory Results
06/26/23 06/26/23 06/26/23
13:54 19:00 21:00
APTT 46.0 H Cancelled > 200 H*
06/27/23 06/27/23
06:01 13:30
APTT 48.3 H Cancelled
Microbiology
06/24/23 20:16 Blood/Venous Blood Culture - Preliminary
No Growth in 48 hours- Final report to follow
06/24/23 17:34 Blood/Venous Blood Culture - Preliminary
No Growth in 48 hours- Final report to follow
06/25/23 08:38 Nose Nasal Screen MRSA (PCR) - Final
MRSA not detected - performed by PCR methodology.
[2023-06-27 09:01] LABS: Magnesium 1.8 mg/dl (1.6-2.3)
--- NOTE | 2023-06-27 11:23 | W.PN.ONC ---
Today's Communication / Plan
-
s/p thrombectomy.
Approved for least compatible transfusion today given Darzalex exposure
Monitor CBC closely to ensure hgb stable/improving and no ongoing bleeding concerns
IV Heparin >> transition to Eliquis upon discharge: 10mg BID x7 days followed by 5mg BID
Currently off week of Pomalidomide anticipate pomalidomide 4mg daily x21 days, 7 days off, medication is thrombogenic
Continue prophylactic Acyclovir
Patient scheduled tomorrow for treatment will reschedule
Impression
Impression
Acute PE w/ right heart strain s/p thrombectomy
LLE DVT
IgG Whitakers multiple Myeloma (2014) (currently on Pomalidomide, Daratumumab)
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
Diffuse lytic bone lesions
Hypogammaglobulinemia
Neutropenia
Fever
Right groin hematoma at vascular access site
Acute diarrhea
Subjective/Objective
Subjective/Objective
No acute distress this morning. Respiratory status stable. No atypical bleeding noted
Vital Signs:
Vital Signs
Temp Pulse Resp BP Pulse Ox
98.5 F 112 24 138/85 98
06/27/23 11:10 06/27/23 11:10 06/27/23 11:10 06/27/23 11:10 06/27/23 08:00
Physical Exam
General: Comfortable
HEENT: Normocephalic, Anicteric and Moist Mucous Membranes
Cardiovascular: S1-S2, Regular Rhythm
Respiratory: Clear, Non-Labored Respirations and Stridor
GI: Soft, Non Distended and Non Tender
Neurology: Awake, AO x 3 and No Motor Deficits
Skin: Warm and Dry
Lab Results:
Laboratory Data
WBC 1.4 10^3/uL (4.8-10.8) L* 06/27/23 06:01
Hgb 7.4 g/dL (12.0-16.0) L 06/27/23 06:01
Plt Count 217 10^3/uL (130-400) 06/27/23 06:01
PT 14.0 Sec (11.4-14.6) 06/21/23 18:53
INR 1.10 06/21/23 18:53
APTT Cancelled 06/27/23 13:30
eGFR > 60.00 06/27/23 06:01
[2023-06-27] MEDS: SINGULAIR 10 MG PO (21:20)
[2023-06-27] MEDS: NEO-SYNEPHRINE 0.5% NASAL SPRAY 1 SPRAY NASAL (21:23)
[2023-06-28 00:07] VITALS: BP 117/68
[2023-06-28 02:41] VITALS: BP 120/89
[2023-06-28 04:00] VITALS: BP 107/76
[2023-06-28 05:05] LABS: Hematocrit 26.2 % (37.0-47.0); Mean Corpuscular Volume 85.3 fL (81.0-99.0); Mean Platelet Volume 9.4 fL (7.4-10.4); Platelet Count 252 10^3/uL (130-400); Red Blood Cell Count 3.07 10^6/uL (4.20-5.40); Red Cell Dist. Width 15.8 % (11.5-14.5)
[2023-06-28 05:17] LABS: Blood Urea Nitrogen 5 mg/dl (7-17); Calcium 8.5 mg/dl (8.4-10.2); Carbon Dioxide 28 mmol/L (22-30); Chloride 106 mmol/L (98-107); Estimated Creatinine Clearance 82 ml/min; Glucose 104 mg/dl (70-99); Potassium 3.8 mmol/L (3.5-5.1); Sodium 138 mmol/L (135-145); eGFR > 60.00
[2023-06-28 05:20] LABS: Hemoglobin 8.9 g/dL (12.0-16.0)
[2023-06-28 05:21] LABS: White Blood Cell Count 1.9 10^3/uL (4.8-10.8)
[2023-06-28 06:00] VITALS: BP 108/65
[2023-06-28 07:28] LABS: Absolute Neutrophils -Man Diff 0.9 10^3/uL (1.4-6.5); Band Neutrophils 0 % (0-3); Eosinophils 1 % (0-6); Lymphocytes 33 % (20-51); Monocytes 16 % (2-9); Segmented Neutrophils 49 % (42-75)
[2023-06-28 07:29] LABS: Anisocytosis 1+; Metamyelocytes 1 % (-); Normal RBC Morphology No; Nucleated Red Blood Cells 2 (-); Platelets Checked 6; Polychromasia 1+
[2023-06-28 07:30] LABS: Ovalocytes 1+
[2023-06-28 07:31] LABS: Total Cells Counted 100
--- NOTE | 2023-06-28 07:38 | W.PN.HOSP.TC ---
Addendum entered and electronically signed by Escobar Camargo DO 07/08/23 07:26:
Shock - unknown type.
Original Note:
Today's Communication/Plan
-
Ambulatory pulse ox on room air
Discharge
Assessment / Plan
Assessment / Plan
Gen-AAOx3, NAD
HEENT-NC, AT, anicteric, clear oral mm
Neck-supple
CV-reg, no M, +S1/S2
Lungs-clear B/L
Abd-soft, NT, ND
Ext-no edema
Musculoskeletal-no cyanosis, clubbing
Skin-warm and dry
Neuro-grossly non-focal
Psych-calm, cooperative
Shock -differential diagnosis includes bilateral pulm emboli versus septic versus other. Shock resolved. Off vasopressors.
Neutropenic fever -blood cultures negative so far. Will convert to Augmentin on discharge. Fever resolved.
Acute saddle Pulmonary Embolism with Right Heart Strain -suspect trigger for VTE was underlying malignancy as well as pomalidomide. Anticipate discharge on Eliquis. Will ask social work to look into cost of Eliquis. Anticipate minimum 6 months of
anticoagulation on discharge.
Acute LLE DVT - Status post successful suction embolectomy by [facility] on 06/21. Per [facility], Majority of the central clot was removed.
Not requiring oxygen.
Echocardiogram shows a 55 to 60%, no significant valvular disease.
Acute blood loss anemia - likely secondary to arteriogram and blood loss from right groin region. CT done, no evidence of retroperitoneal bleed. Transfused 2 units of blood during this hospitalization, hemoglobin improved to 8.9 today. Doubt
active bleeding. Check CBC next week as outpatient.
Non-TN troponin elevation- likely secondary to saddle pulmonary embolism and episode of hypotension
Hx Multiple Myeloma
Neutropenia and anemia secondary to chemotherapy
-follows at [facility] Dr. Rasheed - updated by Dr. Stone on PE
-on Daratumumab (next dose would be due tomorrow)
-hold Pomadlidomide given PE (can increase risk) - patient will follow up with Dr. Rasheed at discharge
-Cont prophylactic medication with acyclovir
-Oncology following.
Asthma, cough variant
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
Essential Hypertension -losartan on hold for relative hypotension.
Acute sinusitis -has been on Augmentin up until now, discontinued due to initiation of cefepime and vancomycin.
Hypokalemia -replete orally. Suspect hypokalemia due to loose stools. Magnesium normal. Potassium improved to 3.8 today.
Hyponatremia -resolved.
Severe anxiety -related to acute illness, hospitalization. She denies history of anxiety. She is requesting as needed lorazepam.
GERD
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
FULL CODE
Dispo -stable for discharge home today. Follow-up with oncology next week. CBC, BMP next week.
35 minutes spent in discharge process.
Anticipated Discharge: Today
Subjective/Interval History
-
Date of Service: June 28, 2023
Patient seen and examined. No complaints.
Objective Data
-
Labs:
Laboratory Results
06/28/23
04:46
WBC 1.9 L*
Hgb 8.9 L D
Hct 26.2 L
Plt Count 252
Sodium 138
Potassium 3.8
Chloride 106
Carbon Dioxide 28
BUN 5 L
Creatinine 0.7
Glucose 104 H
Calcium 8.5
Vital Signs:
Vital Signs
Temp Pulse Resp BP Pulse Ox
99.2 F 75 19 108/65 94
06/28/23 03:37 06/28/23 06:00 06/28/23 06:00 06/28/23 06:00 06/28/23 00:07
I&O
06/27/23 06/28/23 06/29/23
06:59 06:59 06:59
Intake Total 282 / 282 1090 / 1090
Balance 282 / 282 1090 / 1090
Review of Systems
-
History Source: Patient
All other systems: Reviewed and negative
--- NOTE | 2023-06-28 07:48 | W.DS.TRANS ---
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
-
Discharge Instructions:
Discharge Diagnosis/Procedures Acute pulmonary embolism, left lower extremity
DVT, hypokalemia, acute blood loss anemia,
mechanical embolectomy
Diet Regular
Activity As tolerated
Driving Restrictions As prior to admission
Bathing Restrictions None
Blood Work CBC, BMP next week
Instructions:
Stand-Alone Forms:
Changes to Home Medications: Yes
Discharge Medications:
DC Medications w/original date entered in Judys Book
fluticasone propionate 50 mcg/actuation nasal spray,suspension 1 spray intranasal DAILY ##1 05/11/17
famotidine 40 mg tablet 40 mg PO DAILY Gastrointestinal Issue 05/24/23
montelukast 10 mg tablet 10 mg PO HS Allergies 05/24/23
pantoprazole 40 mg tablet,delayed release 40 mg PO BID Gastrointestinal Issue 05/24/23
acetaminophen 500 mg tablet 1,000 mg PO FR Pain 06/20/23
acetaminophen 500 mg tablet 1,000 mg PO Q6H PRN mild pain/fever 06/20/23
acyclovir 400 mg tablet 400 mg PO BID Infection 06/20/23
loratadine 10 mg tablet (Claritin) 10 mg PO DAILY Allergies 06/20/23
oxycodone-acetaminophen 5 mg-325 mg tablet 1 tab PO Q4H PRN moderate pain 06/20/23
phenylephrine HCl 0.5 % nasal spray 1 spray intranasal HS Allergies 06/20/23
amoxicillin 875 mg-potassium clavulanate 125 mg tablet 1 tab PO Q12 #8 tabs 06/28/23
apixaban 5 mg (74 tabs) tablets in a dose pack (Eliquis DVT-PE Treat 30D Start) 5 mg PO ONCE #74 ea 06/28/23
potassium chloride 20 mEq tablet,extended release 40 meq PO TID #42 tabs 06/28/23
Home Medication Changes
Losartan discontinued
Pending Results: No
[2023-06-28 08:00] VITALS: BP 123/93
[2023-06-28] MEDS: PEPCID 40 MG PO (08:13)
[2023-06-28] MEDS: ELIQUIS 10 MG PO (08:13)
[2023-06-28] MEDS: ZOVIRAX 400 MG PO (08:13)
[2023-06-28] MEDS: AUGMENTIN 875 MG/125 MG 1 TABLET PO (08:13)
[2023-06-28] MEDS: CLARITIN 10 MG PO (08:13)
[2023-06-28] MEDS: PROTONIX 40 MG PO (08:13)
[2023-06-28] MEDS: KCL 40 MEQ PO (08:14)
--- NOTE | 2023-06-28 10:06 | PTCARENOTE ---
Dressing removed from R groin site no bleeding . Bruising note
--- NOTE | 2023-06-28 16:06 | CM ---
Patient with Hx Multiple myeloma s/p chemo with Dx Acute saddle Pulmonary Embolism, Acute LLE DVT s/p Bilateral pulmonary arteriogram, mechanical embolectomy. Room air.
CM Consult: Eliquis 10mg BID X 7 days then 5mg BID per Dr Camargo.
Message to Dr Camargo: patient ok with $60 Eliquis cost, computer only allows to check 5mg BID, will provide copay card.
Met with patient and provided cost of Eliquis. Patient says she has been on Eliquis previously and she agrees to cost. Eliquis $10 copay card provided. The patient says she feels ready for d/c home today. Her will provide a ride home.
No CM d/c needs identified.
Plan home today.
--- NOTE | 2023-07-02 13:49 | PN.CDI ---
CDI
- -
CDI:
Physician Documentation Request
Admit Date: 06/21/23 01:13
Dear Doctor Mary Jo,
Please review the following and provide your response in the progress notes.
Clinical Indicators:
- 06/28 PN 'Shock -differential diagnosis includes bilateral pulm emboli versus septic versus other'
- 06/28 DC Summary indicates 'shock' without specificity
- 06/24 WBC 1.6, T max 100.5, HR 100s
Please clarify which of the following is the most likely etiology of the above symptoms and treatment rendered:
Septic shock - indicate infection etiology
Shock, unknown type
Other
Use of terms such as suspected, likely, concern for, or probable (associated with a specific diagnosis that is being evaluated, monitored, or treated as if it exists) are acceptable and can be coded in the inpatient setting, when documented at the
time of discharge.
Thank you,
Ivan Burciaga RN
CDI Specialist
Please use your independent medical judgment in providing your response.
== END 2023-06-28 13:37 | disposition home or self-care (01) | DRG 164 ==
LOC: IMU 01:13
PROVIDERS: Hospitalist; Internal Medicine Critical Care Medicine; Nurse Practitioner; Nurse Practitioner Family; Radiology Vascular & Interventional Radiology; Registered Nurse; ADMITTING PHYSICIAN Student in an Organized Health Care Education/Training Program; ATTENDING PHYSICIAN Hospitalist; EMERGENCY PHYSICIAN Emergency Medicine; FAMILY PHYSICIAN Family Medicine; OTHER PHYSICIAN Internal Medicine; OTHER PHYSICIAN Internal Medicine Hematology & Oncology
PROC: B31U1ZZ Fluoroscopy of Pulmonary Trunk using Low Osmolar Contrast (ICD-10-PCS; 2023-06-21)
PROC: B31S1ZZ Fluoroscopy of Right Pulmonary Artery using Low Osmolar Contrast (ICD-10-PCS; 2023-06-21)
PROC: B31T1ZZ Fluoroscopy of Left Pulmonary Artery using Low Osmolar Contrast (ICD-10-PCS; 2023-06-21)
PROC: X2CY3T7 Extirpation of Matter from Great Vessel using Computer-aided Mechanical Aspiration, Percutaneous Approach, New Technology Group 7 (ICD-10-PCS; 2023-06-21)
PROC: 30243N1 Transfusion of Nonautologous Red Blood Cells into Central Vein, Percutaneous Approach (ICD-10-PCS; 2023-06-24)
DX: I26.92 Saddle embolus of pulmonary artery without acute cor pulmonale (principal); C90.00 Multiple myeloma not having achieved remission; I82.432 Acute embolism and thrombosis of left popliteal vein; D61.818 Other pancytopenia; Z94.84 Stem cells transplant status; D80.1 Nonfamilial hypogammaglobulinemia; D62 Acute posthemorrhagic anemia; I97.618 Postprocedural hemorrhage of a circulatory system organ or structure following other circulatory system procedure; D68.59 Other primary thrombophilia; R57.9 Shock, unspecified; I5A Non-ischemic myocardial injury (non-traumatic); E87.1 Hypo-osmolality and hyponatremia; J01.80 Other acute sinusitis; D70.9 Neutropenia, unspecified; I10 Essential (primary) hypertension; K21.9 Gastro-esophageal reflux disease without esophagitis; K59.00 Constipation, unspecified; M19.90 Unspecified osteoarthritis, unspecified site; E78.00 Pure hypercholesterolemia, unspecified; J45.991 Cough variant asthma; M85.80 Other specified disorders of bone density and structure, unspecified site; D64.81 Anemia due to antineoplastic chemotherapy; Y92.239 Unspecified place in hospital as the place of occurrence of the external cause; E87.6 Hypokalemia; F41.0 Panic disorder [episodic paroxysmal anxiety]; S30.1XXA Contusion of abdominal wall, initial encounter; R19.7 Diarrhea, unspecified; T45.1X5A Adverse effect of antineoplastic and immunosuppressive drugs, initial encounter; R50.9 Fever, unspecified; E04.1 Nontoxic single thyroid nodule; K44.9 Diaphragmatic hernia without obstruction or gangrene; G62.9 Polyneuropathy, unspecified; Z92.21 Personal history of antineoplastic chemotherapy; Z79.82 Long term (current) use of aspirin; Z79.51 Long term (current) use of inhaled steroids; Z79.52 Long term (current) use of systemic steroids; Z11.52 Encounter for screening for COVID-19; Z86.718 Personal history of other venous thrombosis and embolism; Z85.828 Personal history of other malignant neoplasm of skin
CPT/HCPCS: 36014; 36620; 37184; 71275; 74177; 75743; 76937; 80048; 80053; 82248; 82962; 83605; 83735; 83880; 84484; 85025; 85027; 85379; 85610; 85730; 86850; 86870; 86900; 86901; 86902; 86920; 86922; 87040; 87641; 87811; 93005; 93306; 93970; 96360; 97162; 99152; 99153; 99291; C1769; C1887; P9016; Q9967

== ENCOUNTER → 2023-07-24 14:56 | Outpatient (REF) | payer OTHER, SELFPAY | LOC: HWRAD 14:56 | PROVIDERS: ATTENDING PHYSICIAN Internal Medicine Critical Care Medicine; FAMILY PHYSICIAN Family Medicine; OTHER PHYSICIAN Internal Medicine Hematology & Oncology; REFERRING PHYSICIAN Internal Medicine Hematology & Oncology | DX: J01.80 Other acute sinusitis (principal) | CPT/HCPCS: 70486 ==

== ENCOUNTER → 2023-10-15 12:47 | Outpatient (REF) | payer OTHER, SELFPAY | LOC: HWRCS 12:47 | PROVIDERS: ATTENDING PHYSICIAN Internal Medicine Critical Care Medicine; FAMILY PHYSICIAN Family Medicine | DX: I26.09 Other pulmonary embolism with acute cor pulmonale (principal) | CPT/HCPCS: 93306 ==

== ENCOUNTER → 2023-11-08 07:27 | Outpatient (REF) | payer OTHER, SELFPAY | LOC: PAVMRI 07:27 | PROVIDERS: ATTENDING PHYSICIAN Internal Medicine Hematology & Oncology; FAMILY PHYSICIAN Family Medicine | DX: C90.00 Multiple myeloma not having achieved remission (principal); D70.9 Neutropenia, unspecified | CPT/HCPCS: 74183; A9575 ==

== ENCOUNTER → 2024-01-03 10:38 | Outpatient (REF) | payer OTHER, SELFPAY | LOC: HWRAD 10:38 | PROVIDERS: ATTENDING PHYSICIAN Nurse Practitioner Primary Care; FAMILY PHYSICIAN Family Medicine; REFERRING PHYSICIAN Internal Medicine Hematology & Oncology | DX: C90.00 Multiple myeloma not having achieved remission (principal); D70.9 Neutropenia, unspecified; R19.7 Diarrhea, unspecified; E87.6 Hypokalemia; D80.1 Nonfamilial hypogammaglobulinemia | CPT/HCPCS: 71260; Q9967 ==

== ENCOUNTER → 2024-03-11 14:56 | Outpatient (REF) | payer OTHER, SELFPAY | LOC: HWRAD 14:56 | PROVIDERS: ATTENDING PHYSICIAN Radiology Radiation Oncology; FAMILY PHYSICIAN Family Medicine; OTHER PHYSICIAN Internal Medicine Hematology & Oncology; REFERRING PHYSICIAN Internal Medicine Hematology & Oncology | DX: C90.00 Multiple myeloma not having achieved remission (principal) | CPT/HCPCS: 71250 ==

== ENCOUNTER → 2024-04-17 10:31 | Outpatient (REF) | payer OTHER, SELFPAY | LOC: RAD 10:31 | PROVIDERS: ATTENDING PHYSICIAN Internal Medicine Hematology & Oncology; FAMILY PHYSICIAN Family Medicine | DX: C90.00 Multiple myeloma not having achieved remission (principal); D70.9 Neutropenia, unspecified; R19.7 Diarrhea, unspecified; E87.6 Hypokalemia; D80.1 Nonfamilial hypogammaglobulinemia | CPT/HCPCS: 70220; 71046 ==

== ENCOUNTER → 2024-04-27 09:44 | Outpatient (REF) | payer OTHER, SELFPAY | LOC: HWWDC 09:44 | PROVIDERS: ATTENDING PHYSICIAN Obstetrics & Gynecology Gynecology; FAMILY PHYSICIAN Family Medicine | DX: Z12.31 Encounter for screening mammogram for malignant neoplasm of breast (principal) | CPT/HCPCS: 77063; 77067 ==

== ENCOUNTER → 2024-05-07 09:43 | Outpatient (REF) | payer OTHER, SELFPAY | LOC: PAVMRI 09:43 | PROVIDERS: ATTENDING PHYSICIAN Internal Medicine Hematology & Oncology; REFERRING PHYSICIAN Internal Medicine Hematology & Oncology | DX: R19.7 Diarrhea, unspecified (principal); E87.6 Hypokalemia; C70.9 Malignant neoplasm of meninges, unspecified; D80.1 Nonfamilial hypogammaglobulinemia | CPT/HCPCS: 70543; A9575 ==

== ENCOUNTER → 2024-05-14 10:00 | Outpatient (REF) | payer OTHER, SELFPAY | LOC: RADI 10:00 | PROVIDERS: ATTENDING PHYSICIAN Internal Medicine Hematology & Oncology | DX: T82.898A Other specified complication of vascular prosthetic devices, implants and grafts, initial encounter (principal); Y82.8 Other medical devices associated with adverse incidents | CPT/HCPCS: 36598 ==

== ENCOUNTER → 2024-05-19 13:44 | Outpatient (REF) | payer OTHER, SELFPAY | LOC: HWRAD 13:44 | PROVIDERS: ATTENDING PHYSICIAN Internal Medicine Hematology & Oncology; FAMILY PHYSICIAN Family Medicine; REFERRING PHYSICIAN Internal Medicine Hematology & Oncology | DX: R05.9 Cough, unspecified (principal); C90.00 Multiple myeloma not having achieved remission | CPT/HCPCS: 70220; 71046; 71110 ==

== ENCOUNTER → 2024-07-16 13:20 | Outpatient (REF) | payer OTHER, SELFPAY ==
[2024-07-16 13:55] LABS: Hematocrit 31.4 % (37.0-47.0); Hemoglobin 10.2 g/dL (12.0-16.0); Mean Corp Hgb Conc. 32.5 g/dL (33.0-37.0); Mean Corpuscular Volume 95.4 fL (81.0-99.0); Mean Platelet Volume 10.7 fL (7.4-10.4); Platelet Count 143 10^3/uL (130-400); Red Blood Cell Count 3.29 10^6/uL (4.20-5.40); Red Cell Dist. Width 14.4 % (11.5-14.5); White Blood Cell Count 2.2 10^3/uL (4.8-10.8)
[2024-07-16 14:09] LABS: Band Neutrophils 0 % (0-3); Eosinophils 1 % (0-6); Lymphocytes 47 % (20-51); Monocytes 21 % (2-9); Platelets Checked Yes; Segmented Neutrophils 31 % (42-75)
[2024-07-16 14:11] LABS: Normal RBC Morphology No; Ovalocytes 1+; Total Cells Counted 100
[2024-07-16 14:13] LABS: ALT (SGPT) 14 U/L (0-35); AST (SGOT) 13 U/L (14-36); Absolute Neutrophils -Man Diff 0.6 10^3/uL (1.4-6.5); Albumin 4.3 g/dl (3.5-5.0); Alkaline Phosphatase 75 U/L (38-126); Blood Urea Nitrogen 16 mg/dl (7-17); Calcium 9.6 mg/dl (8.4-10.2); Carbon Dioxide 26 mmol/L (22-30); Chloride 102 mmol/L (98-107); Glucose 103 mg/dl (70-99); Potassium 4.6 mmol/L (3.5-5.1); Sodium 137 mmol/L (135-145); Total Bilirubin 2.4 mg/dl (0.2-1.3); Total Protein 6.7 g/dl (6.3-8.2); eGFR > 60.00
== END ==
LOC: OIDL 13:20
PROVIDERS: ATTENDING PHYSICIAN Internal Medicine Hematology & Oncology
DX: C90.00 Multiple myeloma not having achieved remission (principal); D70.9 Neutropenia, unspecified; R19.7 Diarrhea, unspecified; E87.6 Hypokalemia; D80.1 Nonfamilial hypogammaglobulinemia
CPT/HCPCS: 80053; 85025

== ENCOUNTER → 2024-08-07 15:51 | Outpatient (REF) | payer OTHER, SELFPAY ==
[2024-08-07 09:24] LABS: % Basophils 0.4 % (0-2); % Eosinophils 1.8 % (0-6); % Immature Granulocytes 0.4 % (0-0.5); % Lymphocytes 24.2 % (20.5-51.1); % Monocytes 16.5 % (1.7-9.3); % Neutrophils 56.7 % (42.2-75.2); Absolute Eosinophils 0.1 10^3/uL (0-0.7); Absolute Lymphocytes 0.7 10^3/uL (1.2-3.4); Absolute Monocytes 0.5 10^3/uL (0.1-0.6); Absolute Neutrophils 1.6 10^3/uL (1.4-6.5); Hematocrit 32.9 % (37.0-47.0); Hemoglobin 10.7 g/dL (12.0-16.0); Mean Corp Hgb Conc. 32.5 g/dL (33.0-37.0); Mean Corpuscular Hgb 30.7 pg (27.0-31.0); Mean Corpuscular Volume 94.3 fL (81.0-99.0); Mean Platelet Volume 8.8 fL (7.4-10.4); Platelet Count 270 10^3/uL (130-400); Red Blood Cell Count 3.49 10^6/uL (4.20-5.40); Red Cell Dist. Width 13.8 % (11.5-14.5); White Blood Cell Count 2.9 10^3/uL (4.8-10.8)
[2024-08-07 09:53] LABS: ALT (SGPT) 18 U/L (0-35); AST (SGOT) 17 U/L (14-36); Albumin 4.1 g/dl (3.5-5.0); Alkaline Phosphatase 70 U/L (38-126); Blood Urea Nitrogen 17 mg/dl (7-17); Calcium 9.7 mg/dl (8.4-10.2); Carbon Dioxide 30 mmol/L (22-30); Chloride 104 mmol/L (98-107); Glucose 110 mg/dl (70-99); Potassium 4.2 mmol/L (3.5-5.1); Sodium 140 mmol/L (135-145); Total Bilirubin 1.4 mg/dl (0.2-1.3); Total Protein 6.7 g/dl (6.3-8.2); eGFR > 60.00
== END ==
LOC: OIDL 15:51
PROVIDERS: ATTENDING PHYSICIAN Internal Medicine Hematology & Oncology
DX: C90.00 Multiple myeloma not having achieved remission (principal)
CPT/HCPCS: 80053; 85025

== ENCOUNTER → 2024-08-12 11:56 | Outpatient (REF) | payer OTHER, SELFPAY ==
[2024-08-12 13:18] LABS: % Eosinophils 2.1 % (0-6); % Immature Granulocytes 0.6 % (0-0.5); % Monocytes 14.4 % (1.7-9.3); % Neutrophils 58.9 % (42.2-75.2); Absolute Eosinophils 0.1 10^3/uL (0-0.7); Absolute Lymphocytes 0.8 10^3/uL (1.2-3.4); Absolute Monocytes 0.5 10^3/uL (0.1-0.6); Hematocrit 34.6 % (37.0-47.0); Hemoglobin 11.1 g/dL (12.0-16.0); Mean Corp Hgb Conc. 32.1 g/dL (33.0-37.0); Mean Corpuscular Hgb 30.2 pg (27.0-31.0); Mean Corpuscular Volume 94.3 fL (81.0-99.0); Mean Platelet Volume 9.5 fL (7.4-10.4); Nucleated Red Blood Cells % 0 %; Platelet Count 271 10^3/uL (130-400); Red Blood Cell Count 3.67 10^6/uL (4.20-5.40); Red Cell Dist. Width 13.5 % (11.5-14.5); White Blood Cell Count 3.3 10^3/uL (4.8-10.8)
[2024-08-12 14:02] LABS: ALT (SGPT) 20 U/L (0-35); AST (SGOT) 18 U/L (14-36); Albumin 4.7 g/dl (3.5-5.0); Alkaline Phosphatase 82 U/L (38-126); Blood Urea Nitrogen 11 mg/dl (7-17); Calcium 9.9 mg/dl (8.4-10.2); Carbon Dioxide 28 mmol/L (22-30); Chloride 103 mmol/L (98-107); Glucose 104 mg/dl (70-99); Potassium 4.1 mmol/L (3.5-5.1); Sodium 141 mmol/L (135-145); Total Bilirubin 1.4 mg/dl (0.2-1.3); Total Protein 7.2 g/dl (6.3-8.2); eGFR > 60.00
== END ==
LOC: REG 11:56
PROVIDERS: ATTENDING PHYSICIAN Internal Medicine Hematology & Oncology; FAMILY PHYSICIAN Family Medicine; REFERRING PHYSICIAN Internal Medicine Hematology & Oncology
DX: C90.00 Multiple myeloma not having achieved remission (principal); D70.9 Neutropenia, unspecified; R19.7 Diarrhea, unspecified; E87.6 Hypokalemia; D80.1 Nonfamilial hypogammaglobulinemia
CPT/HCPCS: 36415; 80053; 85025

== ENCOUNTER → 2024-08-24 11:53 | Outpatient (REF) | payer OTHER, SELFPAY ==
[2024-08-24 12:30] LABS: % Eosinophils 0.4 % (0-6); % Immature Granulocytes 0.4 % (0-0.5); % Lymphocytes 19.3 % (20.5-51.1); % Neutrophils 64.9 % (42.2-75.2); Absolute Lymphocytes 0.5 10^3/uL (1.2-3.4); Absolute Monocytes 0.4 10^3/uL (0.1-0.6); Absolute Neutrophils 1.8 10^3/uL (1.4-6.5); Hematocrit 32.1 % (37.0-47.0); Hemoglobin 10.2 g/dL (12.0-16.0); Mean Corp Hgb Conc. 31.8 g/dL (33.0-37.0); Mean Corpuscular Hgb 29.7 pg (27.0-31.0); Mean Corpuscular Volume 93.3 fL (81.0-99.0); Mean Platelet Volume 10.2 fL (7.4-10.4); Nucleated Red Blood Cells % 0 %; Platelet Count 185 10^3/uL (130-400); Red Blood Cell Count 3.44 10^6/uL (4.20-5.40); Red Cell Dist. Width 13.8 % (11.5-14.5); White Blood Cell Count 2.7 10^3/uL (4.8-10.8)
[2024-08-24 13:09] LABS: ALT (SGPT) 17 U/L (0-35); AST (SGOT) 15 U/L (14-36); Albumin 4.6 g/dl (3.5-5.0); Alkaline Phosphatase 80 U/L (38-126); Blood Urea Nitrogen 10 mg/dl (7-17); Calcium 9.5 mg/dl (8.4-10.2); Carbon Dioxide 27 mmol/L (22-30); Chloride 104 mmol/L (98-107); Glucose 107 mg/dl (70-99); Potassium 4.2 mmol/L (3.5-5.1); Sodium 141 mmol/L (135-145); Total Bilirubin 1.6 mg/dl (0.2-1.3); Total Protein 6.9 g/dl (6.3-8.2); eGFR > 60.00
== END ==
LOC: REG 11:53
PROVIDERS: ATTENDING PHYSICIAN Internal Medicine Hematology & Oncology; FAMILY PHYSICIAN Family Medicine; REFERRING PHYSICIAN Internal Medicine Hematology & Oncology
DX: C90.00 Multiple myeloma not having achieved remission (principal); D70.9 Neutropenia, unspecified; R19.7 Diarrhea, unspecified; E87.6 Hypokalemia; D80.1 Nonfamilial hypogammaglobulinemia
CPT/HCPCS: 36415; 80053; 85025

== ENCOUNTER → 2024-09-02 12:07 | Outpatient (REF) | payer OTHER, SELFPAY ==
[2024-09-02 12:37] LABS: % Basophils 0.4 % (0-2); % Eosinophils 0.4 % (0-6); % Immature Granulocytes 0.4 % (0-0.5); % Lymphocytes 21.2 % (20.5-51.1); % Monocytes 18.2 % (1.7-9.3); % Neutrophils 59.4 % (42.2-75.2); Absolute Lymphocytes 0.6 10^3/uL (1.2-3.4); Absolute Monocytes 0.5 10^3/uL (0.1-0.6); Absolute Neutrophils 1.6 10^3/uL (1.4-6.5); Hematocrit 30.8 % (37.0-47.0); Hemoglobin 9.8 g/dL (12.0-16.0); Mean Corp Hgb Conc. 31.8 g/dL (33.0-37.0); Mean Corpuscular Hgb 29.1 pg (27.0-31.0); Mean Corpuscular Volume 91.4 fL (81.0-99.0); Mean Platelet Volume 10.7 fL (7.4-10.4); Nucleated Red Blood Cells % 0 %; Platelet Count 152 10^3/uL (130-400); Red Blood Cell Count 3.37 10^6/uL (4.20-5.40); White Blood Cell Count 2.6 10^3/uL (4.8-10.8)
[2024-09-02 12:57] LABS: ALT (SGPT) 17 U/L (0-35); AST (SGOT) 16 U/L (14-36); Albumin 3.9 g/dl (3.5-5.0); Alkaline Phosphatase 74 U/L (38-126); Blood Urea Nitrogen 11 mg/dl (7-17); Calcium 9.6 mg/dl (8.4-10.2); Carbon Dioxide 30 mmol/L (22-30); Chloride 105 mmol/L (98-107); Glucose 98 mg/dl (70-99); Potassium 4.2 mmol/L (3.5-5.1); Sodium 141 mmol/L (135-145); Total Bilirubin 1.3 mg/dl (0.2-1.3); Total Protein 6.8 g/dl (6.3-8.2); eGFR > 60.00
== END ==
LOC: REG 12:07
PROVIDERS: ATTENDING PHYSICIAN Internal Medicine Hematology & Oncology; FAMILY PHYSICIAN Family Medicine; OTHER PHYSICIAN Internal Medicine Hematology & Oncology
DX: C90.00 Multiple myeloma not having achieved remission (principal); D70.9 Neutropenia, unspecified; R19.7 Diarrhea, unspecified; E87.6 Hypokalemia; D80.1 Nonfamilial hypogammaglobulinemia
CPT/HCPCS: 36415; 80053; 85025

== ENCOUNTER → 2024-09-09 12:11 | Outpatient (REF) | payer OTHER, SELFPAY ==
[2024-09-09 12:51] LABS: % Eosinophils 0.3 % (0-6); % Immature Granulocytes 0.3 % (0-0.5); % Lymphocytes 14.3 % (20.5-51.1); % Monocytes 17.4 % (1.7-9.3); % Neutrophils 67.7 % (42.2-75.2); Absolute Lymphocytes 0.5 10^3/uL (1.2-3.4); Absolute Monocytes 0.6 10^3/uL (0.1-0.6); Absolute Neutrophils 2.2 10^3/uL (1.4-6.5); Hematocrit 33.8 % (37.0-47.0); Hemoglobin 10.7 g/dL (12.0-16.0); Mean Corp Hgb Conc. 31.7 g/dL (33.0-37.0); Mean Corpuscular Hgb 28.5 pg (27.0-31.0); Mean Corpuscular Volume 90.1 fL (81.0-99.0); Mean Platelet Volume 11.7 fL (7.4-10.4); Nucleated Red Blood Cells % 0 %; Platelet Count 117 10^3/uL (130-400); Red Blood Cell Count 3.75 10^6/uL (4.20-5.40); Red Cell Dist. Width 14.1 % (11.5-14.5); White Blood Cell Count 3.2 10^3/uL (4.8-10.8)
[2024-09-09 13:01] LABS: ALT (SGPT) 16 U/L (0-35); AST (SGOT) 15 U/L (14-36); Albumin 4.1 g/dl (3.5-5.0); Alkaline Phosphatase 70 U/L (38-126); Blood Urea Nitrogen 8 mg/dl (7-17); Calcium 9.5 mg/dl (8.4-10.2); Carbon Dioxide 30 mmol/L (22-30); Chloride 104 mmol/L (98-107); Glucose 102 mg/dl (70-99); Sodium 141 mmol/L (135-145); Total Bilirubin 1.7 mg/dl (0.2-1.3); eGFR > 60.00
[2024-09-12 03:05] LABS: Beta-2-Microglobulin 2.6 mg/L (<=3.0)
== END ==
LOC: REG 12:11
PROVIDERS: ATTENDING PHYSICIAN Internal Medicine Hematology & Oncology; FAMILY PHYSICIAN Family Medicine; REFERRING PHYSICIAN Internal Medicine Hematology & Oncology
DX: C90.00 Multiple myeloma not having achieved remission (principal); D70.9 Neutropenia, unspecified; R19.7 Diarrhea, unspecified; E87.6 Hypokalemia; D80.1 Nonfamilial hypogammaglobulinemia
CPT/HCPCS: 36415; 80053; 82232; 82784; 83521; 84155; 84165; 85025; 86334

== ENCOUNTER → 2024-09-16 09:02 | Outpatient (REF) | payer OTHER, SELFPAY ==
[2024-09-16 09:59] LABS: % Basophils 0.3 % (0-2); % Eosinophils 1.6 % (0-6); % Immature Granulocytes 0.3 % (0-0.5); % Monocytes 16.4 % (1.7-9.3); % Neutrophils 64.4 % (42.2-75.2); Absolute Eosinophils 0.1 10^3/uL (0-0.7); Absolute Lymphocytes 0.5 10^3/uL (1.2-3.4); Absolute Monocytes 0.5 10^3/uL (0.1-0.6); Hematocrit 32.5 % (37.0-47.0); Hemoglobin 10.2 g/dL (12.0-16.0); Mean Corp Hgb Conc. 31.4 g/dL (33.0-37.0); Mean Corpuscular Hgb 28.1 pg (27.0-31.0); Mean Corpuscular Volume 89.5 fL (81.0-99.0); Nucleated Red Blood Cells % 0 %; Platelet Count 257 10^3/uL (130-400); Red Blood Cell Count 3.63 10^6/uL (4.20-5.40); Red Cell Dist. Width 14.6 % (11.5-14.5); White Blood Cell Count 3.1 10^3/uL (4.8-10.8)
[2024-09-16 10:24] LABS: ALT (SGPT) 16 U/L (0-35); AST (SGOT) 16 U/L (14-36); Alkaline Phosphatase 60 U/L (38-126); Blood Urea Nitrogen 11 mg/dl (7-17); Calcium 9.4 mg/dl (8.4-10.2); Carbon Dioxide 30 mmol/L (22-30); Chloride 107 mmol/L (98-107); Glucose 105 mg/dl (70-99); Potassium 4.4 mmol/L (3.5-5.1); Sodium 142 mmol/L (135-145); Total Bilirubin 1.5 mg/dl (0.2-1.3); Total Protein 6.5 g/dl (6.3-8.2); eGFR > 60.00
== END ==
LOC: REG 09:02
PROVIDERS: ATTENDING PHYSICIAN Internal Medicine Hematology & Oncology; FAMILY PHYSICIAN Family Medicine; OTHER PHYSICIAN Internal Medicine Hematology & Oncology
DX: C90.00 Multiple myeloma not having achieved remission (principal); D70.9 Neutropenia, unspecified; R19.7 Diarrhea, unspecified; E87.6 Hypokalemia; D80.1 Nonfamilial hypogammaglobulinemia
CPT/HCPCS: 36415; 80053; 85025

== ENCOUNTER → 2024-09-23 12:13 | Outpatient (REF) | payer OTHER, SELFPAY ==
[2024-09-23 13:06] LABS: % Eosinophils 0.5 % (0-6); % Immature Granulocytes 0.5 % (0-0.5); % Monocytes 17.1 % (1.7-9.3); % Neutrophils 65.9 % (42.2-75.2); Absolute Lymphocytes 0.6 10^3/uL (1.2-3.4); Absolute Monocytes 0.6 10^3/uL (0.1-0.6); Absolute Neutrophils 2.5 10^3/uL (1.4-6.5); Hematocrit 31.2 % (37.0-47.0); Hemoglobin 9.8 g/dL (12.0-16.0); Mean Corp Hgb Conc. 31.4 g/dL (33.0-37.0); Mean Corpuscular Hgb 28.2 pg (27.0-31.0); Mean Corpuscular Volume 89.9 fL (81.0-99.0); Nucleated Red Blood Cells % 0 %; Platelet Count 104 10^3/uL (130-400); Red Blood Cell Count 3.47 10^6/uL (4.20-5.40); Red Cell Dist. Width 14.6 % (11.5-14.5); White Blood Cell Count 3.8 10^3/uL (4.8-10.8)
[2024-09-23 13:21] LABS: ALT (SGPT) 16 U/L (0-35); AST (SGOT) 15 U/L (14-36); Albumin 4.3 g/dl (3.5-5.0); Alkaline Phosphatase 57 U/L (38-126); Blood Urea Nitrogen 12 mg/dl (7-17); Calcium 9.8 mg/dl (8.4-10.2); Carbon Dioxide 29 mmol/L (22-30); Chloride 105 mmol/L (98-107); Glucose 105 mg/dl (70-99); Potassium 4.5 mmol/L (3.5-5.1); Sodium 141 mmol/L (135-145); Total Bilirubin 1.6 mg/dl (0.2-1.3); Total Protein 6.7 g/dl (6.3-8.2); eGFR > 60.00
== END ==
LOC: REG 12:13
PROVIDERS: ATTENDING PHYSICIAN Internal Medicine Hematology & Oncology; FAMILY PHYSICIAN Family Medicine; OTHER PHYSICIAN Internal Medicine Hematology & Oncology
DX: C90.00 Multiple myeloma not having achieved remission (principal); D70.9 Neutropenia, unspecified; R19.7 Diarrhea, unspecified; E87.6 Hypokalemia; D80.1 Nonfamilial hypogammaglobulinemia
CPT/HCPCS: 36415; 80053; 85025

== ENCOUNTER → 2024-09-30 09:25 | Outpatient (REF) | payer OTHER, SELFPAY ==
[2024-09-30 10:18] LABS: % Immature Granulocytes 0.7 % (0-0.5); % Lymphocytes 13.6 % (20.5-51.1); % Monocytes 17.9 % (1.7-9.3); % Neutrophils 66.8 % (42.2-75.2); Absolute Lymphocytes 0.4 10^3/uL (1.2-3.4); Absolute Monocytes 0.5 10^3/uL (0.1-0.6); Hematocrit 31.1 % (37.0-47.0); Hemoglobin 9.7 g/dL (12.0-16.0); Mean Corp Hgb Conc. 31.2 g/dL (33.0-37.0); Mean Corpuscular Hgb 28.1 pg (27.0-31.0); Mean Corpuscular Volume 90.1 fL (81.0-99.0); Nucleated Red Blood Cells % 0 %; Red Blood Cell Count 3.45 10^6/uL (4.20-5.40); Red Cell Dist. Width 15.3 % (11.5-14.5)
[2024-09-30 10:42] LABS: Mean Platelet Volume 12.2 fL (7.4-10.4); Platelet Count 90 10^3/uL (130-400)
[2024-09-30 10:50] LABS: ALT (SGPT) 14 U/L (0-35); AST (SGOT) 14 U/L (14-36); Albumin 4.2 g/dl (3.5-5.0); Alkaline Phosphatase 56 U/L (38-126); Blood Urea Nitrogen 11 mg/dl (7-17); Calcium 9.7 mg/dl (8.4-10.2); Carbon Dioxide 26 mmol/L (22-30); Chloride 106 mmol/L (98-107); Glucose 100 mg/dl (70-99); Potassium 4.4 mmol/L (3.5-5.1); Sodium 141 mmol/L (135-145); Total Bilirubin 1.9 mg/dl (0.2-1.3); Total Protein 6.5 g/dl (6.3-8.2); eGFR > 60.00
== END ==
LOC: REG 09:25
PROVIDERS: ATTENDING PHYSICIAN Internal Medicine Hematology & Oncology; FAMILY PHYSICIAN Family Medicine; OTHER PHYSICIAN Internal Medicine Hematology & Oncology
DX: C90.00 Multiple myeloma not having achieved remission (principal); D70.9 Neutropenia, unspecified; R19.7 Diarrhea, unspecified; E87.6 Hypokalemia; D80.1 Nonfamilial hypogammaglobulinemia
CPT/HCPCS: 36415; 80053; 85025

== ENCOUNTER → 2024-10-07 13:35 | Outpatient (REF) | payer OTHER, SELFPAY ==
[2024-10-07 14:19] LABS: % Basophils 0.3 % (0-2); % Eosinophils 0.8 % (0-6); % Immature Granulocytes 0.5 % (0-0.5); % Lymphocytes 17.2 % (20.5-51.1); % Monocytes 18.5 % (1.7-9.3); % Neutrophils 62.7 % (42.2-75.2); Absolute Lymphocytes 0.7 10^3/uL (1.2-3.4); Absolute Monocytes 0.7 10^3/uL (0.1-0.6); Absolute Neutrophils 2.4 10^3/uL (1.4-6.5); Hematocrit 33.6 % (37.0-47.0); Hemoglobin 10.7 g/dL (12.0-16.0); Mean Corp Hgb Conc. 31.8 g/dL (33.0-37.0); Mean Corpuscular Hgb 28.4 pg (27.0-31.0); Mean Corpuscular Volume 89.1 fL (81.0-99.0); Nucleated Red Blood Cells % 0 %; Platelet Count 121 10^3/uL (130-400); Red Blood Cell Count 3.77 10^6/uL (4.20-5.40); Red Cell Dist. Width 15.7 % (11.5-14.5); White Blood Cell Count 3.8 10^3/uL (4.8-10.8)
[2024-10-07 15:29] LABS: ALT (SGPT) 20 U/L (0-35); AST (SGOT) 17 U/L (14-36); Albumin 4.5 g/dl (3.5-5.0); Alkaline Phosphatase 60 U/L (38-126); Blood Urea Nitrogen 15 mg/dl (7-17); Calcium 9.7 mg/dl (8.4-10.2); Carbon Dioxide 25 mmol/L (22-30); Chloride 106 mmol/L (98-107); Glucose 114 mg/dl (70-99); Potassium 4.3 mmol/L (3.5-5.1); Sodium 141 mmol/L (135-145); Total Bilirubin 1.8 mg/dl (0.2-1.3); Total Protein 6.9 g/dl (6.3-8.2); eGFR > 60.00
== END ==
LOC: REG 13:35
PROVIDERS: ATTENDING PHYSICIAN Internal Medicine Hematology & Oncology; FAMILY PHYSICIAN Family Medicine; REFERRING PHYSICIAN Internal Medicine Hematology & Oncology
DX: C90.00 Multiple myeloma not having achieved remission (principal); D70.9 Neutropenia, unspecified; R19.7 Diarrhea, unspecified; E87.6 Hypokalemia; D80.1 Nonfamilial hypogammaglobulinemia
CPT/HCPCS: 36415; 80053; 82784; 83521; 84155; 84165; 85025; 86334

== ENCOUNTER → 2024-10-14 11:21 | Outpatient (REF) | payer OTHER, SELFPAY ==
[2024-10-14 11:41] LABS: % Basophils 0.3 % (0-2); % Immature Granulocytes 0.5 % (0-0.5); % Lymphocytes 22.1 % (20.5-51.1); % Monocytes 14.8 % (1.7-9.3); % Neutrophils 61.3 % (42.2-75.2); Absolute Lymphocytes 0.9 10^3/uL (1.2-3.4); Absolute Monocytes 0.6 10^3/uL (0.1-0.6); Absolute Neutrophils 2.4 10^3/uL (1.4-6.5); Hematocrit 33.5 % (37.0-47.0); Hemoglobin 10.6 g/dL (12.0-16.0); Mean Corp Hgb Conc. 31.6 g/dL (33.0-37.0); Mean Corpuscular Hgb 28.3 pg (27.0-31.0); Mean Corpuscular Volume 89.3 fL (81.0-99.0); Mean Platelet Volume 9.8 fL (7.4-10.4); Nucleated Red Blood Cells % 0 %; Platelet Count 268 10^3/uL (130-400); Red Blood Cell Count 3.75 10^6/uL (4.20-5.40); Red Cell Dist. Width 15.5 % (11.5-14.5); White Blood Cell Count 3.9 10^3/uL (4.8-10.8)
[2024-10-14 13:05] LABS: ALT (SGPT) 15 U/L (0-35); AST (SGOT) 18 U/L (14-36); Albumin 4.5 g/dl (3.5-5.0); Alkaline Phosphatase 69 U/L (38-126); Blood Urea Nitrogen 14 mg/dl (7-17); Calcium 9.8 mg/dl (8.4-10.2); Carbon Dioxide 28 mmol/L (22-30); Chloride 107 mmol/L (98-107); Glucose 103 mg/dl (70-99); Potassium 4.7 mmol/L (3.5-5.1); Sodium 142 mmol/L (135-145); Total Bilirubin 1.7 mg/dl (0.2-1.3); Total Protein 7.6 g/dl (6.3-8.2); eGFR > 60.00
== END ==
LOC: REG 11:21
PROVIDERS: ATTENDING PHYSICIAN Internal Medicine Hematology & Oncology; FAMILY PHYSICIAN Family Medicine; OTHER PHYSICIAN Internal Medicine Hematology & Oncology
DX: C90.00 Multiple myeloma not having achieved remission (principal); D70.9 Neutropenia, unspecified; R19.7 Diarrhea, unspecified; E87.6 Hypokalemia; D80.1 Nonfamilial hypogammaglobulinemia
CPT/HCPCS: 36415; 80053; 85025

== ENCOUNTER → 2024-10-21 10:48 | Outpatient (REF) | payer OTHER, SELFPAY ==
[2024-10-21 11:59] LABS: % Eosinophils 0.7 % (0-6); % Immature Granulocytes 0.2 % (0-0.5); % Monocytes 17.9 % (1.7-9.3); % Neutrophils 59.2 % (42.2-75.2); Absolute Lymphocytes 0.9 10^3/uL (1.2-3.4); Absolute Monocytes 0.8 10^3/uL (0.1-0.6); Absolute Neutrophils 2.5 10^3/uL (1.4-6.5); Hematocrit 32.8 % (37.0-47.0); Hemoglobin 10.4 g/dL (12.0-16.0); Mean Corp Hgb Conc. 31.7 g/dL (33.0-37.0); Mean Corpuscular Hgb 27.8 pg (27.0-31.0); Mean Corpuscular Volume 87.7 fL (81.0-99.0); Mean Platelet Volume 10.2 fL (7.4-10.4); Nucleated Red Blood Cells % 0 %; Platelet Count 137 10^3/uL (130-400); Red Blood Cell Count 3.74 10^6/uL (4.20-5.40); Red Cell Dist. Width 15.1 % (11.5-14.5); White Blood Cell Count 4.2 10^3/uL (4.8-10.8)
[2024-10-21 12:45] LABS: ALT (SGPT) 13 U/L (0-35); AST (SGOT) 15 U/L (14-36); Albumin 4.3 g/dl (3.5-5.0); Alkaline Phosphatase 63 U/L (38-126); Blood Urea Nitrogen 17 mg/dl (7-17); Calcium 9.8 mg/dl (8.4-10.2); Carbon Dioxide 28 mmol/L (22-30); Chloride 104 mmol/L (98-107); Glucose 102 mg/dl (70-99); Potassium 4.7 mmol/L (3.5-5.1); Sodium 140 mmol/L (135-145); Total Bilirubin 1.5 mg/dl (0.2-1.3); Total Protein 6.9 g/dl (6.3-8.2); eGFR > 60.00
== END ==
LOC: REG 10:48
PROVIDERS: ATTENDING PHYSICIAN Internal Medicine Hematology & Oncology; FAMILY PHYSICIAN Family Medicine; REFERRING PHYSICIAN Internal Medicine Hematology & Oncology
DX: C90.00 Multiple myeloma not having achieved remission (principal); D70.9 Neutropenia, unspecified; R19.7 Diarrhea, unspecified; E87.6 Hypokalemia; D80.1 Nonfamilial hypogammaglobulinemia
CPT/HCPCS: 36415; 80053; 85025

== ENCOUNTER → 2024-10-28 11:42 | Outpatient (REF) | payer OTHER, SELFPAY ==
[2024-10-28 13:20] LABS: % Basophils 0.3 % (0-2); % Eosinophils 1.4 % (0-6); % Immature Granulocytes 0.6 % (0-0.5); % Lymphocytes 18.8 % (20.5-51.1); % Monocytes 17.7 % (1.7-9.3); % Neutrophils 61.2 % (42.2-75.2); Absolute Eosinophils 0.1 10^3/uL (0-0.7); Absolute Lymphocytes 0.7 10^3/uL (1.2-3.4); Absolute Monocytes 0.6 10^3/uL (0.1-0.6); Absolute Neutrophils 2.2 10^3/uL (1.4-6.5); Hematocrit 33.1 % (37.0-47.0); Hemoglobin 10.5 g/dL (12.0-16.0); Mean Corp Hgb Conc. 31.7 g/dL (33.0-37.0); Mean Corpuscular Hgb 28.2 pg (27.0-31.0); Mean Corpuscular Volume 88.7 fL (81.0-99.0); Mean Platelet Volume 12.2 fL (7.4-10.4); Nucleated Red Blood Cells % 0 %; Platelet Count 121 10^3/uL (130-400); Red Blood Cell Count 3.73 10^6/uL (4.20-5.40); Red Cell Dist. Width 15.4 % (11.5-14.5); White Blood Cell Count 3.6 10^3/uL (4.8-10.8)
[2024-10-28 13:49] LABS: ALT (SGPT) < 10 U/L (0-35); AST (SGOT) 14 U/L (14-36); Albumin 4.4 g/dl (3.5-5.0); Alkaline Phosphatase 56 U/L (38-126); Blood Urea Nitrogen 20 mg/dl (7-17); Carbon Dioxide 28 mmol/L (22-30); Chloride 104 mmol/L (98-107); Glucose 93 mg/dl (70-99); Potassium 4.6 mmol/L (3.5-5.1); Sodium 140 mmol/L (135-145); Total Bilirubin 1.5 mg/dl (0.2-1.3); eGFR > 60.00
== END ==
LOC: REG 11:42
PROVIDERS: ATTENDING PHYSICIAN Internal Medicine Hematology & Oncology; FAMILY PHYSICIAN Family Medicine; REFERRING PHYSICIAN Internal Medicine Hematology & Oncology
DX: C90.00 Multiple myeloma not having achieved remission (principal); D70.9 Neutropenia, unspecified; R19.7 Diarrhea, unspecified; E87.6 Hypokalemia; D80.1 Nonfamilial hypogammaglobulinemia
CPT/HCPCS: 36415; 80053; 85025

== ENCOUNTER → 2024-11-26 09:49 | Outpatient (REF) | payer OTHER, SELFPAY ==
[2024-11-26 11:47] LABS: Hematocrit 28.6 % (37.0-47.0); Hemoglobin 8.9 g/dL (12.0-16.0); Mean Corp Hgb Conc. 31.1 g/dL (33.0-37.0); Mean Corpuscular Volume 90.5 fL (81.0-99.0); Nucleated Red Blood Cells % 0 %; Platelet Count 275 10^3/uL (130-400); Red Cell Dist. Width 15.0 % (11.5-14.5)
[2024-11-26 12:16] LABS: ALT (SGPT) < 10 U/L (0-35); AST (SGOT) 13 U/L (14-36); Albumin 3.9 g/dl (3.5-5.0); Alkaline Phosphatase 66 U/L (38-126); Blood Urea Nitrogen 16 mg/dl (7-17); Calcium 9.2 mg/dl (8.4-10.2); Carbon Dioxide 29 mmol/L (22-30); Chloride 102 mmol/L (98-107); Glucose 116 mg/dl (70-99); Potassium 4.6 mmol/L (3.5-5.1); Sodium 137 mmol/L (135-145); Total Protein 6.4 g/dl (6.3-8.2); eGFR > 60.00
== END ==
LOC: REG 09:49
PROVIDERS: ATTENDING PHYSICIAN Internal Medicine Hematology & Oncology; FAMILY PHYSICIAN Family Medicine; OTHER PHYSICIAN Internal Medicine Hematology & Oncology; REFERRING PHYSICIAN Internal Medicine Hematology & Oncology
DX: C90.00 Multiple myeloma not having achieved remission (principal)
CPT/HCPCS: 36415; 80053; 85025

== ENCOUNTER → 2024-12-03 11:08 | Outpatient (REF) | payer OTHER, SELFPAY ==
[2024-12-03 12:03] LABS: Hematocrit 30.7 % (37.0-47.0); Hemoglobin 9.5 g/dL (12.0-16.0); Mean Corp Hgb Conc. 30.9 g/dL (33.0-37.0); Mean Corpuscular Volume 89.5 fL (81.0-99.0); Nucleated Red Blood Cells % 0 %; Platelet Count 367 10^3/uL (130-400); Red Cell Dist. Width 15.0 % (11.5-14.5)
[2024-12-03 12:23] LABS: AST (SGOT) 11 U/L (14-36); Albumin 4.5 g/dl (3.5-5.0); Blood Urea Nitrogen 17 mg/dl (7-17); Carbon Dioxide 28 mmol/L (22-30); Glucose 105 mg/dl (70-99); Total Protein 6.9 g/dl (6.3-8.2); eGFR > 60.00
[2024-12-03 12:33] LABS: ALT (SGPT) < 10 U/L (0-35); Alkaline Phosphatase 70 U/L (38-126); Calcium 9.2 mg/dl (8.4-10.2); Chloride 101 mmol/L (98-107); Potassium 4.7 mmol/L (3.5-5.1); Sodium 135 mmol/L (135-145)
== END ==
LOC: REG 11:08
PROVIDERS: ATTENDING PHYSICIAN Internal Medicine Hematology & Oncology; FAMILY PHYSICIAN Internal Medicine Hematology & Oncology
DX: C90.00 Multiple myeloma not having achieved remission (principal); D70.9 Neutropenia, unspecified; R19.7 Diarrhea, unspecified; E87.6 Hypokalemia; D80.1 Nonfamilial hypogammaglobulinemia
CPT/HCPCS: 36415; 80053; 85025

== ENCOUNTER → 2024-12-10 12:05 | Outpatient (REF) | payer OTHER, SELFPAY ==
[2024-12-10 13:05] LABS: Hematocrit 30.2 % (37.0-47.0); Hemoglobin 9.4 g/dL (12.0-16.0); Mean Corp Hgb Conc. 31.1 g/dL (33.0-37.0); Mean Corpuscular Volume 89.3 fL (81.0-99.0); Nucleated Red Blood Cells % 0 %; Platelet Count 261 10^3/uL (130-400); Red Cell Dist. Width 14.7 % (11.5-14.5)
[2024-12-10 13:37] LABS: ALT (SGPT) < 10 U/L (0-35); AST (SGOT) 12 U/L (14-36); Albumin 3.7 g/dl (3.5-5.0); Alkaline Phosphatase 82 U/L (38-126); Blood Urea Nitrogen 18 mg/dl (7-17); Calcium 8.6 mg/dl (8.4-10.2); Carbon Dioxide 29 mmol/L (22-30); Chloride 101 mmol/L (98-107); Glucose 91 mg/dl (70-99); Potassium 4.2 mmol/L (3.5-5.1); Sodium 133 mmol/L (135-145); Total Protein 5.8 g/dl (6.3-8.2); eGFR > 60.00
== END ==
LOC: REG 12:05
PROVIDERS: ATTENDING PHYSICIAN Internal Medicine Hematology & Oncology; FAMILY PHYSICIAN Family Medicine; REFERRING PHYSICIAN Internal Medicine Hematology & Oncology
DX: C90.00 Multiple myeloma not having achieved remission (principal); D70.9 Neutropenia, unspecified; R19.7 Diarrhea, unspecified; E87.6 Hypokalemia; D80.1 Nonfamilial hypogammaglobulinemia
CPT/HCPCS: 36415; 80053; 85025

== ENCOUNTER → 2024-12-17 11:31 | Outpatient (REF) | payer OTHER, SELFPAY ==
[2024-12-17 12:52] LABS: Hematocrit 32.2 % (37.0-47.0); Hemoglobin 9.6 g/dL (12.0-16.0); Mean Corp Hgb Conc. 29.8 g/dL (33.0-37.0); Mean Corpuscular Volume 91.7 fL (81.0-99.0); Platelet Count 207 10^3/uL (130-400); Red Cell Dist. Width 15.1 % (11.5-14.5)
[2024-12-17 13:39] LABS: ALT (SGPT) < 10 U/L (0-35); AST (SGOT) 19 U/L (14-36); Albumin 3.9 g/dl (3.5-5.0); Alkaline Phosphatase 89 U/L (38-126); Blood Urea Nitrogen 13 mg/dl (7-17); Calcium 9.1 mg/dl (8.4-10.2); Carbon Dioxide 29 mmol/L (22-30); Chloride 103 mmol/L (98-107); Glucose 87 mg/dl (70-99); Potassium 4.9 mmol/L (3.5-5.1); Sodium 136 mmol/L (135-145); Total Protein 6.5 g/dl (6.3-8.2); eGFR > 60.00
[2024-12-17 13:51] LABS: Absolute Neutrophils -Man Diff 2.2 10^3/uL (1.4-6.5)
[2024-12-17 13:52] LABS: Normal RBC Morphology Yes; Platelets Checked Yes; Total Cells Counted 100
== END ==
LOC: REG 11:31
PROVIDERS: ATTENDING PHYSICIAN Internal Medicine Hematology & Oncology; FAMILY PHYSICIAN Family Medicine; OTHER PHYSICIAN Internal Medicine Hematology & Oncology
DX: C90.00 Multiple myeloma not having achieved remission (principal); D70.9 Neutropenia, unspecified; R19.7 Diarrhea, unspecified; E87.6 Hypokalemia; D80.1 Nonfamilial hypogammaglobulinemia
CPT/HCPCS: 36415; 80053; 85025

== ENCOUNTER → 2024-12-24 10:23 | Outpatient (REF) | payer OTHER, SELFPAY ==
[2024-12-24 10:50] LABS: Hematocrit 31.1 % (37.0-47.0); Hemoglobin 9.4 g/dL (12.0-16.0); Mean Corp Hgb Conc. 30.2 g/dL (33.0-37.0); Mean Corpuscular Volume 90.4 fL (81.0-99.0); Platelet Count 203 10^3/uL (130-400); Red Cell Dist. Width 14.9 % (11.5-14.5)
[2024-12-24 11:15] LABS: ALT (SGPT) < 10 U/L (0-35); AST (SGOT) 22 U/L (14-36); Albumin 4.1 g/dl (3.5-5.0); Alkaline Phosphatase 102 U/L (38-126); Blood Urea Nitrogen 13 mg/dl (7-17); Calcium 9.0 mg/dl (8.4-10.2); Carbon Dioxide 28 mmol/L (22-30); Chloride 104 mmol/L (98-107); Glucose 95 mg/dl (70-99); Potassium 4.6 mmol/L (3.5-5.1); Sodium 136 mmol/L (135-145); Total Protein 6.5 g/dl (6.3-8.2); eGFR > 60.00
[2024-12-24 11:21] LABS: Absolute Neutrophils -Man Diff 2.3 10^3/uL (1.4-6.5); Anisocytosis Slight; Hypochromasia Slight; Normal RBC Morphology No; Ovalocytes Slight; Platelets Checked Yes; Total Cells Counted 100
== END ==
LOC: REG 10:23
PROVIDERS: ATTENDING PHYSICIAN Internal Medicine Hematology & Oncology; FAMILY PHYSICIAN Family Medicine; OTHER PHYSICIAN Internal Medicine Hematology & Oncology
DX: E87.6 Hypokalemia (principal); D80.1 Nonfamilial hypogammaglobulinemia
CPT/HCPCS: 36415; 80053; 85025

== ENCOUNTER → 2024-12-31 11:34 | Outpatient (REF) | payer OTHER, SELFPAY ==
[2024-12-31 12:07] LABS: Hematocrit 30.0 % (37.0-47.0); Hemoglobin 8.8 g/dL (12.0-16.0); Mean Corp Hgb Conc. 29.3 g/dL (33.0-37.0); Mean Corpuscular Volume 88.8 fL (81.0-99.0); Platelet Count 241 10^3/uL (130-400); Red Cell Dist. Width 15.1 % (11.5-14.5)
[2024-12-31 12:36] LABS: ALT (SGPT) < 10 U/L (0-35); AST (SGOT) 19 U/L (14-36); Albumin 4.1 g/dl (3.5-5.0); Alkaline Phosphatase 117 U/L (38-126); Blood Urea Nitrogen 10 mg/dl (7-17); Calcium 8.7 mg/dl (8.4-10.2); Carbon Dioxide 28 mmol/L (22-30); Chloride 106 mmol/L (98-107); Glucose 94 mg/dl (70-99); Potassium 4.6 mmol/L (3.5-5.1); Sodium 137 mmol/L (135-145); Total Protein 6.3 g/dl (6.3-8.2); eGFR > 60.00
[2024-12-31 13:21] LABS: Absolute Neutrophils -Man Diff 3.0 10^3/uL (1.4-6.5)
[2024-12-31 13:22] LABS: Anisocytosis 1+; Normal RBC Morphology No; Platelets Checked Yes
[2024-12-31 13:23] LABS: Hypochromasia 1+; Ovalocytes Slight; Polychromasia Slight; Total Cells Counted 100
== END ==
LOC: REG 11:34
PROVIDERS: ATTENDING PHYSICIAN Internal Medicine Hematology & Oncology; FAMILY PHYSICIAN Family Medicine
DX: C90.00 Multiple myeloma not having achieved remission (principal); D70.9 Neutropenia, unspecified; R19.7 Diarrhea, unspecified; E87.6 Hypokalemia; D80.1 Nonfamilial hypogammaglobulinemia
CPT/HCPCS: 36415; 80053; 85025

== ENCOUNTER → 2025-01-07 10:42 | Outpatient (REF) | payer OTHER, SELFPAY ==
[2025-01-07 11:22] LABS: Hematocrit 30.8 % (37.0-47.0); Hemoglobin 9.1 g/dL (12.0-16.0); Mean Corp Hgb Conc. 29.5 g/dL (33.0-37.0); Mean Corpuscular Volume 87.3 fL (81.0-99.0); Platelet Count 276 10^3/uL (130-400); Red Cell Dist. Width 15.3 % (11.5-14.5)
[2025-01-07 11:52] LABS: ALT (SGPT) < 10 U/L (0-35); AST (SGOT) 15 U/L (14-36); Albumin 4.3 g/dl (3.5-5.0); Alkaline Phosphatase 112 U/L (38-126); Blood Urea Nitrogen 15 mg/dl (7-17); Calcium 9.2 mg/dl (8.4-10.2); Carbon Dioxide 27 mmol/L (22-30); Chloride 104 mmol/L (98-107); Glucose 88 mg/dl (70-99); Potassium 4.4 mmol/L (3.5-5.1); Sodium 138 mmol/L (135-145); Total Protein 6.3 g/dl (6.3-8.2); eGFR > 60.00
[2025-01-07 12:44] LABS: Absolute Neutrophils -Man Diff 3.6 10^3/uL (1.4-6.5)
[2025-01-07 12:45] LABS: Anisocytosis 1+; Hypochromasia 2+; Normal RBC Morphology No; Platelets Checked Yes; Polychromasia 1+; Target Cells 1+
[2025-01-07 12:46] LABS: Acanthocytes 1+; Ovalocytes 1+; Total Cells Counted 100
== END ==
LOC: REG 10:42
PROVIDERS: ATTENDING PHYSICIAN Internal Medicine Hematology & Oncology; FAMILY PHYSICIAN Family Medicine; OTHER PHYSICIAN Internal Medicine Hematology & Oncology
DX: C90.00 Multiple myeloma not having achieved remission (principal); D70.9 Neutropenia, unspecified; R19.7 Diarrhea, unspecified; E87.6 Hypokalemia; D80.1 Nonfamilial hypogammaglobulinemia
CPT/HCPCS: 36415; 80053; 85025

== ENCOUNTER → 2025-01-15 10:24 | Outpatient (REF) | payer OTHER, SELFPAY ==
[2025-01-15 11:57] LABS: Hematocrit 30.3 % (37.0-47.0); Hemoglobin 9.1 g/dL (12.0-16.0); Mean Corp Hgb Conc. 30.0 g/dL (33.0-37.0); Mean Corpuscular Volume 85.1 fL (81.0-99.0); Platelet Count 263 10^3/uL (130-400); Red Cell Dist. Width 15.3 % (11.5-14.5)
[2025-01-15 12:20] LABS: Absolute Neutrophils -Man Diff 2.6 10^3/uL (1.4-6.5); Anisocytosis Slight; Normal RBC Morphology No; Ovalocytes Slight; Platelets Checked Yes; Total Cells Counted 100
[2025-01-15 12:25] LABS: ALT (SGPT) < 10 U/L (0-35); AST (SGOT) 21 U/L (14-36); Albumin 4.1 g/dl (3.5-5.0); Alkaline Phosphatase 96 U/L (38-126); Blood Urea Nitrogen 13 mg/dl (7-17); Calcium 9.6 mg/dl (8.4-10.2); Carbon Dioxide 28 mmol/L (22-30); Chloride 105 mmol/L (98-107); Glucose 91 mg/dl (70-99); Potassium 5.0 mmol/L (3.5-5.1); Sodium 137 mmol/L (135-145); Total Protein 6.8 g/dl (6.3-8.2); eGFR > 60.00
== END ==
LOC: REG 10:24
PROVIDERS: ATTENDING PHYSICIAN Internal Medicine Hematology & Oncology; FAMILY PHYSICIAN Family Medicine
DX: C90.00 Multiple myeloma not having achieved remission (principal); D70.9 Neutropenia, unspecified; R19.7 Diarrhea, unspecified; E87.6 Hypokalemia; D80.1 Nonfamilial hypogammaglobulinemia
CPT/HCPCS: 36415; 80053; 85025

== ENCOUNTER → 2025-01-25 12:52 | Outpatient (REF) | payer OTHER, SELFPAY ==
[2025-01-25 14:20] LABS: Hematocrit 29.9 % (37.0-47.0); Hemoglobin 9.2 g/dL (12.0-16.0); Mean Corp Hgb Conc. 30.8 g/dL (33.0-37.0); Mean Corpuscular Volume 84.9 fL (81.0-99.0); Nucleated Red Blood Cells % 0 %; Platelet Count 291 10^3/uL (130-400); Red Cell Dist. Width 14.7 % (11.5-14.5)
[2025-01-25 15:01] LABS: ALT (SGPT) < 10 U/L (0-35); AST (SGOT) 16 U/L (14-36); Albumin 4.0 g/dl (3.5-5.0); Alkaline Phosphatase 94 U/L (38-126); Blood Urea Nitrogen 8 mg/dl (7-17); Calcium 8.9 mg/dl (8.4-10.2); Carbon Dioxide 29 mmol/L (22-30); Chloride 105 mmol/L (98-107); Glucose 89 mg/dl (70-99); Potassium 4.5 mmol/L (3.5-5.1); Sodium 136 mmol/L (135-145); Total Protein 6.4 g/dl (6.3-8.2); eGFR > 60.00
== END ==
LOC: REG 12:52
PROVIDERS: ATTENDING PHYSICIAN Internal Medicine Hematology & Oncology; FAMILY PHYSICIAN Family Medicine; OTHER PHYSICIAN Internal Medicine Hematology & Oncology
DX: C90.00 Multiple myeloma not having achieved remission (principal); D70.9 Neutropenia, unspecified; R19.7 Diarrhea, unspecified; E87.6 Hypokalemia; D80.1 Nonfamilial hypogammaglobulinemia
CPT/HCPCS: 36415; 80053; 85025

== ENCOUNTER → 2025-02-01 11:56 | Outpatient (REF) | payer OTHER, SELFPAY ==
[2025-02-01 12:35] LABS: Hematocrit 30.3 % (37.0-47.0); Hemoglobin 9.0 g/dL (12.0-16.0); Mean Corp Hgb Conc. 29.7 g/dL (33.0-37.0); Mean Corpuscular Volume 82.8 fL (81.0-99.0); Nucleated Red Blood Cells % 0 %; Platelet Count 282 10^3/uL (130-400); Red Cell Dist. Width 14.8 % (11.5-14.5)
[2025-02-01 12:55] LABS: ALT (SGPT) < 10 U/L (0-35); AST (SGOT) 17 U/L (14-36); Albumin 4.1 g/dl (3.5-5.0); Alkaline Phosphatase 78 U/L (38-126); Blood Urea Nitrogen 8 mg/dl (7-17); Calcium 9.3 mg/dl (8.4-10.2); Carbon Dioxide 28 mmol/L (22-30); Chloride 102 mmol/L (98-107); Glucose 92 mg/dl (70-99); Potassium 4.6 mmol/L (3.5-5.1); Sodium 135 mmol/L (135-145); Total Protein 6.4 g/dl (6.3-8.2); eGFR > 60.00
== END ==
LOC: REG 11:56
PROVIDERS: ATTENDING PHYSICIAN Internal Medicine Hematology & Oncology; FAMILY PHYSICIAN Family Medicine
DX: C90.00 Multiple myeloma not having achieved remission (principal); D70.9 Neutropenia, unspecified; R19.7 Diarrhea, unspecified; E87.6 Hypokalemia; D80.1 Nonfamilial hypogammaglobulinemia
CPT/HCPCS: 36415; 80053; 85025

== ENCOUNTER → 2025-02-08 13:40 | Outpatient (REF) | payer OTHER, SELFPAY ==
[2025-02-08 15:11] LABS: Hematocrit 30.3 % (37.0-47.0); Hemoglobin 9.1 g/dL (12.0-16.0); Mean Corp Hgb Conc. 30.0 g/dL (33.0-37.0); Mean Corpuscular Volume 83.0 fL (81.0-99.0); Nucleated Red Blood Cells % 0 %; Platelet Count 250 10^3/uL (130-400); Red Cell Dist. Width 14.5 % (11.5-14.5)
[2025-02-08 15:33] LABS: ALT (SGPT) < 10 U/L (0-35); AST (SGOT) 18 U/L (14-36); Albumin 4.0 g/dl (3.5-5.0); Alkaline Phosphatase 85 U/L (38-126); Blood Urea Nitrogen 8 mg/dl (7-17); Calcium 8.8 mg/dl (8.4-10.2); Carbon Dioxide 29 mmol/L (22-30); Chloride 105 mmol/L (98-107); Glucose 88 mg/dl (70-99); Potassium 4.4 mmol/L (3.5-5.1); Sodium 138 mmol/L (135-145); Total Protein 6.9 g/dl (6.3-8.2); eGFR > 60.00
== END ==
LOC: REG 13:40
PROVIDERS: ATTENDING PHYSICIAN Internal Medicine Hematology & Oncology; FAMILY PHYSICIAN Family Medicine
DX: C90.00 Multiple myeloma not having achieved remission (principal); D70.9 Neutropenia, unspecified; R19.7 Diarrhea, unspecified; E87.6 Hypokalemia; D80.1 Nonfamilial hypogammaglobulinemia
CPT/HCPCS: 36415; 80053; 85025

== ENCOUNTER → 2025-02-15 13:11 | Outpatient (REF) | payer OTHER, SELFPAY ==
[2025-02-15 14:27] LABS: Hematocrit 31.7 % (37.0-47.0); Hemoglobin 9.5 g/dL (12.0-16.0); Mean Corp Hgb Conc. 30.0 g/dL (33.0-37.0); Mean Corpuscular Volume 79.8 fL (81.0-99.0); Nucleated Red Blood Cells % 0 %; Platelet Count 268 10^3/uL (130-400); Red Cell Dist. Width 14.8 % (11.5-14.5)
[2025-02-15 14:57] LABS: ALT (SGPT) < 10 U/L (0-35); AST (SGOT) 22 U/L (14-36); Albumin 4.1 g/dl (3.5-5.0); Alkaline Phosphatase 82 U/L (38-126); Blood Urea Nitrogen 14 mg/dl (7-17); Calcium 9.3 mg/dl (8.4-10.2); Carbon Dioxide 30 mmol/L (22-30); Chloride 102 mmol/L (98-107); Glucose 79 mg/dl (70-99); Potassium 4.3 mmol/L (3.5-5.1); Sodium 136 mmol/L (135-145); Total Protein 6.9 g/dl (6.3-8.2); eGFR > 60.00
== END ==
LOC: REG 13:11
PROVIDERS: ATTENDING PHYSICIAN Internal Medicine Hematology & Oncology; FAMILY PHYSICIAN Family Medicine
DX: C90.00 Multiple myeloma not having achieved remission (principal); D70.9 Neutropenia, unspecified; R19.7 Diarrhea, unspecified; E87.6 Hypokalemia; D80.1 Nonfamilial hypogammaglobulinemia
CPT/HCPCS: 36415; 80053; 85025

== ENCOUNTER → 2025-02-22 12:47 | Outpatient (REF) | payer OTHER, SELFPAY ==
[2025-02-22 14:33] LABS: Hematocrit 31.7 % (37.0-47.0); Hemoglobin 9.3 g/dL (12.0-16.0); Mean Corp Hgb Conc. 29.3 g/dL (33.0-37.0); Mean Corpuscular Volume 80.9 fL (81.0-99.0); Nucleated Red Blood Cells % 0 %; Platelet Count 331 10^3/uL (130-400); Red Cell Dist. Width 14.9 % (11.5-14.5)
[2025-02-22 14:54] LABS: ALT (SGPT) 12 U/L (0-35); AST (SGOT) 17 U/L (14-36); Albumin 4.1 g/dl (3.5-5.0); Alkaline Phosphatase 75 U/L (38-126); Blood Urea Nitrogen 14 mg/dl (7-17); Calcium 8.9 mg/dl (8.4-10.2); Carbon Dioxide 26 mmol/L (22-30); Chloride 103 mmol/L (98-107); Glucose 99 mg/dl (70-99); Potassium 3.8 mmol/L (3.5-5.1); Sodium 134 mmol/L (135-145); Total Protein 6.8 g/dl (6.3-8.2); eGFR > 60.00
== END ==
LOC: REG 12:47
PROVIDERS: ATTENDING PHYSICIAN Internal Medicine Hematology & Oncology; FAMILY PHYSICIAN Family Medicine
DX: C90.00 Multiple myeloma not having achieved remission (principal); D70.9 Neutropenia, unspecified; R19.7 Diarrhea, unspecified; E87.6 Hypokalemia; D80.1 Nonfamilial hypogammaglobulinemia
CPT/HCPCS: 36415; 80053; 85025

== ENCOUNTER → 2025-03-01 12:44 | Outpatient (REF) | payer OTHER, SELFPAY ==
[2025-03-01 13:23] LABS: Hematocrit 32.5 % (37.0-47.0); Hemoglobin 9.4 g/dL (12.0-16.0); Mean Corp Hgb Conc. 28.9 g/dL (33.0-37.0); Mean Corpuscular Volume 82.3 fL (81.0-99.0); Nucleated Red Blood Cells % 0 %; Platelet Count 344 10^3/uL (130-400); Red Cell Dist. Width 15.4 % (11.5-14.5)
[2025-03-01 13:36] LABS: ALT (SGPT) < 10 U/L (0-35); AST (SGOT) 15 U/L (14-36); Albumin 4.4 g/dl (3.5-5.0); Alkaline Phosphatase 63 U/L (38-126); Blood Urea Nitrogen 18 mg/dl (7-17); Calcium 10.2 mg/dl (8.4-10.2); Carbon Dioxide 29 mmol/L (22-30); Chloride 100 mmol/L (98-107); Glucose 94 mg/dl (70-99); Potassium 4.2 mmol/L (3.5-5.1); Sodium 135 mmol/L (135-145); Total Protein 6.8 g/dl (6.3-8.2); eGFR > 60.00
== END ==
LOC: REG 12:44
PROVIDERS: ATTENDING PHYSICIAN Internal Medicine Hematology & Oncology; FAMILY PHYSICIAN Family Medicine
DX: C90.00 Multiple myeloma not having achieved remission (principal); D70.9 Neutropenia, unspecified; R19.7 Diarrhea, unspecified; E87.6 Hypokalemia; D80.1 Nonfamilial hypogammaglobulinemia
CPT/HCPCS: 36415; 80053; 85025

== ENCOUNTER → 2025-03-08 11:40 | Outpatient (REF) | payer OTHER, SELFPAY ==
[2025-03-08 12:21] LABS: Hematocrit 31.4 % (37.0-47.0); Hemoglobin 9.3 g/dL (12.0-16.0); Mean Corp Hgb Conc. 29.6 g/dL (33.0-37.0); Mean Corpuscular Volume 80.3 fL (81.0-99.0); Nucleated Red Blood Cells % 0 %; Platelet Count 292 10^3/uL (130-400); Red Cell Dist. Width 16.2 % (11.5-14.5)
[2025-03-08 12:41] LABS: ALT (SGPT) < 10 U/L (0-35); AST (SGOT) 17 U/L (14-36); Albumin 4.2 g/dl (3.5-5.0); Alkaline Phosphatase 66 U/L (38-126); Blood Urea Nitrogen 12 mg/dl (7-17); Calcium 9.4 mg/dl (8.4-10.2); Carbon Dioxide 29 mmol/L (22-30); Chloride 102 mmol/L (98-107); Glucose 97 mg/dl (70-99); Potassium 4.0 mmol/L (3.5-5.1); Sodium 137 mmol/L (135-145); Total Protein 7.2 g/dl (6.3-8.2); eGFR > 60.00
== END ==
LOC: REG 11:40
PROVIDERS: ATTENDING PHYSICIAN Internal Medicine Hematology & Oncology; FAMILY PHYSICIAN Family Medicine; REFERRING PHYSICIAN Internal Medicine Hematology & Oncology
DX: C90.00 Multiple myeloma not having achieved remission (principal); D70.9 Neutropenia, unspecified; R19.7 Diarrhea, unspecified; E87.6 Hypokalemia; D80.1 Nonfamilial hypogammaglobulinemia
CPT/HCPCS: 36415; 80053; 85025

== ENCOUNTER → 2025-03-22 12:20 | Outpatient (REF) | payer OTHER, SELFPAY ==
[2025-03-22 13:20] LABS: Hematocrit 30.0 % (37.0-47.0); Hemoglobin 8.9 g/dL (12.0-16.0); Mean Corp Hgb Conc. 29.7 g/dL (33.0-37.0); Mean Corpuscular Volume 80.2 fL (81.0-99.0); Nucleated Red Blood Cells % 0 %; Platelet Count 217 10^3/uL (130-400); Red Cell Dist. Width 17.3 % (11.5-14.5)
[2025-03-22 14:47] LABS: ALT (SGPT) < 10 U/L (0-35); AST (SGOT) 19 U/L (14-36); Albumin 3.9 g/dl (3.5-5.0); Alkaline Phosphatase 57 U/L (38-126); Blood Urea Nitrogen 11 mg/dl (7-17); Calcium 8.8 mg/dl (8.4-10.2); Carbon Dioxide 32 mmol/L (22-30); Chloride 100 mmol/L (98-107); Glucose 89 mg/dl (70-99); Potassium 3.8 mmol/L (3.5-5.1); Sodium 135 mmol/L (135-145); Total Protein 6.3 g/dl (6.3-8.2); eGFR > 60.00
== END ==
LOC: REG 12:20
PROVIDERS: ATTENDING PHYSICIAN Internal Medicine Hematology & Oncology; FAMILY PHYSICIAN Family Medicine; OTHER PHYSICIAN Internal Medicine Hematology & Oncology
DX: C90.00 Multiple myeloma not having achieved remission (principal); D70.9 Neutropenia, unspecified; R19.7 Diarrhea, unspecified; E87.6 Hypokalemia; D80.1 Nonfamilial hypogammaglobulinemia
CPT/HCPCS: 36415; 80053; 85025

== ENCOUNTER → 2025-03-31 13:53 | Outpatient (REF) | payer OTHER, SELFPAY ==
[2025-03-31 15:21] LABS: ALT (SGPT) < 10 U/L (0-35); AST (SGOT) 18 U/L (14-36); Albumin 3.9 g/dl (3.5-5.0); Alkaline Phosphatase 55 U/L (38-126); Blood Urea Nitrogen 9 mg/dl (7-17); Calcium 9.1 mg/dl (8.4-10.2); Carbon Dioxide 30 mmol/L (22-30); Chloride 103 mmol/L (98-107); Glucose 90 mg/dl (70-99); Potassium 4.1 mmol/L (3.5-5.1); Sodium 135 mmol/L (135-145); Total Protein 6.3 g/dl (6.3-8.2); eGFR > 60.00
[2025-03-31 15:35] LABS: Anisocytosis 1+; Hematocrit 30.6 % (37.0-47.0); Hemoglobin 8.7 g/dL (12.0-16.0); Mean Corp Hgb Conc. 28.4 g/dL (33.0-37.0); Mean Corpuscular Volume 82.3 fL (81.0-99.0); Normal RBC Morphology No; Nucleated Red Blood Cells % 0 %; Platelet Count 207 10^3/uL (130-400); Red Cell Dist. Width 17.2 % (11.5-14.5)
[2025-03-31 15:36] LABS: Hypochromasia 2+; Microcytosis 1+
== END ==
LOC: REG 13:53
PROVIDERS: ATTENDING PHYSICIAN Internal Medicine Hematology & Oncology; FAMILY PHYSICIAN Family Medicine; OTHER PHYSICIAN Internal Medicine Hematology & Oncology
DX: C90.00 Multiple myeloma not having achieved remission (principal); D70.9 Neutropenia, unspecified; R19.7 Diarrhea, unspecified; E87.6 Hypokalemia; D80.1 Nonfamilial hypogammaglobulinemia
CPT/HCPCS: 36415; 80053; 85025

== ENCOUNTER → 2025-04-15 12:01 | Outpatient (REF) | payer OTHER, SELFPAY ==
[2025-04-15 12:43] LABS: Hematocrit 31.6 % (37.0-47.0); Hemoglobin 8.8 g/dL (12.0-16.0); Mean Corp Hgb Conc. 27.8 g/dL (33.0-37.0); Mean Corpuscular Volume 80.2 fL (81.0-99.0); Nucleated Red Blood Cells % 0 %; Platelet Count 238 10^3/uL (130-400); Red Cell Dist. Width 17.2 % (11.5-14.5)
[2025-04-15 13:12] LABS: ALT (SGPT) 10 U/L (0-35); AST (SGOT) 19 U/L (14-36); Albumin 4.0 g/dl (3.5-5.0); Alkaline Phosphatase 58 U/L (38-126); Blood Urea Nitrogen 9 mg/dl (7-17); Calcium 8.7 mg/dl (8.4-10.2); Carbon Dioxide 26 mmol/L (22-30); Chloride 103 mmol/L (98-107); Glucose 84 mg/dl (70-99); Potassium 4.0 mmol/L (3.5-5.1); Sodium 136 mmol/L (135-145); Total Protein 6.7 g/dl (6.3-8.2); eGFR > 60.00
== END ==
LOC: REG 12:01
PROVIDERS: ATTENDING PHYSICIAN Internal Medicine Hematology & Oncology; FAMILY PHYSICIAN Internal Medicine Hematology & Oncology
DX: C90.00 Multiple myeloma not having achieved remission (principal); D70.9 Neutropenia, unspecified; R19.7 Diarrhea, unspecified; E87.6 Hypokalemia; D80.1 Nonfamilial hypogammaglobulinemia
CPT/HCPCS: 36415; 80053; 85025

== ENCOUNTER → 2025-04-28 13:11 | Outpatient (REF) | payer OTHER, SELFPAY ==
[2025-04-28 14:18] LABS: Hematocrit 29.7 % (37.0-47.0); Hemoglobin 8.6 g/dL (12.0-16.0); Mean Corp Hgb Conc. 29.0 g/dL (33.0-37.0); Mean Corpuscular Volume 77.5 fL (81.0-99.0); Nucleated Red Blood Cells % 0 %; Platelet Count 283 10^3/uL (130-400); Red Cell Dist. Width 17.3 % (11.5-14.5)
[2025-04-28 14:45] LABS: ALT (SGPT) < 10 U/L (0-35); AST (SGOT) 19 U/L (14-36); Albumin 4.3 g/dl (3.5-5.0); Alkaline Phosphatase 62 U/L (38-126); Blood Urea Nitrogen 9 mg/dl (7-17); Calcium 9.4 mg/dl (8.4-10.2); Carbon Dioxide 29 mmol/L (22-30); Chloride 102 mmol/L (98-107); Glucose 90 mg/dl (70-99); Potassium 4.2 mmol/L (3.5-5.1); Sodium 136 mmol/L (135-145); Total Protein 6.8 g/dl (6.3-8.2); eGFR > 60.00
== END ==
LOC: REG 13:11
PROVIDERS: ATTENDING PHYSICIAN Internal Medicine Hematology & Oncology; FAMILY PHYSICIAN Family Medicine; OTHER PHYSICIAN Internal Medicine Hematology & Oncology
DX: D70.9 Neutropenia, unspecified (principal); C90.00 Multiple myeloma not having achieved remission; R19.7 Diarrhea, unspecified; E87.6 Hypokalemia; D80.1 Nonfamilial hypogammaglobulinemia
CPT/HCPCS: 36415; 80053; 85025